=== PATIENT | female | born 1990 | race Caucasian/White ===

== ENCOUNTER → 2016-05-27 | Outpatient (CLI) | payer SELFPAY | END | disposition home or self-care (01) | LOC: LABWHC1 09:02 | PROVIDERS: ATTEND Obstetrics & Gynecology | DX: Z34.80 Encounter for supervision of other normal pregnancy, unspecified trimester (principal); Z3A.00 Weeks of gestation of pregnancy not specified | CPT/HCPCS: 36415; 84702 ==

== ENCOUNTER → 2016-07-21 | Outpatient (CLI) | payer OTHER ==
--- NOTE | 2016-07-21 10:41 | US ---
EXAMINATION TYPE: US OB <= 14 wk fetus DATE OF EXAM: 07/21/2016 10:30 AM COMPARISON: NONE CLINICAL HISTORY: Z36 CONFIRM DATES. EXAM PERFORMED: EXAM MEASUREMENTS: GESTATIONAL AGE / DATING Physician Established: (12 weeks/1 days) EDC: 02/01/2017 Dates by LMP: (12 weeks/1 days) EDC: 02/01/2017 Dates by First Scan: this is first scan Dates by Current Scan for: (12 weeks/2 days) EDC: 01/31/2017 MATERNAL ANATOMY Uterus: 14.4 x 6.0 x 8.1 Right Ovary: 3.4 x 1.8 x 2.3 cm Left Ovary: 3.0 x 3.5 x 2.1 cm Post CDS / Adnexa: wnl Presence of free fluid: none GESTATION / SURVEY CRL: 5.6 cm (12 weeks/2 days) Yolk Sac (normal less than 6mm): not seen Heart Rate: 155 bpm Rhythm: Normal IUP: Viable IUP Date of LMP: end march, correlates with NETTE IMPRESSION: viable IUP that correlates with LMP
[2016-07-21 11:24] LABS: Glucose 79 mg/dL (74-99); Non-African American GFR(MDRD) >60 (>60 ml/min/1.73 sqM)
[2016-07-21 11:33] LABS: CH 26.9; CHCM 33.1; HCT 40.3 % (34.0-46.0); HDW 2.63; HGB 13.4 gm/dL (11.4-16.0); MCH 27.2 pg (25.0-35.0); MCHC 33.3 g/dL (31.0-37.0); MCV 81.6 fL (80.0-100.0); Mean Platelet Volume 7.2; RBC 4.93 m/uL (3.80-5.40); RDW 13.3 % (11.5-15.5); WBC 8.8 k/uL (3.8-10.6)
[2016-07-21 11:53] LABS: Hepatitis B Surface Ag Index 0.06
[2016-07-22 03:46] LABS: Toxoplasma Antibody (IgG) <3.0 IU/mL (<7.2)
[2016-07-22 08:00] LABS: HIV-1/HIV-2 Ab Screen NONREAC (NON REAC)
== END | disposition home or self-care (01) ==
LOC: RADUSWWP 10:09
PROVIDERS: ATTEND Obstetrics & Gynecology
DX: Z34.81 Encounter for supervision of other normal pregnancy, first trimester (principal); O26.811 Pregnancy related exhaustion and fatigue, first trimester; Z3A.12 12 weeks gestation of pregnancy
CPT/HCPCS: 36415; 76801; 82565; 82947; 85027; 86762; 86777; 86778; 86780; 86850; 86900; 86901; 87340; 87389

== ENCOUNTER 2016-12-25 | Outpatient (CLI) | payer OTHER ==
--- NOTE | 2016-12-26 07:27 | P.MSEPDOC ---
Presenting Problems - Arrival Data Date of Arrival on Unit: 12/25/16 Time of Arrival on Unit: 12:51 Mode of Transport: Ambulatory - Complaint OB-Reason for Admission/Chief Complaint: Decreased Movement Medical History - Information : 4 Para: 1 Term: 1 : 0 Abortions: Spontaneous or Elective: 0 Number of Living Children: 1 - Gestational Age Gestational Age by NETTE (wks/days): 34 Weeks and 4 Days Review of Systems - Review of Systems Constitutional: No problems Breast: No problems ENT: No problems Cardiovascular: No problems Respiratory: No problems Gastrointestinal: No problems Genitourinary: No problems Musculoskeletal: No problems Neurological: No problems Skin: No problems Vital Signs - Temperature Temperature: 97.2 F Temperature Source: Tympanic - Pulse Right Brachial Pulse Rate: 113 Pulse Assessment Method: Automatic Cuff - Respirations Respiratory Rate: 16 Oxygen Delivery Method: Room Air - Blood Pressure Right Arm Blood Pressure: 129/75 Blood Pressure Mean: 93 Blood Pressure Source: Automatic Cuff Medical Screen Scoring (Pre) - Cervical Exam Dilation: Exam Deferred Effacement: Exam Deferred Membranes: Intact - Uterine Contractions Frequency: N/A Duration: N/A Intensity: N/A - Maternal Vital Signs Maternal Temperature: N/A Maternal Blood Pressure: N/A Signs of Preeclampsia: N/A Maternal Respirations: N/A - Maternal Trauma Maternal Trauma: N/A - Assessment Baseline FHR: 125 Heart Rate - NICHD Category: Category I (Normal) = 0 NST: Reactive Position: N/A Station: N/A - Total Score Total Score (Pre): 0 - Level of Risk Level of Risk: Low (0-5) Physician Notification (Pre) - Physician Notified Physician Notified Date: 12/25/16 Physician Notified Time: 12:30 Physician/Practitioner Notifed:: Dr. Castro Spoke With: Dr. Castro New Order Received: No Disposition - Disposition OB Disposition: Discharge to home Discharge Date: 12/25/16 Discharge Time: 12:45 I agree with the RN Medical Screening Exam: Yes Risk & Benefit of care provided described in d/c instruction: Yes Diagnosis: DECREASED MOVEMENTS, THIRD TRIMESTER, FETUS 1
== END 2016-12-25 14:36 | disposition home or self-care (01) ==
CPT/HCPCS: 59025; G0463; 99213

== ENCOUNTER 2017-01-27 10:11 | Inpatient (IN) | payer OTHER ==
[2017-01-27 10:51] LABS: Basophils % (A) 0 %; CHCM 32.5; Eosinophils # (A) 0.2 k/uL (0-0.7); Eosinophils % (A) 2 %; HCT 37.3 % (34.0-46.0); HDW 2.63; Luc # (Auto) 0.14; Luc % (Auto) 1; Lymphocytes # (A) 1.7 k/uL (1.0-4.8); Lymphocytes % (A) 17 %; MCH 25.7 pg (25.0-35.0); MCV 80.4 fL (80.0-100.0); Mean Platelet Volume 9.3; Monocytes # (A) 0.4 k/uL (0-1.0); Monocytes % (A) 4 %; Neutrophils # (A) 7.8 k/uL (1.3-7.7); Neutrophils % (A) 76 %; RBC 4.64 m/uL (3.80-5.40); RDW 15.4 % (11.5-15.5); WBC 10.2 k/uL (3.8-10.6); WBC (Perox) 10.71
[2017-01-27 11:00] LABS: Partial Thromboplastin Time 24.8 sec (22.0-30.0); Prothrombin Time 9.8 sec (9.0-12.0)
[2017-01-27] MEDS ORDERED: OXYTOCIN 10 UNIT/ML 1 ML VIAL IM PRN (11:30)
[2017-01-27] MEDS ORDERED: METHYLERGONOVINE 0.2 MG/ML 1 ML AMP IM PRN (11:30)
[2017-01-27] MEDS ORDERED: OXYTOCIN 20 UNITS/1000 ML NS 1,000 ML IV SCH ×2 (11:30→22:15)
[2017-01-27] MEDS ORDERED: TERBUTALINE 1 MG/ML VIAL SQ PRN (11:30)
[2017-01-27] MEDS ORDERED: CARBOPROST TROMETHAMINE 250 MCG/ML 1 ML AMP IM PRN (11:30)
[2017-01-27] MEDS ORDERED: LIDOCAINE 1% (PF) 10 MG/ML (30 ML SDV) SQ PRN (11:30)
[2017-01-27 11:33] LABS: Appearance,Urine Clear (Clear); Bilirubin,Urine Negative (Negative); Glucose,Urine (UA) Negative (Negative); Ketones,Urine Negative (Negative); Leukocyte Esterase,Urine Negative (Negative); Nitrite,Urine Negative (Negative); PH, Urine 6.5 (5.0-8.0); Protein,Urine Negative (Negative); Specific Gravity,Urine 1.008 (1.001-1.035); UA Billing (MACRO vs. MICRO) CHEM; Urobilinogen,Urine <2.0 mg/dL (<2.0)
[2017-01-27] MEDS: LACTATED RINGERS 1,000 ML IV SCH ×2 (11:43→17:07)
[2017-01-27 11:45] LABS: Blood Urea Nitrogen 6 mg/dL (7-17); Non-African American GFR(MDRD) >60 (>60 ml/min/1.73 sqM)
[2017-01-27 11:54] VITALS: BMI 45.4
[2017-01-27] MEDS ORDERED: BUTORPHANOL 1 MG/ML 1 ML VIAL IV PRN (15:46)
[2017-01-27] MEDS ORDERED: BUPIVACAINE (PF) 0.25% 30 ML VIAL ONE (17:14)
[2017-01-27] MEDS ORDERED: SODIUM CHLORIDE 0.9% 100 ML BAG ONE (17:14)
[2017-01-27] MEDS ORDERED: fentaNYL (PF) 50 MCG/ML 5 ML AMP ONE (17:14)
--- NOTE | 2017-01-27 17:31 | P.HPOB ---
History of Present Illness H&P Date: 01/27/17 Chief Complaint: gestational hypertension This patient is a pleasant 26-year-old 4 para 1 female estimated date of confinement 02/01/2017 estimated gestational age 39-2/7 weeks who presented to my office today for routine symmetrical visit and was found to have an elevated pressure 142/86. Patient's blood pressures normally are 120s over 80s so this is a change and she was complaining of a headache. She does evaluation here in labor and delivery shows again for the most part good blood pressures but a couple elevated pressures and I recommended proceed with delivery at this time. Preeclampsia blood work was negative. heart tones are reassuring. has been uncomplicated. Review of Systems Constitutional: Denies chills, Denies fever Cardiovascular: Denies chest pain, Denies shortness of breath Gastrointestinal: Reports heartburn Genitourinary: Reports Menstruation: Reports amenorrhea Neurological: Reports headaches Past Medical History Past Medical History: No Reported History, Hyperlipidemia Additional Past Medical History / Comment(s): patient is had a term vaginal delivery in March 2014. History of Any Multi-Drug Resistant Organisms: None Reported Past Surgical History: Cholecystectomy Past Anesthesia/Blood Transfusion Reactions: No Reported Reaction Past Psychological History: No Psychological Hx Reported Smoking Status: Never smoker Past Alcohol Use History: None Reported Past Drug Use History: None Reported - Past Family History Mother Family Medical History: No Reported History Medications and Allergies Home Medications Medication Instructions Recorded Confirmed Type Pnv with Ca,No.71/Iron/FA 1 tab PO DAILY 04/13/14 01/27/17 History [Vol-Plus Tablet] Allergies Allergy/AdvReac Type Severity Reaction Status Date / Time Penicillins Allergy Unknown Verified 01/27/17 10:20 Childhood Exam - Vital Signs Vital signs: Vital Signs Temp Pulse Resp BP 01/27/17 11:50 97.6 F 88 18 177/86 Intake and Output 01/27/17 01/27/17 01/27/17 06:59 14:59 22:59 Other: # Voids 3 Weight 135.624 kg Patient Weight 01/28/17 06:59 Weight 135.624 kg - OBG Physical Exam Abdomen: bowel sounds normal (Gravid and obese.), no diffuse tenderness, no bruit present, no guarding noted, no hepatomegaly, no splenomegaly, no mass Vulva: both: normal Vagina: normal moisture, no discharge Cervix: no lesion (cervix is 2 cm dilated 50% effaced and soft.), no discharge Uterus: enlarged (fundal height is 41 cm.) Results blood work shows she is AB+, rubella immune, RPR nonreactive, HIV nonreactive, hepatitis B negative, group B strep was negative, Glucola was normal, ultrasounds have been normal. Result Diagrams: 01/27/17 10:30 01/27/17 10:30 Abnormal Lab Results - Last 24 Hours (Table) 01/27/17 01/27/17 Range/Units 10:30 10:30 Neutrophils # 7.8 H (1.3-7.7) k/uL BUN 6 L (7-17) mg/dL Creatinine 0.47 L (0.52-1.04) mg/dL Assessment and Plan (1) Third trimester Narrative/Plan: This is a pleasant 26-year-old 4 para 1 female 39-2/7 weeks gestation with gestational hypertension without evidence of preeclampsia. Patient is a favorable cervix and is term therefore plan is to proceed with delivery at this time. Current Visit: Yes Status: Acute Code(s): Z34.93 - ENCNTR FOR SUPRVSN OF NORMAL PREG, UNSP, THIRD TRIMESTER SNOMED Code(s): 36587887 (2) Gestational hypertension Current Visit: Yes Status: Acute Code(s): O13.9 - GESTATIONAL HTN W/O SIGNIFICANT PROTEINURIA, UNSP TRIMESTER SNOMED Code(s): 88653467
[2017-01-27] MEDS ORDERED: BUPIVACAINE (PF) 0.25% 25 ML, fentaNYL (PF) 200 MCG in SODIUM CHLORIDE 0.9% 71 ML EPIDURAL ONE (17:34)
[2017-01-27] MEDS ORDERED: WITCH HAZEL 1 EACH MED..PAD TOPICAL PRN (22:05)
[2017-01-27] MEDS ORDERED: Acetaminophen-Codeine 300-30mg TAB PO PRN ×2 (22:05)
[2017-01-27] MEDS ORDERED: BISACODYL 10 MG SUPP RECTAL PRN (22:05)
[2017-01-27] MEDS ORDERED: diphenhydrAMINE 50 MG/ML 1 ML VIAL IVP PRN (22:05)
[2017-01-27] MEDS ORDERED: HYDROCORTISONE 2.5% RECTAL CREAM 30 GM TUBE RECTAL PRN (22:05)
[2017-01-27] MEDS ORDERED: ACETAMINOPHEN TAB 325 MG TAB PO PRN (22:05)
[2017-01-27] MEDS ORDERED: SIMETHICONE 80 MG CHEWABLE PO PRN (22:05)
[2017-01-27] MEDS ORDERED: diphenhydrAMINE 25 MG CAP PO PRN (22:05)
[2017-01-27] MEDS ORDERED: ZOLPIDEM 5 MG TAB PO PRN (22:05)
[2017-01-27] MEDS ORDERED: BENZOCAINE/MENTHOL SPRAY 1 GM/SPRAY AEROSOL TOPICAL PRN (22:05)
[2017-01-27] MEDS ORDERED: LANOLIN CREAM 5 GM TUBE TOPICAL PRN (22:05)
--- NOTE | 2017-01-27 22:14 | P.PROBDLV ---
Vaginal Delivery Note - . Vaginal Delivery Note: Normal vaginal delivery viable female Apgars 8 and 9 delivery time is 2152 hours. Please see dictated H&P for intimate details of this patient's admission. Brief summary this is a pleasant 26-year-old 4 para 1 female 39-2/7 weeks gestation who is admitted to labor and delivery for induction of labor secondary to gestational hypertension. Admission patient is 2 cm dilated and has artificial rupture membranes for clear fluid. Labor is induced with Pitocin per protocol. Patient receives an epidural at 3 cm dilated and then progresses to approximately 5 cm for a few hours. At this time patient then progresses quickly to complete pushes the head to the perineum. Posterior perineum was supported and we have controlled delivery of the ' s head over the intact perineum. Mouth and nares are bulb suctioned and there is a very loose nuchal cord. The 's anterior shoulder was then spontaneously delivered without effort and posterior shoulder and rest this 's body. This is a vigorous viable female Apgars are 8 and 9 delivery time was 2152 hrs. has spontaneous respirations and good cry and grossly appears normal. After delivery of the infant the umbilical cord is doubly clamped and cut appears to be trivascular. Senna spontaneously delivered intact. Inspection of perineum shows a 1 cm superficial laceration of the posterior perineum which is repaired with 3-0 Vicryl [id number] stitch. No other lacerations are noted. Estimated blood loss is 1 50 mL. There are no complications. Infant and mother stable delivery room.
[2017-01-27] MEDS: IBUPROFEN 600 MG TAB PO PRN (23:06)
--- NOTE | 2017-01-28 06:34 | P.PNOBGVD ---
Subjective - Subjective Patient reports: Reports appetite normal, Reports voiding normally, Reports pain well controlled, Reports ambulating normally : doing well Objective - Latest Vital Signs Latest vital signs: Vital Signs Temp Pulse Resp BP 01/28/17 04:00 97.8 F 99 18 145/78 01/27/17 23:59 97.2 F L 103 H 16 131/77 01/27/17 23:29 96 16 140/83 01/27/17 22:59 92 16 143/74 01/27/17 22:44 96.9 F L 88 16 121/61 01/27/17 22:28 85 16 119/59 01/27/17 22:13 92 18 127/59 01/27/17 21:57 96 18 134/60 01/27/17 11:50 97.6 F 88 18 177/86 Intake and Output 01/27/17 01/27/17 01/28/17 14:59 22:59 06:59 Output Total 150 150 Balance -150 -150 Output: Urine 150 Estimated Blood Loss 150 Other: # Voids 3 1 Weight 135.624 kg Patient Weight 01/28/17 06:59 Weight 135.624 kg - Exam Lungs: bilateral: normal Chest: Normal S1, Normal S2 Extremities: Present: normal Abdomen: Present: normal appearance, soft Uterus: Present: normal, firm - Labs Labs: Abnormal Lab Results - Last 24 Hours (Table) 01/27/17 01/27/17 Range/Units 10:30 10:30 Neutrophils # 7.8 H (1.3-7.7) k/uL BUN 6 L (7-17) mg/dL Creatinine 0.47 L (0.52-1.04) mg/dL Assessment and Plan Assessment: post day #1. Patient is resting without complaints. Vital signs are stable. Blood pressures continued to improve. Uterus is firm nontender she's having normal lochia. My impression this is a normal course. Plan is to continue close observation of her blood pressures, routine post care, and most likely discharge home tomorrow. (1) Third trimester Current Visit: Yes Status: Acute Code(s): Z34.93 - ENCNTR FOR SUPRVSN OF NORMAL PREG, UNSP, THIRD TRIMESTER SNOMED Code(s): 34648153 (2) Gestational hypertension Current Visit: Yes Status: Acute Code(s): O13.9 - GESTATIONAL HTN W/O SIGNIFICANT PROTEINURIA, UNSP TRIMESTER SNOMED Code(s): 12539259
[2017-01-28] MEDS: IBUPROFEN 600 MG TAB PO PRN ×3 (07:22→19:56)
[2017-01-28] MEDS: SENNOSIDES-DOCUSATE SODIUM 1 EACH TAB PO SCH ×2 (07:22→19:56)
[2017-01-29] MEDS: IBUPROFEN 600 MG TAB PO PRN ×2 (02:47→07:43)
--- NOTE | 2017-01-29 06:03 | P.PNOBGVD ---
Subjective - Subjective Patient reports: Reports appetite normal, Reports voiding normally, Reports pain well controlled, Reports ambulating normally : doing well Objective - Latest Vital Signs Latest vital signs: Vital Signs Temp Pulse Resp BP Pulse Ox 01/29/17 01:22 98.2 F 47 L 18 160/58 01/29/17 00:00 97 18 01/28/17 20:00 98.4 F 97 18 147/56 01/28/17 15:22 97.9 F 85 16 125/90 95 01/28/17 08:00 97.9 F 86 16 129/73 98 Intake and Output 01/28/17 01/28/17 01/29/17 14:59 22:59 06:59 Other: # Voids 1 - Exam Lungs: bilateral: normal Chest: Normal S1, Normal S2 Extremities: Present: normal Abdomen: Present: normal appearance, soft Uterus: Present: normal, firm Assessment and Plan (1) Third trimester Narrative/Plan: Post day #2. Patient is resting without new complaints. Vital signs are stable and she is afebrile. Uterus is firm nontender she's having normal lochia. She's had rare isolated elevated blood pressures otherwise blood pressures are fine. Patient wishes to go home today and felt to be stable for discharge home follow up with me in 6 weeks. To continue routine post care. Current Visit: Yes Status: Acute Code(s): Z34.93 - ENCNTR FOR SUPRVSN OF NORMAL PREG, UNSP, THIRD TRIMESTER SNOMED Code(s): 83976207 (2) Gestational hypertension Current Visit: Yes Status: Acute Code(s): O13.9 - GESTATIONAL HTN W/O SIGNIFICANT PROTEINURIA, UNSP TRIMESTER SNOMED Code(s): 39100708
--- NOTE | 2017-01-29 06:05 | P.DS ---
Providers Date of admission: 01/27/17 11:13 Expected date of discharge: 01/29/17 Attending physician: Leon Castro - Discharge Diagnosis(es) (1) Third trimester Current Visit: Yes Status: Acute (2) Gestational hypertension Current Visit: Yes Status: Acute Hospital Course: Please see dictated H&P for intimate details of this patient's admission. Brief summary this is a pleasant 26-year-old 4 para 1 female 39-2/7 weeks gestation who is admitted from the office for elevated blood pressures. Patient had induction of labor quickly goes on have vaginal delivery viable female . Please see dictated delivery note. day #2 patient's felt be stable for discharge home follow up with me in 6 weeks. Procedures: Induction of labor and normal vaginal delivery. Patient Condition at Discharge: Good Plan - Discharge Summary Discharge Rx Participant: Yes New Discharge Prescriptions: New Acetaminophen-Codeine 300-30mg [Tylenol w/codeine #3] 1 - 2 each PO Q4HR PRN #30 tab PRN Reason: Mild Pain exceeding Tylenol Ibuprofen [Motrin] 600 mg PO Q6HR PRN #40 tab PRN Reason: Mild Pain Or Fever >= 100.5 No Action Pnv with Ca,No.71/Iron/FA [Vol-Plus Tablet] 1 tab PO DAILY Discharge Medication List Pnv with Ca,No.71/Iron/FA [Vol-Plus Tablet] 1 tab PO DAILY 04/13/14 [History] Acetaminophen-Codeine 300-30mg [Tylenol w/codeine #3] 1 - 2 each PO Q4HR PRN # 30 tab 01/29/17 [Rx] Ibuprofen [Motrin] 600 mg PO Q6HR PRN #40 tab 01/29/17 [Rx] Follow up Appointment(s)/Referral(s): Leon Castro MD [STAFF PHYSICIAN] - 03/12/17 9:45 am Patient Instructions/Handouts: Vaginal Delivery (DC) Discharge Disposition: HOME SELF-CARE
[2017-01-29 07:55] VITALS: BP 108/91; PULSE 88; RESP 16; TEMP 97.8
== END 2017-01-29 10:20 | disposition home or self-care (01) | DRG 560 ==
LOC: FBPOP 10:11 → 4FBP 11:13
PROVIDERS: ADMIT Obstetrics & Gynecology; ATTEND Obstetrics & Gynecology
PROC: 10E0XZZ Delivery of Products of Conception, External Approach (ICD-10-PCS; principal; 2017-01-27)
PROC: 0HQ9XZZ Repair Perineum Skin, External Approach (ICD-10-PCS; 2017-01-27)
PROC: 3E033VJ Introduction of Other Hormone into Peripheral Vein, Percutaneous Approach (ICD-10-PCS; 2017-01-27)
PROC: 10907ZC Drainage of Amniotic Fluid, Therapeutic from Products of Conception, Via Natural or Artificial Opening (ICD-10-PCS; 2017-01-27)
PROC: 00HU33Z Insertion of Infusion Device into Spinal Canal, Percutaneous Approach (ICD-10-PCS; 2017-01-27)
PROC: 3E0R3BZ Introduction of Anesthetic Agent into Spinal Canal, Percutaneous Approach (ICD-10-PCS; 2017-01-27)
DX: O13.4 Gestational [pregnancy-induced] hypertension without significant proteinuria, complicating childbirth (principal); O69.81X0 Labor and delivery complicated by cord around neck, without compression, not applicable or unspecified; O70.0 First degree perineal laceration during delivery; Z37.0 Single live birth; Z3A.39 39 weeks gestation of pregnancy; Z79.899 Other long term (current) drug therapy; Z90.49 Acquired absence of other specified parts of digestive tract; Z88.0 Allergy status to penicillin
CPT/HCPCS: 59025; 81003; 82565; 83615; 84450; 84460; 84520; 84550; 85025; 85610; 85730; 88307; 99215

== ENCOUNTER → 2017-11-08 | Outpatient (CLI) | payer OTHER ==
--- NOTE | 2017-11-08 11:03 | US ---
EXAMINATION TYPE: Transabdominal DATE OF EXAM: 06/29/17 COMPARISON: 07/21/2016 CLINICAL HISTORY: O76 Absent Heart Tones. EXAM PERFORMED: Transabdominal (TA) EXAM MEASUREMENTS: GESTATIONAL AGE / DATING Physician Established: (11 weeks/5 days) EDC: 05/25/2018 Dates by LMP: (11 weeks/5 days) EDC: 05/25/2018 Dates by First Scan: No previous this is first scan Dates by Current Scan for: (11 weeks/3 days) EDC: 05/27/2018 MATERNAL ANATOMY Uterus: 14.5 x 7.5 x 8.9 cm Right Ovary: 2.9 x 2.9 x 2.9 cm Left Ovary: 3.4 x 3.6 x 2.0 cm Post CDS / Adnexa: wnl Presence of free fluid: none GESTATION / SURVEY CRL: 4.5 cm (11 weeks/3 days) Yolk Sac (normal less than 6mm): 0.5 cm Heart Rate: 152 bpm Rhythm: Normal IUP: Live IUP Date of LMP: 08/18/2017 Life IUP that correlates with LMP. IMPRESSION: Single live intrauterine with a sonographic age of 11 weeks and 3 days and estimated date o f delivery of 05/27/2018, concordant with menstrual age.
== END | disposition home or self-care (01) ==
LOC: RADUSWWP 10:04
PROVIDERS: ATTEND Obstetrics & Gynecology Obstetrics
DX: Z36.89 Encounter for other specified antenatal screening (principal); Z3A.11 11 weeks gestation of pregnancy
CPT/HCPCS: 76801

== ENCOUNTER 2018-02-11 18:54 | Observation (INO) | payer OTHER ==
[2018-02-11 19:59] LABS: Appearance,Urine Clear (Clear); Bilirubin,Urine Negative (Negative); Blood,Urine Negative (Negative); Color,Urine Light Yellow; Glucose,Urine (UA) Negative (Negative); Ketones,Urine Negative (Negative); Leukocyte Esterase,Urine Negative (Negative); Nitrite,Urine Negative (Negative); Protein,Urine Negative (Negative); Specific Gravity,Urine 1.011 (1.001-1.035); Urobilinogen,Urine <2.0 mg/dL (<2.0)
[2018-02-11] MEDS: BETAMET ACET-BETAMETH SOD PHOS 6 MG/ML VIAL IM SCH (21:27)
[2018-02-11] MEDS ORDERED: LACTATED RINGERS 1,000 ML IV ONE (21:31)
[2018-02-11] MEDS ORDERED: LIDOCAINE 1% INJ 10MG/ML (20 ML MDV) SQ PRN (21:31)
--- NOTE | 2018-02-11 21:31 | P.HPOB ---
History of Present Illness H&P Date: 02/11/18 Chief Complaint: Cramping This is a 27 year old 5 para 20-2 woman who has an estimated due date of 05/25/2018 based on LMP consistent with first trimester ultrasound. She presents at 25+ weeks gestation with several hours of worsening lower abdominal cramping. She reports having a slip and fall over 24 hours ago. She is not sure she had her abdomen but did hit her upper right arm and shoulder. She was evaluated by her primary care physician's for an injury which was negative. Unfortunately as the day progressed today she developed some lower abdominal pain and cramping. She was uncertain if this was bowel related but became concerned she was having contractions so she came in. She denies vaginal bleeding or leakage of fluids. Her has otherwise been uncomplicated up until now. She is on a aspirin 81 mg daily for history of 2 previous miscarriages. On evaluation in labor and delivery triage she has an irritable uterine pattern and positive heart tones consistent with gestational age. Obstetric history: Normal spontaneous vaginal deliveries at term in 2016 and 2014. She had first trimester miscarriages in 2014 and 2015. Laboratory data: Blood type AB+, antibody screen negative, rubella immune, VDRL nonreactive, hepatitis B surface antigen negative, HIV negative, gonorrhea and clinic cultures negative, hemoglobin A1c 5.1, early glucose tolerance testing 84 , normal Pap smear. Review of Systems All systems: negative Past Medical History Past Medical History: No Reported History, Hyperlipidemia Additional Past Medical History / Comment(s): patient is had a term vaginal delivery in March 20142016 History of Any Multi-Drug Resistant Organisms: None Reported Past Surgical History: Cholecystectomy Past Anesthesia/Blood Transfusion Reactions: No Reported Reaction Smoking Status: Never smoker - Past Family History Mother Family Medical History: No Reported History Medications and Allergies Home Medications Medication Instructions Recorded Confirmed Type Pnv with Ca,No.71/Iron/FA 1 tab PO DAILY 04/13/14 02/11/18 History [Vol-Plus Tablet] Aspirin 1 tab PO DAILY 02/11/18 02/11/18 History Allergies Allergy/AdvReac Type Severity Reaction Status Date / Time Penicillins Allergy Unknown Verified 02/11/18 19:09 Childhood Exam Intake and Output 02/11/18 02/11/18 02/11/18 06:59 14:59 22:59 Other: Weight 127.913 kg This is a morbidly obese, comfortable appearing female. HEENT is unremarkable. Her breathing is unlabored. Heart is a regular rate and rhythm. The abdomen is obese, soft and nontender with a fundal height at approximately the umbilicus. This is nontender. She has 1+ bilateral lower extremity edema. On pelvic examination there is extensive redundant vaginal tissue. The cervix is 1-1/2 cm at the external os and secondary to patient's body habitus and high station the internal os is difficult to assess. There is no obvious presenting part or dilation of the internal os. There is no bleeding or fluid noted. Assessment and Plan (1) 25 to 26 weeks gestation of Current Visit: Yes Status: Acute Code(s): VGD1283 - SNOMED Code(s): 978130932 (2) labor Current Visit: Yes Status: Acute Code(s): O60.00 - LABOR WITHOUT DELIVERY, UNSPECIFIED TRIMESTER SNOMED Code(s): 4478094 (3) Obesity Current Visit: Yes Status: Acute Code(s): E66.9 - OBESITY, UNSPECIFIED SNOMED Code(s): 892008902 (4) Fall Current Visit: Yes Status: Acute Code(s): W19.XXXA - UNSPECIFIED FALL, INITIAL ENCOUNTER SNOMED Code(s): 7256048 Plan: 27-year-old 5 para 20-2 woman at 25+ weeks gestation admitted for observation to rule out labor and/or abruption status post fall approximately 24 hours ago. Betamethasone for lung maturity will be administered now. Ultrasound for assessment of placenta and cervical length is ordered. fibronectin is currently pending. If it is positive strong consideration to transfer to a tertiary care facility will be made. At this time status is currently reassuring by external monitoring and she has no evidence of active labor. Time with Patient: Greater than 30
[2018-02-11] MEDS ORDERED: LACTATED RINGERS 1,000 ML IV SCH (21:45)
[2018-02-11 22:12] LABS: Basophils % (A) 0 %; Eosinophils # (A) 0.3 k/uL (0-0.7); Eosinophils % (A) 3 %; HCT 38.3 % (34.0-46.0); HGB 12.7 gm/dL (11.4-16.0); Lymphocytes # (A) 3.1 k/uL (1.0-4.8); Lymphocytes % (A) 25 %; MCH 26.7 pg (25.0-35.0); MCHC 33.1 g/dL (31.0-37.0); MCV 80.6 fL (80.0-100.0); Mean Platelet Volume 7.6; Monocytes # (A) 0.4 k/uL (0-1.0); Monocytes % (A) 4 %; Neutrophils # (A) 8.1 k/uL (1.3-7.7); Neutrophils % (A) 67 %; Platelet Count 193 k/uL (150-450); RBC 4.76 m/uL (3.80-5.40); RDW 14.3 % (11.5-15.5)
--- NOTE | 2018-02-11 22:45 | US ---
EXAMINATION TYPE: US OB limited DATE OF EXAM: 02/11/2018 COMPARISON: NONE CLINICAL HISTORY: 25 weeks possible labor, s/p fall. EXAM PERFORMED: Transvaginal (TV) and Transabdominal (TA) GESTATIONAL AGE / DATING Physician Established: (25 weeks/2 days) EDC: 05/25/2018 Dates by Current Scan: No growth performed on today?s study per ordering physician SURVEY PLACENTA: Anterior/fundal PREVIA: No Ultrasound evidence of abruption? No YUKO: 17.7 cm Normal Ultrasound evidence of premature rupture of membranes? No CERVICAL LENGTH (transvaginal: norm> 2.5cm): 3.5 cm (Supplemental transvaginal imaging performed to verify cervical length.) Ultrasound evidence of cervical incompetence? No PRESENTATION: Breech LIE: Longitudinal HEART RATE: 154 bpm RHYTHM: Normal IMPRESSION: This limited exam shows no evidence of a complicating process. Cervix is closed. Fluid i s adequate.
[2018-02-12 00:36] VITALS: BMI 42.8
[2018-02-12] MEDS ORDERED: CALCIUM CARBONATE 500 MG CHEWABLE PO PRN (09:12)
--- NOTE | 2018-02-12 10:44 | P.PNOBGAP ---
Subjective - Subjective Principal diagnosis: Cramping status post fall Interval history: She rested well overnight, minimal cramping. Denies bleeding or leakage of fluid. Reports good movement. Antepartum ROS: Reports movement normal, Denies new complaints, Denies loss of fluid, Denies vaginal bleeding, Denies contractions Objective - Vital Signs Vital Signs: Intake and Output 02/11/18 02/12/18 02/12/18 22:59 06:59 14:59 Other: Weight 127.913 kg 127.913 kg - Exam FHR: auscultation normal Auscultation: bilateral: normal Abdomen: Present: normal appearance, soft. Absent: tenderness Uterus: Present: normal. Absent: tenderness - Labs Labs: Abnormal Labs 02/11/18 21:47 WBC 12.0 H Neutrophils # 8.1 H Assessment and Plan (1) 25 to 26 weeks gestation of Narrative/Plan: 27-year-old 5 para 2021 woman at 25-3/7 weeks gestation status post fall 48 hours ago. She was admitted for observation secondary to some cramping and possible cervical dilation at the external os. Throughout the night she had a resolution of her cramping. Her fibronectin was negative. Cervical length by ultrasound is 3.5 cm and she has no evidence of active contraction pattern. Plan therefore is to continue observation through administration of the second dose of betamethasone and then discharge home from observation. She will be seen on Wednesday, February 14 in the office for reevaluation. Current Visit: Yes Status: Acute Code(s): HBG4756 - SNOMED Code(s): 455841540 (2) labor Current Visit: Yes Status: Acute Code(s): O60.00 - LABOR WITHOUT DELIVERY, UNSPECIFIED TRIMESTER SNOMED Code(s): 5259278 (3) Obesity Current Visit: Yes Status: Acute Code(s): E66.9 - OBESITY, UNSPECIFIED SNOMED Code(s): 936457186 (4) Fall Current Visit: Yes Status: Acute Code(s): W19.XXXA - UNSPECIFIED FALL, INITIAL ENCOUNTER SNOMED Code(s): 5404439
[2018-02-12] MEDS ORDERED: ACETAMINOPHEN TAB 325 MG TAB PO PRN (17:41)
[2018-02-12 20:02] VITALS: RESP 16
[2018-02-12] MEDS: BETAMET ACET-BETAMETH SOD PHOS 6 MG/ML VIAL IM SCH (21:30)
[2018-02-12 22:16] VITALS: BP 117/59; PULSE 76; TEMP 97.3
== END 2018-02-12 21:35 | disposition home or self-care (01) ==
LOC: FBPOP 18:54 → 4FBP 21:51
PROVIDERS: ADMIT Obstetrics & Gynecology; ATTEND Obstetrics & Gynecology Obstetrics
DX: O60.02 Preterm labor without delivery, second trimester (principal); O99.212 Obesity complicating pregnancy, second trimester; Z3A.25 25 weeks gestation of pregnancy; Z90.49 Acquired absence of other specified parts of digestive tract; Z79.82 Long term (current) use of aspirin; Z88.0 Allergy status to penicillin; E66.01 Morbid (severe) obesity due to excess calories; W01.0XXA Fall on same level from slipping, tripping and stumbling without subsequent striking against object, initial encounter
CPT/HCPCS: 96360 ×2; 96372 ×2; 82731; 85025; 81003; 76815; G0463; G0378 ×2; J0702 ×2; 99214

== ENCOUNTER 2018-02-18 19:55 | Outpatient (CLI) | payer OTHER ==
[2018-02-18 20:29] LABS: Appearance,Urine Clear (Clear); Bilirubin,Urine Negative (Negative); Blood,Urine Negative (Negative); Color,Urine Yellow; Glucose,Urine (UA) Negative (Negative); Ketones,Urine Negative (Negative); Leukocyte Esterase,Urine Negative (Negative); Nitrite,Urine Negative (Negative); Protein,Urine Trace (Negative); Specific Gravity,Urine 1.029 (1.001-1.035); Urobilinogen,Urine <2.0 mg/dL (<2.0)
[2018-02-18 20:54] VITALS: BP 121/68; PULSE 90; RESP 16; TEMP 97
--- NOTE | 2018-02-22 18:21 | P.MSEPDOC ---
Presenting Problems - Arrival Data Date of Arrival on Unit: 02/18/18 Time of Arrival on Unit: 19:55 Mode of Transport: Ambulatory - Complaint OB-Reason for Admission/Chief Complaint: Other Comment: cramping Medical History - Information : 5 Para: 2 Term: 2 : 0 Abortions: Spontaneous or Elective: 2 Number of Living Children: 2 - Gestational Age Gestational Age by NETTE (wks/days): 26 Weeks and 2 Days Review of Systems - Review of Systems Constitutional: No problems Breast: No problems ENT: No problems Cardiovascular: No problems Respiratory: No problems Gastrointestinal: No problems Genitourinary: No problems Musculoskeletal: No problems Neurological: No problems Skin: No problems Vital Signs - Temperature Temperature: 97 F Temperature Source: Temporal Artery Scan - Pulse Right Brachial Pulse Rate: 90 Pulse Assessment Method: Automatic Cuff - Respirations Respiratory Rate: 16 Oxygen Delivery Method: Room Air O2 Sat by Pulse Oximetry: 97 - Blood Pressure Right Arm Blood Pressure: 121/68 Blood Pressure Mean: 85 Blood Pressure Source: Automatic Cuff Medical Screen Scoring (Pre) - Cervical Exam Dilation: 1-3 cm = 1 Membranes: Intact - Uterine Contractions Frequency: N/A Duration: N/A Intensity: N/A - Maternal Vital Signs Maternal Temperature: N/A Maternal Blood Pressure: N/A Signs of Preeclampsia: N/A Maternal Respirations: N/A - Pain Assessment Pain Location and Character: Lower, Back, Abdomen Pain Scale Used: Numeric (1 - 10) Pain Intensity: 6 Pain Description: *Acute, Cramping Pain Frequency: Intermittent Pain Duration Units: Minutes Pain Behavior: None Exhibited Pain Aggravating Factors: None - Maternal Trauma Maternal Trauma: N/A - Assessment Baseline FHR: 145 Heart Rate - NICHD Category: Category I (Normal) = 0 NST: Reactive Position: N/A Station: N/A - Total Score Total Score (Pre): 1 - Level of Risk Level of Risk: Low (0-5) Physician Notification (Pre) - Physician Notified Physician Notified Date: 02/18/18 Physician Notified Time: 20:47 Physician/Practitioner Notifed:: Dr. Garcia Spoke With: Dr. Garcia - Notification Comment Comment: Dr. Garcia called and given report on pt in triage. pt c/o. vs wnl. ffn. obtained, amnisure negative. Vag exam of /-3. Orders recieved to d/c pt to home if. ffn is negative. Disposition - Disposition OB Disposition: Discharge to home Discharge Date: 02/18/18 Discharge Time: 21:00 I agree with the RN Medical Screening Exam: Yes Risk & Benefit of care provided described in d/c instruction: Yes Diagnosis: FALSE LABOR BEFORE 37 COMPLETED WEEKS OF GEST, THIRD TRI
== END 2018-02-18 21:00 | disposition home or self-care (01) ==
LOC: FBPOP 19:55
PROVIDERS: ATTEND Obstetrics & Gynecology Obstetrics
DX: O47.03 False labor before 37 completed weeks of gestation, third trimester (principal); Z3A.26 26 weeks gestation of pregnancy
CPT/HCPCS: 84112; 82731; 81003; G0463; 99213

== ENCOUNTER 2018-03-01 17:11 | Outpatient (CLI) | payer OTHER ==
[2018-03-01 20:50] VITALS: PULSE 92; RESP 16; TEMP 98.9
--- NOTE | 2018-03-03 07:54 | P.MSEPDOC ---
Presenting Problems - Arrival Data Date of Arrival on Unit: 03/01/18 Time of Arrival on Unit: 17:11 Mode of Transport: Ambulatory - Complaint OB-Reason for Admission/Chief Complaint: Pain Comment: pt states is here due to increased cramping and pressure points to suprapubic. area. rates pain at around 7 to 8. past preg history 2 vaginal term deliveies. pt was. here Feb 11 and where cervix found to be 2 cm 50 % . amnisure and Ffn completed both. visits both negative and celestone 2 doses 02/11 and . pt states pain is constant so. she just wants to be sure everything is ok Medical History - Information : 5 Para: 2 Term: 2 : 0 Abortions: Spontaneous or Elective: 0 Number of Living Children: 0 - Gestational Age Gestational Age by NETTE (wks/days): 28 Weeks and 0 Days Review of Systems - Review of Systems Constitutional: No problems Breast: No problems ENT: No problems Cardiovascular: No problems Respiratory: No problems Gastrointestinal: No problems Genitourinary: No problems Musculoskeletal: No problems Neurological: No problems Skin: No problems Vital Signs - Temperature Temperature: 98.9 F Temperature Source: Oral - Pulse Right Pulse Rate: 92 Pulse Assessment Method: Automatic Cuff - Respirations Respiratory Rate: 16 Oxygen Delivery Method: Room Air O2 Sat by Pulse Oximetry: 98 Medical Screen Scoring (Pre) - Cervical Exam Dilation: 1-3 cm = 1 - Uterine Contractions Frequency: N/A Duration: N/A Intensity: N/A - Maternal Vital Signs Maternal Temperature: N/A Maternal Blood Pressure: N/A Signs of Preeclampsia: N/A Maternal Respirations: N/A - Pain Assessment Pain Location and Character: Pelvic Pain Scale Used: Numeric (1 - 10) Pain Intensity: 7 Pain Description: Pressure - Maternal Trauma Maternal Trauma: N/A - Assessment Baseline FHR: 140 Station: N/A - Total Score Total Score (Pre): 1 - Level of Risk Level of Risk: N/A Physician Notification (Pre) - Notification Comment Comment: cervix 2cm external os, secondary to pts body habitus and alannah station. internal os is difficult to assess but funneled no obvious dilation of internal os. no. bleeding vag discharge noted. Dr Madrid aware not able to attempt NSt on pt due to body shape unless we sit by. her bed the entire time and hold it. states we do not need nst. Ffn negative Disposition - Disposition OB Disposition: Physician follow up in office, Discharge to home Discharge Date: 03/01/18 Discharge Time: 20:30 I agree with the RN Medical Screening Exam: Yes Risk & Benefit of care provided described in d/c instruction: Yes Diagnosis: FALSE LABOR, UNSPECIFIED
== END 2018-03-01 20:30 | disposition home or self-care (01) ==
LOC: FBPOP 17:11
PROVIDERS: ATTEND Obstetrics & Gynecology
DX: O47.9 False labor, unspecified (principal); Z3A.28 28 weeks gestation of pregnancy
CPT/HCPCS: 82731; G0463; 99213

== ENCOUNTER 2018-03-27 18:57 | Outpatient (CLI) | payer OTHER ==
[2018-03-27 20:19] LABS: Appearance,Urine Clear (Clear); Bilirubin,Urine Negative (Negative); Blood,Urine Negative (Negative); Color,Urine Yellow; Glucose,Urine (UA) Negative (Negative); Ketones,Urine Negative (Negative); Leukocyte Esterase,Urine Negative (Negative); Nitrite,Urine Negative (Negative); Protein,Urine Trace (Negative); Specific Gravity,Urine 1.024 (1.001-1.035); Urobilinogen,Urine <2.0 mg/dL (<2.0)
[2018-03-27 21:12] VITALS: BP 119/64; PULSE 91; RESP 16; TEMP 97
--- NOTE | 2018-04-12 09:11 | P.MSEPDOC ---
Presenting Problems - Arrival Data Date of Arrival on Unit: 03/27/18 Time of Arrival on Unit: 18:57 Mode of Transport: Wheelchair - Complaint OB-Reason for Admission/Chief Complaint: Possible Onset of Labor Medical History - Information : 5 Para: 2 Term: 2 : 0 Abortions: Spontaneous or Elective: 2 Number of Living Children: 2 - Gestational Age Gestational Age by NETTE (wks/days): 31 Weeks and 4 Days Review of Systems - Review of Systems Constitutional: No problems Breast: No problems ENT: No problems Cardiovascular: No problems Respiratory: No problems Gastrointestinal: No problems Genitourinary: No problems Musculoskeletal: No problems Neurological: No problems Skin: No problems Vital Signs - Temperature Temperature: 97 F Temperature Source: Temporal Artery Scan - Pulse Right Brachial Pulse Rate: 91 Pulse Assessment Method: Automatic Cuff - Respirations Respiratory Rate: 16 Oxygen Delivery Method: Room Air O2 Sat by Pulse Oximetry: 98 - Blood Pressure Right Arm Blood Pressure: 119/64 Blood Pressure Mean: 82 Blood Pressure Source: Automatic Cuff Medical Screen Scoring (Pre) - Cervical Exam Dilation: 0 cm = 0 Membranes: Intact - Uterine Contractions Frequency: N/A Duration: N/A Intensity: N/A - Maternal Vital Signs Maternal Temperature: N/A Maternal Blood Pressure: N/A Signs of Preeclampsia: N/A Maternal Respirations: N/A - Pain Assessment Pain Location and Character: Lower, Abdomen Pain Scale Used: Numeric (1 - 10) Pain Intensity: 6 Pain Description: Cramping Pain Frequency: Intermittent Pain Duration Units: Minutes Pain Behavior: Vocalization Pain Aggravating Factors: None - Assessment Baseline FHR: 130 Heart Rate - NICHD Category: Category I (Normal) = 0 NST: Reactive Position: N/A - Total Score Total Score (Pre): 0 - Level of Risk Level of Risk: Low (0-5) Physician Notification (Pre) - Physician Notified Physician Notified Date: 03/27/18 Physician Notified Time: 19:39 Physician/Practitioner Notifed:: Dr. Madrid New Order Received: Yes - Notification Comment Comment: Dr. Madrid called and given report on pt in tr. Pt c/o. VS wnl. reactive nst. Orders recieved to collect FFN, perform vag exam. send UA. To call with results. Medical Screen Scoring (Post) - Uterine Contractions Frequency: N/A Duration: N/A Intensity: N/A - Maternal Vital Signs Maternal Temperature: N/A Maternal Blood Pressure: N/A Signs of Preeclampsia: N/A Maternal Respirations: N/A - Pain Assessment Pain Location and Character: Lower, Abdomen Pain Scale Used: Numeric (1 - 10) Pain Intensity: 4 Pain Description: Cramping Pain Frequency: Intermittent Pain Duration Units: Minutes Pain Behavior: None Exhibited - Assessment Heart Rate: 135 Heart Rate - NICHD Category: Category I (Normal) = 0 NST: Reactive Position: N/A Station: N/A - Total Score Total Score (Post): 0 - Post Treatment Level of Risk Post Treatment Level of Risk: Low (0-5) Physician Notification (Post) - Physician Notified Physician Notified Date: 03/27/18 Physician Notified Time: 20:59 Physician/Practitioner Notified:: Dr. Madrid Spoke With: Dr. Madrid New Order Received: Yes - Notification Comment Comment: Dr. Madrid given report on pt lab results and vag exam. U/a results, negative. FFN. Orders recieved to d/c pt to home. To educate pt to increase fluids. Maintain. bedrest, pelvic rest. Disposition - Disposition OB Disposition: Discharge to home Discharge Date: 03/27/18 Discharge Time: 21:05 I agree with the RN Medical Screening Exam: Yes Risk & Benefit of care provided described in d/c instruction: Yes Diagnosis: FALSE LABOR BEFORE 37 COMPLETED WEEKS OF GEST, THIRD TRI
== END 2018-03-27 21:05 | disposition home or self-care (01) ==
LOC: FBPOP 18:57
PROVIDERS: ATTEND Obstetrics & Gynecology
DX: O47.03 False labor before 37 completed weeks of gestation, third trimester (principal); Z3A.31 31 weeks gestation of pregnancy
CPT/HCPCS: 59025; 82731; 81003; G0463; 99213

== ENCOUNTER 2018-04-12 12:37 | Outpatient (CLI) | payer SELFPAY ==
[2018-04-12 13:45] VITALS: BP 117/71; PULSE 115; RESP 16; TEMP 97.1
--- NOTE | 2018-06-01 10:34 | P.MSEPDOC ---
Presenting Problems - Arrival Data Date of Arrival on Unit: 04/12/18 Time of Arrival on Unit: 12:40 Mode of Transport: Ambulatory - Complaint Comment: fall yesterday afternoon with no trauma to belly Medical History - Information : 5 Para: 3 Term: 3 : 0 Abortions: Spontaneous or Elective: 1 Number of Living Children: 3 - Gestational Age Gestational Age by NETTE (wks/days): 33 Weeks and 6 Days Review of Systems - Review of Systems Constitutional: No problems Breast: No problems ENT: No problems Cardiovascular: No problems Respiratory: No problems Gastrointestinal: No problems Genitourinary: No problems Musculoskeletal: No problems Neurological: No problems Skin: No problems Vital Signs - Temperature Temperature: 97.1 F Temperature Source: Temporal Artery Scan - Pulse Right Brachial Pulse Rate: 115 Pulse Assessment Method: Automatic Cuff - Respirations Respiratory Rate: 16 Oxygen Delivery Method: Room Air - Blood Pressure Right Arm Blood Pressure: 117/71 Blood Pressure Mean: 86 Blood Pressure Source: Automatic Cuff Medical Screen Scoring (Pre) - Cervical Exam Dilation: Exam Deferred Effacement: Exam Deferred - Uterine Contractions Frequency: N/A Duration: N/A Intensity: N/A - Maternal Vital Signs Maternal Temperature: N/A Maternal Blood Pressure: N/A Signs of Preeclampsia: N/A Maternal Respirations: N/A - Total Score Total Score (Pre): 0 - Level of Risk Level of Risk: N/A Physician Notification (Pre) - Physician Notified Physician Notified Date: 04/12/18 Physician Notified Time: 13:24 Physician/Practitioner Notifed:: titus Spoke With: titus New Order Received: Yes - Notification Comment Comment: pt may be discharged home, warm bath/shower, rest and tylenol if needed. Disposition - Disposition OB Disposition: Discharge to home Discharge Date: 04/12/18 Discharge Time: 13:31 I agree with the RN Medical Screening Exam: Yes Risk & Benefit of care provided described in d/c instruction: Yes Diagnosis: ACUTE PAIN DUE TO TRAUMA
== END 2018-04-12 13:31 | disposition home or self-care (01) ==
LOC: FBPOP 12:37
PROVIDERS: ATTEND Obstetrics & Gynecology Obstetrics
DX: O9A.213 Injury, poisoning and certain other consequences of external causes complicating pregnancy, third trimester (principal); G89.11 Acute pain due to trauma; Z3A.33 33 weeks gestation of pregnancy
CPT/HCPCS: 59025; 99213

== ENCOUNTER 2018-05-04 15:06 | Outpatient (CLI) | payer SELFPAY ==
[2018-05-04 17:25] VITALS: BP 119/64; PULSE 91; RESP 16; TEMP 97
--- NOTE | 2018-05-20 10:31 | P.MSEPDOC ---
Presenting Problems - Arrival Data Date of Arrival on Unit: 05/04/18 Time of Arrival on Unit: 15:06 Mode of Transport: Ambulatory - Complaint OB-Reason for Admission/Chief Complaint: Rule Out PROM Medical History - Information : 5 Para: 2 Term: 2 : 0 Abortions: Spontaneous or Elective: 2 Number of Living Children: 2 - Gestational Age Gestational Age by NETTE (wks/days): 37 Weeks and 0 Days Review of Systems - Review of Systems Constitutional: No problems Breast: No problems ENT: No problems Cardiovascular: No problems Respiratory: No problems Gastrointestinal: No problems Genitourinary: No problems Musculoskeletal: No problems Neurological: No problems Skin: No problems Vital Signs - Temperature Temperature: 97.0 F Temperature Source: Temporal Artery Scan - Pulse Right Sitting Brachial Pulse Rate: 91 Pulse Assessment Method: Automatic Cuff - Respirations Respiratory Rate: 16 Oxygen Delivery Method: Room Air O2 Sat by Pulse Oximetry: 97 - Blood Pressure Right Arm Sitting Blood Pressure: 119/64 Blood Pressure Mean: 82 Blood Pressure Source: Automatic Cuff Medical Screen Scoring (Pre) - Cervical Exam Dilation: Exam Deferred Effacement: Exam Deferred Membranes: Intact - Uterine Contractions Frequency: N/A Duration: N/A Intensity: N/A - Maternal Vital Signs Maternal Temperature: N/A Maternal Blood Pressure: N/A Signs of Preeclampsia: N/A Maternal Respirations: N/A - Pain Assessment Pain Scale Used: Numeric (1 - 10) Pain Intensity: 0 - Maternal Trauma Maternal Trauma: N/A - Assessment Baseline FHR: 115 Heart Rate - NICHD Category: Category I (Normal) = 0 NST: Reactive Position: N/A Station: N/A - Total Score Total Score (Pre): 0 - Level of Risk Level of Risk: Low (0-5) Physician Notification (Pre) - Physician Notified Physician Notified Date: 05/04/18 Physician Notified Time: 16:20 Spoke With: Julius New Order Received: Yes - Notification Comment Comment: ok to dc with instruction Physician Notification (Post) - Notification Comment Comment: amnisure negative, fhts reactive, vitals wnl Disposition - Disposition OB Disposition: Discharge to home, Written follow up instructions reviewed Discharge Date: 05/04/18 Discharge Time: 16:25 I agree with the RN Medical Screening Exam: Yes Risk & Benefit of care provided described in d/c instruction: Yes Diagnosis: FALSE LABOR BEFORE 37 COMPLETED WEEKS OF GEST, THIRD TRI
== END 2018-05-04 16:25 | disposition home or self-care (01) ==
LOC: FBPOP 15:06
PROVIDERS: ATTEND Obstetrics & Gynecology Obstetrics
DX: O47.1 False labor at or after 37 completed weeks of gestation (principal); Z3A.37 37 weeks gestation of pregnancy
CPT/HCPCS: 59025; 84112; 99213

== ENCOUNTER 2018-05-06 16:38 | Outpatient (CLI) | payer SELFPAY ==
[2018-05-06 18:43] VITALS: BP 136/71; PULSE 85; RESP 16; TEMP 97
--- NOTE | 2018-06-01 10:56 | P.MSEPDOC ---
Presenting Problems - Arrival Data Date of Arrival on Unit: 05/06/18 Time of Arrival on Unit: 17:15 Mode of Transport: Ambulatory - Complaint OB-Reason for Admission/Chief Complaint: Decreased Movement Medical History - Information : 5 Para: 2 Term: 2 : 0 Abortions: Spontaneous or Elective: 2 Number of Living Children: 2 - Gestational Age Gestational Age by NETTE (wks/days): 37 Weeks and 2 Days Review of Systems - Review of Systems Constitutional: No problems Breast: No problems ENT: No problems Cardiovascular: No problems Respiratory: No problems Gastrointestinal: No problems Genitourinary: No problems Musculoskeletal: No problems Neurological: No problems Skin: No problems Vital Signs - Temperature Temperature: 97.0 F Temperature Source: Tympanic - Pulse Right Brachial Pulse Rate: 85 Pulse Assessment Method: Automatic Cuff - Respirations Respiratory Rate: 16 Oxygen Delivery Method: Room Air - Blood Pressure Right Arm Blood Pressure: 136/71 Blood Pressure Mean: 92 Blood Pressure Source: Automatic Cuff Medical Screen Scoring (Pre) - Cervical Exam Dilation: 1-3 cm = 1 Membranes: Intact - Uterine Contractions Frequency: N/A Duration: N/A Intensity: N/A - Maternal Vital Signs Maternal Temperature: N/A Maternal Blood Pressure: N/A Signs of Preeclampsia: N/A Maternal Respirations: N/A - Pain Assessment Pain Scale Used: Numeric (1 - 10) Pain Intensity: 0 Pain Management Goal: 0 - Maternal Trauma Maternal Trauma: N/A - Assessment Baseline FHR: 125 Heart Rate - NICHD Category: Category I (Normal) = 0 NST: Reactive Position: N/A Station: N/A - Total Score Total Score (Pre): 1 - Level of Risk Level of Risk: Low (0-5) Physician Notification (Pre) - Physician Notified Physician Notified Date: 05/06/18 Physician Notified Time: 17:20 Physician/Practitioner Notifed:: Dr. Okeefe Spoke With: Dr. Okeefe New Order Received: Yes - Notification Comment Comment: recheck cervix in one hour if no change send home Disposition - Disposition OB Disposition: Discharge to home Discharge Date: 05/06/18 Discharge Time: 18:42 I agree with the RN Medical Screening Exam: Yes Risk & Benefit of care provided described in d/c instruction: Yes Diagnosis: DECREASED MOVEMENTS, THIRD TRIMESTER, FETUS 1
== END 2018-05-06 18:47 | disposition home or self-care (01) ==
LOC: FBPOP 16:38
PROVIDERS: ATTEND Obstetrics & Gynecology Obstetrics
DX: O36.8130 Decreased fetal movements, third trimester, not applicable or unspecified (principal); Z3A.37 37 weeks gestation of pregnancy
CPT/HCPCS: 59025; 99213

== ENCOUNTER 2018-05-18 06:00 | Inpatient (IN) | payer OTHER ==
[2018-05-18] MEDS ORDERED: CARBOPROST TROMETHAMINE 250 MCG/ML 1 ML AMP IM PRN (06:09)
[2018-05-18] MEDS ORDERED: LIDOCAINE 0.5% (PF) 5 MG/ML (50 ML SDV) SQ PRN (06:09)
[2018-05-18] MEDS ORDERED: TERBUTALINE 1 MG/ML VIAL SQ PRN (06:09)
[2018-05-18] MEDS ORDERED: METHYLERGONOVINE 0.2 MG/ML 1 ML AMP IM PRN (06:09)
[2018-05-18] MEDS ORDERED: OXYTOCIN 10 UNIT/ML 1 ML VIAL IM PRN (06:09)
[2018-05-18] MEDS ORDERED: LACTATED RINGERS 1,000 ML IV SCH (06:15)
[2018-05-18] MEDS ORDERED: OXYTOCIN 30 UNITS/500 ML NS 30 UNIT in SALINE 1 500ML.BAG IV SCH (06:15)
[2018-05-18 06:20] VITALS: BMI 44.5
[2018-05-18 06:29] LABS: Basophils % (A) 0 %; Eosinophils # (A) 0.2 k/uL (0-0.7); Eosinophils % (A) 2 %; HCT 39.4 % (34.0-46.0); HGB 12.9 gm/dL (11.4-16.0); Lymphocytes # (A) 2.7 k/uL (1.0-4.8); Lymphocytes % (A) 24 %; MCH 26.1 pg (25.0-35.0); MCHC 32.6 g/dL (31.0-37.0); MCV 80.1 fL (80.0-100.0); Mean Platelet Volume 7.8; Monocytes # (A) 0.5 k/uL (0-1.0); Monocytes % (A) 4 %; Neutrophils % (A) 69 %; Platelet Count 232 k/uL (150-450); RBC 4.92 m/uL (3.80-5.40); RDW 14.2 % (11.5-15.5); WBC 11.6 k/uL (3.8-10.6)
--- NOTE | 2018-05-18 09:30 | P.HPOB ---
History of Present Illness H&P Date: 05/18/18 Chief Complaint: IUP at 39-0/7 weeks, elective induction of labor. This is a very pleasant 27-year-old 5 para 20-2 at 39-0/7 weeks that presents to labor and delivery for elective induction of labor. Patient struggled with contractions throughout the and wishes delivery. Patient notes good movement occasional contractions she denies vaginal bleeding or loss of fluid. She has been receiving routine care with myself. Next para blood work showed a blood type of A+, rubella immune, hepatitis B surface engine negative, HIV negative, RPR nonreactive, GBS negative. Review of Systems Constitutional: Denies chills, Denies fatigue, Denies fever Ears, nose, mouth and throat: Denies headache Cardiovascular: Reports leg edema Respiratory: Denies cough, Denies dyspnea Gastrointestinal: Reports diarrhea, Denies constipation, Denies nausea, Denies vomiting Genitourinary: Reports Past Medical History Past Medical History: No Reported History Additional Past Medical History / Comment(s): patient is had a term vaginal delivery in March 2014, 2016 History of Any Multi-Drug Resistant Organisms: None Reported Past Surgical History: Cholecystectomy Past Anesthesia/Blood Transfusion Reactions: No Reported Reaction Past Psychological History: No Psychological Hx Reported Smoking Status: Never smoker Past Alcohol Use History: None Reported Past Drug Use History: None Reported - Past Family History Mother Family Medical History: No Reported History Medications and Allergies Home Medications Medication Instructions Recorded Confirmed Type Pnv with Ca,No.71/Iron/FA 1 tab PO DAILY 04/13/14 05/18/18 History [Vol-Plus Tablet] Aspirin 1 tab PO DAILY 02/11/18 05/18/18 History Allergies Allergy/AdvReac Type Severity Reaction Status Date / Time Penicillins Allergy Unknown Verified 05/18/18 06:09 Childhood Exam Osteopathic Statement: *. No significant issues noted on an osteopathic structural exam other than those noted in the History and Physical/Consult. Vital Signs Temp Pulse Resp BP Pulse Ox 05/18/18 06:07 97.1 F L 101 H 16 139/84 97 Intake and Output 05/17/18 05/18/18 05/18/18 22:59 06:59 14:59 Other: Weight 132.903 kg Targeted physical exam was performed on this date in general this is a well- nourished well-developed female in no acute distress. She exhibits nonlabored breathing in her lungs are clear to auscultation bilaterally, heart is known to have a regular rate and rhythm, heart tones are noted to be reactive and she is sebastien irregularly it is difficult to graft contractions secondary to her body habitus. On cervical exam she is noted to be 3 cm/50/-3, amniotomy is performed and clear fluid was obtained. Due to difficulty to monitor the heart tones secondary to body habitus the scalp electrode was placed in addition. Results Result Diagrams: 05/18/18 06:20 Abnormal Lab Results - Last 24 Hours (Table) 05/18/18 Range/Units 06:20 WBC 11.6 H (3.8-10.6) k/uL Neutrophils # 8.0 H (1.3-7.7) k/uL Assessment and Plan (1) Term Current Visit: Yes Status: Acute Code(s): Z34.80 - ENCOUNTER FOR SUPRVSN OF NORMAL , UNSP TRIMESTER SNOMED Code(s): 31351063 (2) Obesity Current Visit: No Status: Acute Code(s): E66.9 - OBESITY, UNSPECIFIED SNOMED Code(s): 642436190 Plan: Patient is admitted to labor and delivery for Pitocin induction of labor. Patient does request epidural we will consult anesthesia as needed. Anticipate normal spontaneous vaginal delivery later today.
[2018-05-18] MEDS ORDERED: ROPIVACAINE 100 MG, fentaNYL (PF) 200 MCG in SODIUM CHLORIDE 0.9% 76 ML EPIDURAL ONE (13:43)
[2018-05-18] MEDS ORDERED: WITCH HAZEL 1 EACH MED..PAD TOPICAL PRN (14:40)
[2018-05-18] MEDS ORDERED: LANOLIN CREAM 5 GM TUBE TOPICAL PRN (14:40)
[2018-05-18] MEDS ORDERED: diphenhydrAMINE 50 MG/ML 1 ML VIAL IVP PRN ×2 (14:40)
[2018-05-18] MEDS ORDERED: ZOLPIDEM 5 MG TAB PO PRN (14:40)
[2018-05-18] MEDS ORDERED: HYDROCORTISONE 2.5% RECTAL CREAM 30 GM TUBE RECTAL PRN (14:40)
[2018-05-18] MEDS ORDERED: BENZOCAINE/MENTHOL SPRAY 1 GM/SPRAY AEROSOL TOPICAL PRN (14:40)
[2018-05-18] MEDS ORDERED: diphenhydrAMINE 25 MG CAP PO PRN (14:40)
[2018-05-18] MEDS ORDERED: SIMETHICONE 80 MG CHEWABLE PO PRN (14:40)
[2018-05-18] MEDS ORDERED: diphenhydrAMINE 50 MG CAP PO PRN (14:40)
--- NOTE | 2018-05-18 14:44 | P.PROBDLV ---
Vaginal Delivery Note - . Vaginal Delivery Note: This is a 27-year-old 5 para 20-2 at 39 0/7 weeks that presented to labor and delivery for elective induction of labor this morning. Patient was started on Pitocin induction of labor progressed to 4 cm becoming uncomfortable and requesting epidural. Anesthesia placed epidural without difficulty. Patient progressed to complete began pushing and had a normal spontaneous vaginal delivery of a viable female at 1428, weight of 6 lbs. 11 oz. with Apgars of 8 and 9 at one and 5 minutes respectively. did have a spontaneous cry at delivery. After a two-minute delayed the umbilical cord was doubly clamped and cut and the placenta was delivered spontaneously intact with a three-vessel cord. Of note a loose nuchal cord was noted on delivery and delivered through. On inspection the patient's vaginal vault no lacerations were noted. Patient's uterus was firm and below the umbilicus at this time. Estimated blood loss 200 mL. Patient and tolerated delivery well and are resting comfortably
[2018-05-18] MEDS ORDERED: OXYTOCIN 20 UNITS/1000 ML NS 1,000 ML IV SCH (14:45)
[2018-05-18] MEDS: IBUPROFEN 600 MG TAB PO PRN ×2 (18:05→23:43)
[2018-05-18] MEDS: SENNOSIDES-DOCUSATE SODIUM 1 EACH TAB PO SCH (19:35)
[2018-05-18] MEDS: ACETAMINOPHEN TAB 325 MG TAB PO PRN (22:25)
[2018-05-19] MEDS: ACETAMINOPHEN TAB 325 MG TAB PO PRN ×3 (02:22→12:57)
[2018-05-19 07:16] LABS: Basophils % (A) 0 %; Eosinophils # (A) 0.2 k/uL (0-0.7); Eosinophils % (A) 2 %; HCT 33.6 % (34.0-46.0); HGB 10.8 gm/dL (11.4-16.0); Lymphocytes # (A) 2.8 k/uL (1.0-4.8); Lymphocytes % (A) 27 %; MCH 26.4 pg (25.0-35.0); MCHC 32.2 g/dL (31.0-37.0); MCV 82.2 fL (80.0-100.0); Mean Platelet Volume 9.1; Monocytes # (A) 0.4 k/uL (0-1.0); Monocytes % (A) 4 %; Neutrophils # (A) 6.7 k/uL (1.3-7.7); Neutrophils % (A) 66 %; Platelet Count 181 k/uL (150-450); RBC 4.09 m/uL (3.80-5.40); RDW 14.6 % (11.5-15.5); WBC 10.1 k/uL (3.8-10.6)
[2018-05-19] MEDS: SENNOSIDES-DOCUSATE SODIUM 1 EACH TAB PO SCH (07:35)
[2018-05-19 07:42] VITALS: BP 128/80; PULSE 94; RESP 18; TEMP 98.3
--- NOTE | 2018-05-19 08:14 | P.DS ---
Providers Date of admission: 05/18/18 06:03 Expected date of discharge: 05/19/18 Attending physician: Rosie Garcia Primary care physician: Stated None - Discharge Diagnosis(es) (1) Term Current Visit: Yes Status: Acute (2) Obesity Current Visit: No Status: Acute Hospital Course: This is a 27-year-old 5 para 20-2 at 39-0/7 weeks that presented to labor and delivery for elective induction of labor. Patient was admitted to labor and delivery Pitocin induction was begun. Amniotomy was performed and clear fluid was obtained. Patient progressed through labor eventually becoming complete and requesting epidural. This epidural was placed without the occulta by the anesthesia department. She progressed to complete began pushing and had a normal spontaneous vaginal delivery of a viable female infant at 1428, weight of 6 lbs. 11 oz. with Apgars of 8 and 9 at one and 5 minutes respectively. Patient's course has been uneventful. On this day #1 she is ambulating and voiding without difficulty. She is tolerating a regular diet without nausea or vomiting. Her lochia is moderate at this time. She denies concerns and does wish discharge home at 24 hours. Patient Condition at Discharge: Good Plan - Discharge Summary New Discharge Prescriptions: No Action Pnv with Ca,No.71/Iron/FA [Vol-Plus Tablet] 1 tab PO DAILY Aspirin 1 tab PO DAILY Discharge Medication List Pnv with Ca,No.71/Iron/FA [Vol-Plus Tablet] 1 tab PO DAILY 04/13/14 [History] Aspirin 1 tab PO DAILY 02/11/18 [History] Follow up Appointment(s)/Referral(s): Rosie Garcia DO [Doctor of Osteopathic Medicine] - 4 Weeks Patient Instructions/Handouts: Vaginal Delivery (DC), Vaginal Delivery (GEN) Discharge Disposition: HOME SELF-CARE
[2018-05-19] MEDS ORDERED: PRENATAL VIT-IRON-FOLIC ACID 1 EACH CAP PO SCH (09:00)
[2018-05-19] MEDS: IBUPROFEN 600 MG TAB PO PRN (09:38)
== END 2018-05-19 15:30 | disposition home or self-care (01) | DRG 807 ==
LOC: 4FBP 06:03
PROVIDERS: ADMIT Obstetrics & Gynecology Obstetrics; ATTEND Obstetrics & Gynecology Obstetrics
PROC: 10E0XZZ Delivery of Products of Conception, External Approach (ICD-10-PCS; principal; 2018-05-18)
PROC: 3E033VJ Introduction of Other Hormone into Peripheral Vein, Percutaneous Approach (ICD-10-PCS; 2018-05-18)
PROC: 10907ZC Drainage of Amniotic Fluid, Therapeutic from Products of Conception, Via Natural or Artificial Opening (ICD-10-PCS; 2018-05-18)
PROC: 00HU33Z Insertion of Infusion Device into Spinal Canal, Percutaneous Approach (ICD-10-PCS; 2018-05-18)
PROC: 3E0R3BZ Introduction of Anesthetic Agent into Spinal Canal, Percutaneous Approach (ICD-10-PCS; 2018-05-18)
DX: O60.23X1 Term delivery with preterm labor, third trimester, fetus 1 (principal); Z37.0 Single live birth; O69.81X0 Labor and delivery complicated by cord around neck, without compression, not applicable or unspecified; O99.214 Obesity complicating childbirth; E66.9 Obesity, unspecified; Z3A.39 39 weeks gestation of pregnancy; Z79.82 Long term (current) use of aspirin; Z79.899 Other long term (current) drug therapy
CPT/HCPCS: 85025; 86850; 86900; 86901; 88307

== ENCOUNTER 2018-07-31 21:35 | Inpatient (IN) | payer MEDICAID, OTHER ==
[2018-07-31 21:56] VITALS: RESP 18
[2018-07-31 22:38] LABS: Amphetamine Screen,Urine Detected (NotDetected); Barbiturate Screen,Urine Not Detected (NotDetected); Benzodiazepines Screen,Urine Not Detected (NotDetected); Cocaine Screen,Urine Not Detected (NotDetected); Methadone Screen, Urine Not Detected (NotDetected); Opiate Screen,Urine Not Detected (NotDetected); Oxycodone Screen, Urine Not Detected (NotDetected); Phencyclidine Screen,Urine Not Detected (NotDetected); Tricyclic Antidepressant,Urine Not Detected (NotDetected); Urn Cannabinoid Scrn Not Detected (NotDetected)
--- NOTE | 2018-07-31 22:39 | ED ---
Psych HPI - General Chief Complaint: Psychiatric Symptoms Stated Complaint: Mental Health Time Seen by Provider: 07/31/18 21:58 Source: patient Mode of arrival: ambulatory - History of Present Illness Initial Comments: Torie is a 28-year-old female with a history of anxiety and a history of depression after her second . Patient is currently 2-1/2 months after having her third child, she is currently from her children's father, she recently experienced the loss of her aunt yesterday attended her aunt's . Patient reports she just feels overwhelmed with depression and emotional changes and doesn't feel safe at home. Patient reports she has a great relationship with her children, she states that she's bonding well with her . She states that she enjoys being a mother and she wants to be alive for her children however after going to the listing to the [employer] talk about her [employer] christiano she has continuously been thinking about how bad she was that she could be in heaven so she didn't experience depression and hormonal shifts that she's been experiencing. - Related Data Home Medications Medication Instructions Recorded Confirmed Phentermine HCl [Adipex-P] 37.5 mg PO DAILY 07/31/18 07/31/18 Allergies Allergy/AdvReac Type Severity Reaction Status Date / Time Penicillins Allergy Unknown Verified 05/18/18 06:09 Childhood shellfish derived [Lobster] Allergy Unknown Verified 07/31/18 22:06 Childhood Review of Systems ROS Statement: Those systems with pertinent positive or pertinent negative responses have been documented in the HPI. ROS Other: All systems not noted in ROS Statement are negative. Past Medical History Past Medical History: No Reported History Additional Past Medical History / Comment(s): patient is had a term vaginal delivery in March 2014, 2016 History of Any Multi-Drug Resistant Organisms: None Reported Past Surgical History: Cholecystectomy Past Anesthesia/Blood Transfusion Reactions: No Reported Reaction Past Psychological History: Depression Smoking Status: Never smoker Past Alcohol Use History: Rare Past Drug Use History: None Reported - Past Family History Mother Family Medical History: No Reported History General Exam - General Exam Comments Initial Comments: Physical Exam GENERAL: Patient is well-developed and well-nourished. Patient is nontoxic and well- hydrated and is in no distress. HENT: Normocephalic, Atraumatic. EYES: PERRL, EOMI PULMONARY: Unlabored respirations. No audible rales rhonchi or wheezing was noted. CARDIOVASCULAR: There is a regular rate and rhythm without any murmurs gallops or rubs. ABDOMEN: Soft and nontender with normal bowel sounds. SKIN: Skin is clear with no lesions or rashes and otherwise unremarkable. : Deferred NEUROLOGIC: Patient is alert and oriented x3. Moving all extremities spontaneously MUSCULOSKELETAL: Normal extremities with adequate strength and full range of motion. No lower extremity swelling or edema. No calf tenderness. PSYCHIATRIC: Depressed, passively suicidal Limitations: no limitations Course Vital Signs 07/31/18 21:51 Temperature 97.9 F Pulse Rate 82 Respiratory 18 Rate Blood Pressure 154/86 O2 Sat by Pulse 99 Oximetry Medical Decision Making - Medical Decision Making Patient was seen and evaluated, patient is to have months and experiencing depression thoughts of wanting to be , conflicting thoughts because she does enjoy being a mother and wants to stay alive for her children but doesn't want to be alive and is experiencing significant emotional swings. Patient doesn't feel safe at home. Patient was medically cleared for evaluation by EPS Patient was evaluated by EPS admitted to psychiatric floor. - Lab Data Lab Results 07/31/18 Range/Units 22:10 Urine HCG, Qual Not Detected (Not Detectd) Disposition Clinical Impression: Post depression Disposition: TRANSFER TO PSYCH HOSP/UNIT Condition: Stable Is patient prescribed a controlled substance at d/c from ED?: No Referrals: Talha Braun MD [Primary Care Provider] - 1-2 days
[2018-07-31] MEDS ORDERED: MAG HYDROX/AL HYDROX/SIMETH 30 ML CUP PO PRN (22:46)
[2018-07-31] MEDS ORDERED: ACETAMINOPHEN TAB 325 MG TAB PO PRN (22:46)
[2018-07-31] MEDS ORDERED: MAGNESIUM HYDROXIDE 2,400 MG/10 ML CUP PO PRN (22:46)
[2018-07-31] MEDS: LORazepam 1 MG TAB PO PRN (23:59)
[2018-08-01 00:49] VITALS: BMI 42.0
[2018-08-01] MEDS: buPROPion XL 150 MG TAB.ER.24H PO SCH (11:07)
[2018-08-01 11:18] LABS: Basophils % (A) 0 %; Eosinophils # (A) 0.2 k/uL (0-0.7); Eosinophils % (A) 3 %; HCT 39.9 % (34.0-46.0); HGB 12.9 gm/dL (11.4-16.0); Lymphocytes # (A) 0.8 k/uL (1.0-4.8); Lymphocytes % (A) 14 %; MCH 26.1 pg (25.0-35.0); MCHC 32.2 g/dL (31.0-37.0); MCV 81.1 fL (80.0-100.0); Mean Platelet Volume 7.5; Monocytes # (A) 0.3 k/uL (0-1.0); Monocytes % (A) 6 %; Neutrophils # (A) 4.1 k/uL (1.3-7.7); Neutrophils % (A) 74 %; Platelet Count 207 k/uL (150-450); RBC 4.93 m/uL (3.80-5.40); RDW 14.4 % (11.5-15.5); WBC 5.6 k/uL (3.8-10.6)
[2018-08-01 11:31] LABS: ALT 87 U/L (9-52); AST 31 U/L (14-36); Albumin 4.5 g/dL (3.5-5.0); Alkaline Phosphatase 62 U/L (38-126); Anion Gap 9 mmol/L; Blood Urea Nitrogen 9 mg/dL (7-17); Calcium 9.5 mg/dL (8.4-10.2); Carbon Dioxide 28 mmol/L (22-30); Chloride 103 mmol/L (98-107); Cholesterol 110 mg/dL (<200); Glucose 80 mg/dL (74-99); HDL Cholesterol 44 mg/dL (40-60); LDL Cholesterol,Calculated 54 mg/dL (0-99); Potassium 4.1 mmol/L (3.5-5.1); Sodium 140 mmol/L (137-145); Total Bilirubin 0.4 mg/dL (0.2-1.3); Total Protein 7.2 g/dL (6.3-8.2); Triglycerides 60 mg/dL (<150)
--- NOTE | 2018-08-01 11:51 | P.HP ---
Psychiatric H&P - . H&P Date: 08/01/18 History & Physical: Allergies Allergy/AdvReac Type Severity Reaction Status Date / Time Penicillins Allergy Unknown Unknown Verified 08/01/18 00:35 Childhood shellfish derived [Lobster] Allergy Unknown Unknown Verified 08/01/18 00:35 Childhood Vital Signs Temp 97.2 F L 08/01/18 00:39 Pulse 99 08/01/18 00:39 Resp 18 08/01/18 00:39 BP 136/91 08/01/18 00:39 Pulse Ox 99 07/31/18 21:51 Intake & Output 07/31/18 08/01/18 08/01/18 18:59 06:59 18:59 Weight 123.831 kg Laboratory Last Values Urine HCG, Qual Not Detected (Not Detectd) 07/31/18 22:10 Urine Opiates Screen Not Detected (NotDetected) 07/31/18 22:10 Ur Oxycodone Screen Not Detected (NotDetected) 07/31/18 22:10 Urine Methadone Screen Not Detected (NotDetected) 07/31/18 22:10 Ur Propoxyphene Screen Not Detected (NotDetected) 07/31/18 22:10 Ur Barbiturates Screen Not Detected (NotDetected) 07/31/18 22:10 U Tricyclic Antidepress Not Detected (NotDetected) 07/31/18 22:10 Ur Phencyclidine Scrn Not Detected (NotDetected) 07/31/18 22:10 Ur Amphetamines Screen Detected (NotDetected) H 07/31/18 22:10 U Methamphetamines Scrn Not Detected (NotDetected) 07/31/18 22:10 U Benzodiazepines Scrn Not Detected (NotDetected) 07/31/18 22:10 Urine Cocaine Screen Not Detected (NotDetected) 07/31/18 22:10 U Marijuana (THC) Screen Not Detected (NotDetected) 07/31/18 22:10 Assessment and Plan Assessment: Torie is a 28-year-old female with a history of anxiety and a history of depression after her second . Patient is currently 2-1/2 months after having her third child, she is currently from her children's father, she recently experienced the loss of her aunt yesterday attended her aunt's . Patient reports she just feels overwhelmed with depression and emotional changes and doesn't feel safe at home. Patient reports she has a great relationship with her children, she states that she's bonding well with her . She states that she enjoys being a mother and she wants to be alive for her children however after going to the listing to the dynamite reclaimer talk about her Ambien christiano she has continuously been thinking about how bad she was that she could be in [facility] so she didn't experience depression and hormonal shifts that she's been experiencing. Pt lives with her who brought her in stating she may have post psychosis. She says she does not feel safe to go home. She just wants to . She cant explain why she feels the way she does or even understand why. She thinks that [facility] would be a yash place to be and she just wants to go there. Her stated that she has not been the same since she had her secon child so close to the first one, Pt was tearful and asked to be admitted - Related Data Home Medications Medication Instructions Recorded Confirmed Phentermine HCl [Adipex-P] 37.5 mg PO DAILY 07/31/18 07/31/18 Allergies Allergy/AdvReac Type Severity Reaction Status Date / Time Penicillins Allergy Unknown Verified 05/18/18 06:09 Childhood shellfish derived [Lobster] Allergy Unknown Verified 07/31/18 22:06 Childhood Past Medical History Past Medical History: No Reported History Additional Past Medical History / Comment(s): patient is had a term vaginal delivery in March 20142016 History of Any Multi-Drug Resistant Organisms: None Reported Past Surgical History: Cholecystectomy Past Anesthesia/Blood Transfusion Reactions: No Reported Reaction Past Psychological History: Depression Smoking Status: Never smoker Past Alcohol Use History: Rare Past Drug Use History: None Reported Musculoskeletal Examination - Abnormal/Involuntary Movements: [none] Strength: [greater than antigravity (greater than/equal to 3/5) in all extremities] Muscle Tone: [no impairment] Gait: [grossly normal Station: [grossly normal] Mental Status Examination - this is a 28-year-old female is 2-1/2 months with depression who lives with her 3 children and a boyfriend who has 2 teenagers. She is frustrated with the living situation became depressed and overwhelmed and wanted to harm or self. She was on phentermine for weight loss which appeared to make her depression worse and increased her anxiety. General Appearance: [ casual, appears stated age Speech/Language: [spontaneous Attitude/Behavior: [cooperative Mood: [ depressed, anxious, Affect: [full range, lively, flat, incongruent, labile, blunted constricted, other] Orientation: [time, person, place situation] Thought Content: [wnl, denies delusions, obsessions, phobias, other] Risk Factors: [Admits suicidal (ideations, plan), denies Homicidal (ideations, plan), other] Perception: [wnl, denies hallucinations (auditory, visual, tactile), other] Thought Processes: [goal-oriented Concentration/Attention Span: [wnl] [Per observation and interview with the patient] Recent Memory: [wnl Remote Memory: [wnl] [past events, as related history] Intelligence: [Average] [based on history, based on vocabulary, syntax, grammar, and content] Judgement: [Fair] [per patient's behavior/history of present illness] Insight: [Good] [understanding severity of illness/history of present illness] Admitting Diagnosis: [Major depressive disorder as result of 2-1/2 months post delivery] Patient Strengths - Personal Skills: [x] Achievements: [x] Steady employment/financial stability: [x Housing stability: [x] Able to vocalize needs: [x] Patient Limitations: [medication Initial Plan of Care: [She admitted on a formal voluntary basis for depression and suicidal ideation. She'll be evaluated by medicine, psychiatry, nursing staff, social work and occupational therapy. She will be placed on 15 minute checks for safety while on the psychiatric unit. She will be encouraged to go to [facility] to engage in groups take her medications and be positive in the milieu on the unit. She'll be started on Wellbutrin 150 mg by mouth every morning and ReVia 50 mg for impulsive eating. On 08/02/2017 by increase her Wellbutrin to 300 mg extended release and we'll most likely discharge since she has 3 children at home that need to be taking care of and a part-time job she needs to get back to work] Estimated Length of Stay: [2 days] Initial Discharge Plan: [[facility] Prognosis: [Good Justification for Inpatient Hospitalization - [ anxiety, depression resulting in significant loss of functioning.] [Dangerous to self with need for controlled environment.] [Emotional or behavioral conditions and complications requiring 24 hour medical and nursing care.] [Need for special drug therapy, or other therapeutic program requiring continuous hospitalization.] [Failure of social or occupational functioning.] (1) Major depressive disorder Current Visit: Yes Status: Acute Priority: High Code(s): F32.9 - MAJOR DEPRESSIVE DISORDER, SINGLE EPISODE, UNSPECIFIED SNOMED Code(s): 425658950 (2) Post depression Current Visit: Yes Status: Acute Priority: High Code(s): O99.345 - OTHER MENTAL DISORDERS COMPLICATING THE PUERPERIUM; F53.0 - DEPRESSION SNOMED Code(s): 86403186
--- NOTE | 2018-08-01 14:50 | P.HPIM ---
History of Present Illness H&P Date: 08/01/18 Patient is a 28-year-old female with a past medical history of morbid obesity who presented to the ED for suicidal ideation and depression. The patient reports that she believes it is due to her depression, she just had a baby 4 months ago. She notes feeling better since admission to the psychiatric unit and reports that she slept really well last night. She otherwise is free of active complaints and is denying any additional past medical history. She is denying chest pain, shortness of breath, fever, chills, cough, nausea, vomiting, or abdominal pain. Review of Systems Pertinent positives and negatives as discussed in HPI, a complete review of sys tems was performed and all other systems are negative. Past Medical History Past Medical History: No Reported History Additional Past Medical History / Comment(s): patient is had a term vaginal delivery in March 2014, 2016, 2018. History of Any Multi-Drug Resistant Organisms: None Reported Past Surgical History: Cholecystectomy Past Anesthesia/Blood Transfusion Reactions: No Reported Reaction Smoking Status: Never smoker - Past Family History Mother Family Medical History: No Reported History Medications and Allergies Home Medications Medication Instructions Recorded Confirmed Type Phentermine HCl [Adipex-P] 37.5 mg PO DAILY 07/31/18 07/31/18 History Allergies Allergy/AdvReac Type Severity Reaction Status Date / Time Penicillins Allergy Unknown Unknown Verified 08/01/18 00:35 Childhood shellfish derived [Lobster] Allergy Unknown Unknown Verified 08/01/18 00:35 Childhood Physical Exam Vitals: Vital Signs Temp Pulse Pulse Resp BP BP Pulse Ox 08/01/18 00:39 97.2 F L 99 18 136/91 07/31/18 21:51 97.9 F 82 18 154/86 99 Intake and Output 07/31/18 08/01/18 08/01/18 22:59 06:59 14:59 Other: Weight 123.831 kg General: non toxic, no distress, appears at stated age, morbidly obese Derm: no unusual rashes/lesions no unusual ecchymoses, warm, dry Head: atraumatic, normocephalic, symmetric Eyes: EOMI, no lid lag, anicteric sclera, pupils equal round reactive to light ENT: Nose and ears atraumatic, no thrush, no pharyngeal erythema Neck: No thyromegaly, no cervical lymphadenopathy, trachea midline, supple Mouth: no lip lesion, mucus membranes moist Cardiovascular: S1S2 reg, no murmur, positive posterior tibial pulse bilateral, no edema, capillary refill less than 2 seconds Lungs: CTA bilateral, no rhonchi, no rales , no accessory muscle use Abdominal: soft, nontender to palpation, no guarding, no appreciable organomegaly, normal bowel sounds Ext: no gross muscle atrophy, muscle strength 5 out of 5 in all 4 extremities grossly, no contractures, Neuro: CN II-XI grossly intact, light touch intact all 4 extremities, finger to nose within normal limits, Psych: Alert, oriented, appropriate affect Results CBC & Chem 7: 08/01/18 10:53 08/01/18 10:53 Labs: Abnormal Lab Results - Last 24 Hours (Table) 07/31/18 08/01/18 08/01/18 Range/Units 22:10 10:53 10:53 Lymphocytes # 0.8 L (1.0-4.8) k/uL ALT 87 H (9-52) U/L Ur Amphetamines Screen Detected H (NotDetected) Thrombosis Risk Factor Assmnt - Choose All That Apply Any of the Below Risk Factors Present?: No Other Risk Factors: No Other congenital or acquired thrombophilia - If yes, enter type in comment: No Thrombosis Risk Factor Assessment Level: Very Low Risk Assessment and Plan Plan: Depression, suicidal ideation -As per psychiatry Morbid obesity -Patient advised to follow-up as an outpatient with a dietitian -Patient advised on importance of dietary medications Thank you for allowing us to participate in the care of this patient. We will follow peripherally. Do not hesitate to contact us with questions. Someone can be reached from the [facility] hospitalist group at all hours of the day at [phone].
[2018-08-01 18:38] LABS: Hemoglobin A1C 5.1 % (4.0-6.0)
[2018-08-01] MEDS: LORazepam 1 MG TAB PO PRN (19:34)
[2018-08-01] MEDS ORDERED: NALTREXONE HCL 50 MG TAB PO SCH (21:00)
[2018-08-02 06:46] VITALS: BP 125/60; PULSE 81; TEMP 97.8
[2018-08-02] MEDS: buPROPion XL 150 MG TAB.ER.24H PO SCH (08:25)
[2018-08-02] MEDS ORDERED: buPROPion XL 150 MG TAB.ER.24H PO SCH (10:30)
--- NOTE | 2018-08-02 11:25 | P.DS ---
Providers Date of admission: 07/31/18 22:39 Expected date of discharge: 08/02/18 Attending physician: Kyaw Hernandez DO Consults: 07/31/18 22:46 Consult Physician Routine Consulting Provider: Navdeep Mallory Consult Reason/Comments: medical management Do you want consulting provider notified?: Yes Primary care physician: Talha Braun - Discharge Diagnosis(es) (1) Major depressive disorder Allergies Allergy/AdvReac Type Severity Reaction Status Date / Time Penicillins Allergy Unknown Unknown Verified 08/01/18 00:35 Childhood shellfish derived [Lobster] Allergy Unknown Unknown Verified 08/01/18 00:35 Childhood Vital Signs Temp 97.2 F L 08/01/18 00:39 Pulse 99 08/01/18 00:39 Resp 18 08/01/18 00:39 BP 136/91 08/01/18 00:39 Pulse Ox 99 07/31/18 21:51 Intake & Output 07/31/18 08/01/18 08/01/18 18:59 06:59 18:59 Weight 123.831 kg Laboratory Last Values Urine HCG, Qual Not Detected (Not Detectd) 07/31/18 22:10 Urine Opiates Screen Not Detected (NotDetected) 07/31/18 22:10 Ur Oxycodone Screen Not Detected (NotDetected) 07/31/18 22:10 Urine Methadone Screen Not Detected (NotDetected) 07/31/18 22:10 Ur Propoxyphene Screen Not Detected (NotDetected) 07/31/18 22:10 Ur Barbiturates Screen Not Detected (NotDetected) 07/31/18 22:10 U Tricyclic Antidepress Not Detected (NotDetected) 07/31/18 22:10 Ur Phencyclidine Scrn Not Detected (NotDetected) 07/31/18 22:10 Ur Amphetamines Screen Detected (NotDetected) H 07/31/18 22:10 U Methamphetamines Scrn Not Detected (NotDetected) 07/31/18 22:10 U Benzodiazepines Scrn Not Detected (NotDetected) 07/31/18 22:10 Urine Cocaine Screen Not Detected (NotDetected) 07/31/18 22:10 U Marijuana (THC) Screen Not Detected (NotDetected) 07/31/18 22:10 Assessment and Plan Assessment: Torie is a 28-year-old female with a history of anxiety and a history of depression after her second . Patient is currently 2-1/2 months after having her third child, she is currently from her children's father, she recently experienced the loss of her aunt yesterday attended her aunt's . Patient reports she just feels overwhelmed with depression and emotional changes and doesn't feel safe at home. Patient reports she has a great relationship with her children, she states that she's bonding well with her . She states that she enjoys being a mother and she wants to be alive for her children however after going to the listing to the station detective talk about her Ambien christiano she has continuously been thinking about how bad she was that she could be in [facility] so she didn't experience depression and hormonal shifts that she's been experiencing. Pt lives with her who brought her in stating she may have post psychosis. She says she does not feel safe to go home. She just wants to . She cant explain why she feels the way she does or even understand why. She thinks that [facility] would be a yash place to be and she just wants to go there. Her stated that she has not been the same since she had her secon child so close to the first one, Pt was tearful and asked to be admitted - Related Data Home Medications Medication Instructions Recorded Confirmed Phentermine HCl [Adipex-P] 37.5 mg PO DAILY 07/31/18 07/31/18 Allergies Allergy/AdvReac Type Severity Reaction Status Date / Time Penicillins Allergy Unknown Verified 05/18/18 06:09 Childhood shellfish derived [Lobster] Allergy Unknown Verified 07/31/18 22:06 Childhood Past Medical History Past Medical History: No Reported History Additional Past Medical History / Comment(s): patient is had a term vaginal delivery in March 2014, 2016 History of Any Multi-Drug Resistant Organisms: None Reported Past Surgical History: Cholecystectomy Past Anesthesia/Blood Transfusion Reactions: No Reported Reaction Past Psychological History: Depression Smoking Status: Never smoker Past Alcohol Use History: Rare Past Drug Use History: None Reported Musculoskeletal Examination - Abnormal/Involuntary Movements: [none] Strength: [greater than antigravity (greater than/equal to 3/5) in all extremities] Muscle Tone: [no impairment] Gait: [grossly normal Station: [grossly normal] Mental Status Examination - this is a 28-year-old female is 2-1/2 months with depression who lives with her 3 children and a boyfriend who has 2 teenagers. She is frustrated with the living situation became depressed and overwhelmed and wanted to harm or self. She was on phentermine for weight loss which appeared to make her depression worse and increased her anxiety. General Appearance: [ casual, appears stated age Speech/Language: [spontaneous Attitude/Behavior: [cooperative Mood: [ depressed, anxious, Affect: [full range, lively, flat, incongruent, labile, blunted constricted, other] Orientation: [time, person, place situation] Thought Content: [wnl, denies delusions, obsessions, phobias, other] Risk Factors: [Admits suicidal (ideations, plan), denies Homicidal (ideations, plan), other] Perception: [wnl, denies hallucinations (auditory, visual, tactile), other] Thought Processes: [goal-oriented Concentration/Attention Span: [wnl] [Per observation and interview with the patient] Recent Memory: [wnl Remote Memory: [wnl] [past events, as related history] Intelligence: [Average] [based on history, based on vocabulary, syntax, grammar, and content] Judgement: [Fair] [per patient's behavior/history of present illness] Insight: [Good] [understanding severity of illness/history of present illness] Admitting Diagnosis: [Major depressive disorder as result of 2-1/2 months post delivery] Current Visit: Yes Status: Acute Priority: Low (2) Post depression Current Visit: Yes Status: Acute Priority: Low Hospital Course: Plan of Care: [She admitted on a formal voluntary basis for depression and suicidal ideation. She'll be evaluated by medicine, psychiatry, nursing staff, social work and occupational therapy. She will be placed on 15 minute checks for safety while on the psychiatric unit. She will be encouraged to go to [facility] to engage in groups take her medications and be positive in the milieu on the unit. She'll be started on Wellbutrin 150 mg by mouth every morning and ReVia 50 mg for impulsive eating. On 08/02/2017 by increase her Wellbutrin to 300 mg extended release and we'll most likely discharge since she has 3 children at home that need to be taking care of and a part-time job she needs to get back to work. Mental status examination time of discharge 08/02/2018 at 11:24 AM: The patient presents alert, pleasant, and cooperative. There calmly seated without any agitated behavior. [She] reports that [her] mood is good. Affect is congruent and euthymic. [She] deny having any suicidal or homicidal ideation intent or plan. [She] denies any auditory or visual hallucinations. There is no evidence of any delusional thought content. [Her] thought process is linear and goal-directed. [Her] speech is fluent and nonpressured. [Her] memory and concentration is grossly intact for the purposes of this session. ] Patient Condition at Discharge: Stable Plan - Discharge Summary Discharge Rx Participant: Yes New Discharge Prescriptions: New Naltrexone HCl [Revia] 50 mg PO 2100 30 Days #30 tab buPROPion XL [Wellbutrin XL] 150 mg PO DAILY 30 Days #60 tab.er.24h Discontinued Phentermine HCl [Adipex-P] 37.5 mg PO DAILY Discharge Medication List Naltrexone HCl [Revia] 50 mg PO 2100 30 Days #30 tab 08/02/18 [Rx] buPROPion XL [Wellbutrin XL] 150 mg PO DAILY 30 Days #60 tab.er.24h 08/02/18 [Rx] Follow up Appointment(s)/Referral(s): [facility] [Outside] - 08/03/18 2:30 pm (Manisha Hernandez ) Talha Braun MD [Primary Care Provider] - 1-2 days Discharge Disposition: HOME SELF-CARE
== END 2018-08-02 13:17 | disposition home or self-care (01) | DRG 881 ==
LOC: EC 21:35 → 3MHU 22:39
PROVIDERS: ADMIT Psychiatry & Neurology Psychiatry; ATTEND Psychiatry & Neurology Psychiatry
DX: F53.0 Postpartum depression (principal); R45.851 Suicidal ideations; Z68.41 Body mass index [BMI] 40.0-44.9, adult; E66.01 Morbid (severe) obesity due to excess calories; Z79.899 Other long term (current) drug therapy; Z88.0 Allergy status to penicillin; Z91.013 Allergy to seafood; F41.9 Anxiety disorder, unspecified; Z63.4 Disappearance and death of family member; Z63.5 Disruption of family by separation and divorce; Z90.49 Acquired absence of other specified parts of digestive tract
CPT/HCPCS: 80053; 80061; 80306; 81025; 82075; 83036; 84443; 85025; 99285

== ENCOUNTER → 2019-05-24 | Outpatient (CLI) | payer OTHER | END | disposition home or self-care (01) | LOC: LABWHC1 09:07 | PROVIDERS: ATTEND Obstetrics & Gynecology Obstetrics | DX: N92.5 Other specified irregular menstruation (principal) | CPT/HCPCS: 36415; 84702 ==

== ENCOUNTER 2019-12-03 17:30 | Outpatient (CLI) | payer MEDICAID, OTHER ==
[2019-12-03 17:42] VITALS: BP 131/68; PULSE 86; TEMP 98.2
[2019-12-03 18:02] LABS: Appearance,Urine Cloudy (Clear); Bilirubin,Urine Negative (Negative); Blood,Urine Negative (Negative); Color,Urine Yellow; Glucose,Urine (UA) Negative (Negative); Ketones,Urine Trace (Negative); Leukocyte Esterase,Urine Trace (Negative); Mucus,Urine Many /hpf; Nitrite,Urine Negative (Negative); Protein,Urine 1+ (Negative); RBC,Urine 5 /hpf (0-5); Specific Gravity,Urine 1.038 (1.001-1.035); Squamous Epithelial Cell,Urine 10 /hpf (0-4); WBC,Urine 3 /hpf (0-5)
[2019-12-03 18:42] VITALS: RESP 16
--- NOTE | 2019-12-04 09:59 | P.MSEPDOC ---
Presenting Problems - Arrival Data Date of Arrival on Unit: 12/03/19 Time of Arrival on Unit: 17:30 Mode of Transport: Ambulatory - Complaint OB-Reason for Admission/Chief Complaint: Other Comment: pt presents to triage with c/o vaginal pressure since Wednesday, pt reports + fm, denies regular contractions, denies complications with current , denies lof/vb Medical History - Information : 4 Para: 3 Term: 3 : 0 Abortions: Spontaneous or Elective: 0 Number of Living Children: 3 - Gestational Age Gestational Age by NETTE (wks/days): 31 Weeks and 4 Days Review of Systems - Review of Systems Constitutional: No problems Breast: No problems ENT: No problems Cardiovascular: No problems Respiratory: No problems Gastrointestinal: No problems Genitourinary: No problems Musculoskeletal: No problems Neurological: No problems Skin: No problems Vital Signs - Temperature Temperature: 98.2 F Temperature Source: Oral - Pulse Right Brachial Pulse Rate: 86 Pulse Assessment Method: Automatic Cuff - Respirations Respiratory Rate: 16 Oxygen Delivery Method: Room Air - Blood Pressure Right Arm Blood Pressure: 131/68 Blood Pressure Mean: 89 Blood Pressure Source: Automatic Cuff Medical Screen Scoring (Pre) - Cervical Exam Dilation: 0 cm = 0 Membranes: Intact - Uterine Contractions Frequency: N/A Duration: N/A Intensity: N/A - Maternal Vital Signs Maternal Temperature: N/A Maternal Blood Pressure: N/A Signs of Preeclampsia: N/A Maternal Respirations: N/A - Maternal Trauma Maternal Trauma: N/A - Assessment - Baby A Baseline FHR: 130 Heart Rate - NICHD Category: Category I (Normal) = 0 NST: Reactive Position: N/A Station: N/A - Total Score - Baby A Total Score - Baby A: 0 - Total Score - Baby B Total Score - Baby B: 0 - Total Score - Baby C Total Score - Baby C: 0 - Level of Risk - Baby A Level of Risk - Baby A: Low (0-5) - Level of Risk - Baby B Level of Risk - Baby B: Low (0-5) - Level of Risk - Baby C Level of Risk - Baby C: Low (0-5) Physician Notification (Pre) - Physician Notified Physician Notified Date: 12/03/19 Physician Notified Time: 18:27 New Order Received: Yes (dc home) Disposition - Disposition OB Disposition: Discharge to home, Written follow up instructions reviewed Discharge Date: 12/03/19 Discharge Time: 18:38 I agree with the RN Medical Screening Exam: Yes Risk & Benefit of care provided described in d/c instruction: Yes Diagnosis: RELATED CONDITIONS, UNSPECIFIED, THIRD TRIMESTER
== END 2019-12-03 18:38 | disposition home or self-care (01) ==
LOC: FBPOP 17:30
PROVIDERS: ATTEND Obstetrics & Gynecology
DX: O26.93 Pregnancy related conditions, unspecified, third trimester (principal); Z3A.31 31 weeks gestation of pregnancy
CPT/HCPCS: 59025; 81001; 99213

== ENCOUNTER 2020-01-16 20:54 | Outpatient (CLI) | payer OTHER ==
[2020-01-16 22:17] VITALS: BP 117/73; PULSE 93; RESP 16; TEMP 97.6
--- NOTE | 2020-01-18 08:57 | P.MSEPDOC ---
Presenting Problems - Arrival Data Date of Arrival on Unit: 01/16/20 Time of Arrival on Unit: 20:54 Mode of Transport: Ambulatory - Complaint OB-Reason for Admission/Chief Complaint: Pain Comment: right sided muscle pain. Medical History - Information : 6 Para: 3 Term: 3 : 0 Abortions: Spontaneous or Elective: 2 Number of Living Children: 3 - Gestational Age Gestational Age by NETTE (wks/days): 37 Weeks and 6 Days Review of Systems - Review of Systems Constitutional: No problems Breast: No problems ENT: No problems Cardiovascular: No problems Respiratory: No problems Gastrointestinal: No problems Genitourinary: No problems Musculoskeletal: No problems Neurological: No problems Skin: No problems Vital Signs - Temperature Temperature: 97.6 F Temperature Source: Oral - Pulse Right Brachial Pulse Rate: 93 Pulse Assessment Method: Automatic Cuff - Respirations Respiratory Rate: 16 Oxygen Delivery Method: Room Air O2 Sat by Pulse Oximetry: 99 - Blood Pressure Right Arm Blood Pressure: 117/73 Blood Pressure Mean: 87 Blood Pressure Source: Automatic Cuff Medical Screen Scoring (Pre) - Cervical Exam Dilation: Exam Deferred Effacement: Exam Deferred Membranes: Intact - Uterine Contractions Frequency: N/A Duration: N/A Intensity: N/A - Maternal Vital Signs Maternal Temperature: N/A Maternal Blood Pressure: N/A Signs of Preeclampsia: N/A Maternal Respirations: N/A - Maternal Trauma Maternal Trauma: N/A - Assessment - Baby A Baseline FHR: 135 Heart Rate - NICHD Category: Category I (Normal) = 0 NST: Reactive Position: N/A Station: N/A - Total Score - Baby A Total Score - Baby A: 0 - Total Score - Baby B Total Score - Baby B: 0 - Total Score - Baby C Total Score - Baby C: 0 - Level of Risk - Baby A Level of Risk - Baby A: Low (0-5) - Level of Risk - Baby B Level of Risk - Baby B: Low (0-5) - Level of Risk - Baby C Level of Risk - Baby C: Low (0-5) Physician Notification (Pre) - Physician Notified Physician Notified Date: 01/16/20 Physician Notified Time: 21:54 New Order Received: Yes - Notification Comment Comment: Dr. Madrid given report on pt. Pt c/o. VS. WNL. Reactive NST. movement noted per pt and. audibly. No contractions noted per pt or toco. Orders. recieved to d/c pt to home. To educate pt to remain. on pelvic rest until apt on . Disposition - Disposition OB Disposition: Physician follow up in office, Discharge to home Discharge Date: 01/16/20 Discharge Time: 21:54 I agree with the RN Medical Screening Exam: Yes Risk & Benefit of care provided described in d/c instruction: Yes Diagnosis: FALSE LABOR BEFORE 37 COMPLETED WEEKS OF GEST, THIRD TRI
== END 2020-01-16 21:58 | disposition home or self-care (01) ==
LOC: FBPOP 20:54
PROVIDERS: ATTEND Obstetrics & Gynecology
DX: O47.03 False labor before 37 completed weeks of gestation, third trimester (principal); Z3A.37 37 weeks gestation of pregnancy
CPT/HCPCS: 59025; G0463; 99213

== ENCOUNTER 2020-01-23 04:20 | Inpatient (IN) | payer OTHER ==
[2020-01-23] MEDS ORDERED: OXYTOCIN 10 UNIT/ML 1 ML VIAL IM PRN (05:23)
[2020-01-23] MEDS ORDERED: METHYLERGONOVINE 0.2 MG/ML 1 ML AMP IM PRN (05:23)
[2020-01-23] MEDS ORDERED: LIDOCAINE 0.5% (PF) 5 MG/ML (50 ML SDV) SQ PRN (05:23)
[2020-01-23] MEDS ORDERED: TERBUTALINE 1 MG/ML VIAL SQ PRN (05:23)
[2020-01-23] MEDS ORDERED: CARBOPROST TROMETHAMINE 250 MCG/ML 1 ML AMP IM PRN (05:23)
[2020-01-23] MEDS ORDERED: OXYTOCIN 30 UNITS/500 ML NS 30 UNIT in SALINE 1 500ML.BAG IV SCH ×2 (05:30→07:15)
[2020-01-23] MEDS: LACTATED RINGERS 1,000 ML IV SCH ×2 (05:32→09:04)
[2020-01-23 05:34] LABS: Basophils % (A) 0 %; Eosinophils # (A) 0.1 k/uL (0-0.7); Eosinophils % (A) 1 %; HCT 36.5 % (34.0-46.0); HGB 11.5 gm/dL (11.4-16.0); Hypochromasia Slight; Lymphocytes # (A) 2.2 k/uL (1.0-4.8); Lymphocytes % (A) 22 %; MCH 24.9 pg (25.0-35.0); MCHC 31.4 g/dL (31.0-37.0); MCV 79.2 fL (80.0-100.0); Mean Platelet Volume 9.3; Monocytes # (A) 0.3 k/uL (0-1.0); Monocytes % (A) 3 %; Neutrophils # (A) 7.3 k/uL (1.3-7.7); Neutrophils % (A) 72 %; Platelet Count 177 k/uL (150-450); RBC 4.61 m/uL (3.80-5.40); RDW 14.4 % (11.5-15.5); WBC 10.2 k/uL (3.8-10.6)
--- NOTE | 2020-01-23 11:18 | P.HPOB ---
History of Present Illness H&P Date: 01/23/20 Chief Complaint: IUP at 38 6/7 weeks, spontaneous rupture of membranes this is a 29-year-old 6 para 3023 that presents to labor and delivery with complaints of spontaneous rupture of membranes. Patient states she noted a small gush that was green in color and presented to labor and delivery. Patient was noted to be spontaneously ruptured. Patient denied contractions on admission. Patient has been receiving routine care with myself which has been essentially uncomplicated. On blood work she has a blood type of AB+, rubella immune, B surface antigen negative, HIV was refused, group beta strep is negative. Review of Systems Constitutional: Denies chills, Denies fatigue, Denies fever Ears, nose, mouth and throat: Denies headache Cardiovascular: Reports leg edema Respiratory: Denies dyspnea Gastrointestinal: Denies constipation, Denies diarrhea, Denies nausea, Denies vomiting Genitourinary: Reports Past Medical History Past Medical History: No Reported History Additional Past Medical History / Comment(s): patient is had a term vaginal delivery in March 2014, 2016, 2018. History of Any Multi-Drug Resistant Organisms: None Reported Past Surgical History: Cholecystectomy Past Anesthesia/Blood Transfusion Reactions: No Reported Reaction Past Psychological History: No Psychological Hx Reported Smoking Status: Never smoker Past Alcohol Use History: None Reported, Rare Past Drug Use History: None Reported - Past Family History Mother Family Medical History: No Reported History Medications and Allergies Home Medications Medication Instructions Recorded Confirmed Type Aspirin 81 mg PO DAILY 12/03/19 01/23/20 History Cetirizine HCl [Zyrtec] 10 mg PO DAILY 12/03/19 01/23/20 History Pnv No.95/Ferrous Fum/Folic AC 1 each PO DAILY 12/03/19 01/23/20 History [ Multivitamin Tablet] Allergies Allergy/AdvReac Type Severity Reaction Status Date / Time shellfish derived [Lobster] Allergy Unknown Unknown Verified 01/23/20 04:37 Childhood Exam Osteopathic Statement: *. No significant issues noted on an osteopathic structural exam other than those noted in the History and Physical/Consult. Vital Signs Temp Pulse Resp BP Pulse Ox 01/23/20 05:34 97.2 F L 80 16 110/70 01/23/20 05:11 96.8 F L 99 20 134/86 99 Intake and Output 01/22/20 01/23/20 01/23/20 22:59 06:59 14:59 Other: Weight 127.913 kg targeted physical exam is performed on this date. In general this a well- nourished well-developed female in no obvious distress, breathing is noted to be nonlabored, heart has a regular rate and rhythm, abdomen is gravid and appropriate for gestational age, on cervical exam she is 4/70/-2 station membrane was palpated and amniotomy was performed with meconium-stained fluid being noted. heart tones returned be category 1 and she is sebastien every 4 minutes. Results Result Diagrams: 01/23/20 05:20 Abnormal Lab Results - Last 24 Hours (Table) 01/23/20 Range/Units 05:20 MCV 79.2 L (80.0-100.0) fL MCH 24.9 L (25.0-35.0) pg Assessment and Plan (1) SROM (spontaneous rupture of membranes) Current Visit: Yes Status: Acute Code(s): [id number] - SNOMED Code(s): 812379134 (2) Meconium in amniotic fluid Current Visit: Yes Status: Acute Code(s): P96.83 - MECONIUM STAINING SNOMED Code(s): 929853314 (3) Term Current Visit: No Status: Acute Code(s): Z34.80 - ENCOUNTER FOR SUPRVSN OF NORMAL , UNSP TRIMESTER SNOMED Code(s): 64601453 Plan: this 21-year-old 6 para 3023 at 38-6/7 weeks presents to labor and delivery with complaints of spontaneous rupture of membranes. Rupture of membranes is confirmed with amnisure, meconium-stained fluid was noted. Patient is admitted to labor and delivery with an spontaneous vaginal delivery. Patient does desire epidural when appropriate.
[2020-01-23] MEDS ORDERED: LANOLIN CREAM 5 GM TUBE TOPICAL PRN (11:21)
[2020-01-23] MEDS ORDERED: ZOLPIDEM 5 MG TAB PO PRN (11:21)
[2020-01-23] MEDS ORDERED: diphenhydrAMINE 50 MG CAP PO PRN (11:21)
[2020-01-23] MEDS ORDERED: diphenhydrAMINE 25 MG CAP PO PRN (11:21)
[2020-01-23] MEDS ORDERED: diphenhydrAMINE 50 MG/ML 1 ML VIAL IVP PRN ×2 (11:21)
[2020-01-23] MEDS ORDERED: BENZOCAINE/MENTHOL SPRAY 1 GM/SPRAY AEROSOL TOPICAL PRN (11:21)
[2020-01-23] MEDS ORDERED: HYDROCORTISONE 2.5% RECTAL CREAM 30 GM TUBE RECTAL PRN (11:21)
[2020-01-23] MEDS ORDERED: SIMETHICONE 80 MG CHEWABLE PO PRN (11:21)
--- NOTE | 2020-01-23 11:21 | P.PROBDLV ---
Vaginal Delivery Note - . Vaginal Delivery Note: This is a 29-year-old 6 para 3023 she presented with complaints of spontaneous rupture of membranes around 4 AM. Patient was noted to have meconium stained fluid. Patient was admitted to labor and delivery and made a small amount of change. Pitocin augmentation of labor was begun. Patient became uncomfortable and requested epidural placement. Epidural was placed without difficulty by the anesthesia department. Patient was noted to be complete she began pushing and had a normal spontaneous vaginal delivery of a viable female infant at 1105, weight is pending. Thick meconium fluid was noted during delivery. Dr. Silva was available for evaluation of this term infant. The umbilical cords doubly clamped and cut and the was handed off to awaiting nutrition. The placenta was then delivered spontaneously intact with a three-vessel cord being noted the vaginal vault was inspected and no lacerations were noted. Uterus is noted to be firm and below the umbilicus at this time. Estimated blood loss 200 mL for this delivery. The bladder was then drained via red rubber catheter of 200 mL of clear yellow urine at the end of the delivery. All counts were correct 2, after delivery. patient and tolerated delivery well and is resting comfortably.
[2020-01-23] MEDS ORDERED: OXYTOCIN 20 UNITS/1000 ML NS 1,000 ML IV SCH (11:30)
[2020-01-23] MEDS: IBUPROFEN 600 MG TAB PO PRN ×2 (12:47→20:25)
[2020-01-23] MEDS ORDERED: ROPIVACAINE 100 MG, fentaNYL (PF) 200 MCG in SODIUM CHLORIDE 0.9% 76 ML EPIDURAL ONE (13:35)
[2020-01-23] MEDS: ACETAMINOPHEN TAB 325 MG TAB PO PRN ×2 (15:31→21:59)
[2020-01-23] MEDS: SENNOSIDES-DOCUSATE SODIUM 1 EACH TAB PO SCH (20:24)
--- NOTE | 2020-01-24 08:25 | P.DS ---
Providers Date of admission: 01/23/20 05:00 Expected date of discharge: 01/24/20 Attending physician: Rosie Garcia Primary care physician: Stated None - Discharge Diagnosis(es) (1) SROM (spontaneous rupture of membranes) Current Visit: Yes Status: Acute (2) Meconium in amniotic fluid Current Visit: Yes Status: Acute (3) Term Current Visit: No Status: Acute (4) Normal vaginal delivery Current Visit: No Status: Acute Hospital Course: This is a 21-year-old 6 para 3023 that presents to labor and delivery with complaints of spontaneous rupture of membranes around 4 AM. Patient noted the fluid to be meconium stained. Patient was having irregular contractions at that time. Pitocin augmentation of labor was begun. Patient became uncomfortable and requested epidural placement. Epidural was placed without difficulty by the anesthesia department. She was then noted to be complete soon afterwards began pushing and had a normal spontaneous vaginal delivery of a viable female at 1105, weight of 6 lbs. 14 oz. with Apgars of 9 and 9 at one and 5 minutes or sexually. Patient's post course is been uneventful. On day #1 she is ambulating and voiding without difficulty. She is tolerating a regular diet without nausea or vomiting. She states her pain is well-controlled. She denies concerns and would like discharge home. Patient Condition at Discharge: Good Plan - Discharge Summary New Discharge Prescriptions: No Action Aspirin 81 mg PO DAILY Pnv No.95/Ferrous Fum/Folic AC [ Multivitamin Tablet] 1 each PO DAILY Cetirizine HCl [Zyrtec] 10 mg PO DAILY Discharge Medication List Aspirin 81 mg PO DAILY 12/03/19 [History] Cetirizine HCl [Zyrtec] 10 mg PO DAILY 12/03/19 [History] Pnv No.95/Ferrous Fum/Folic AC [ Multivitamin Tablet] 1 each PO DAILY 12/03/19 [History] Follow up Appointment(s)/Referral(s): Rosie Garcia DO [Doctor of Osteopathic Medicine] - 4 Weeks Patient Instructions/Handouts: Vaginal Delivery (DC), Vaginal Delivery (GEN) Activity/Diet/Wound Care/Special Instructions: No tub baths or intercourse until 6 weeks . Patient can expect period Like bleeding for 4-6 weeks after delivery. Patient is to call with any concerns prior to her appointment. Discharge Disposition: HOME SELF-CARE
[2020-01-24] MEDS: SENNOSIDES-DOCUSATE SODIUM 1 EACH TAB PO SCH (08:52)
[2020-01-24] MEDS: IBUPROFEN 600 MG TAB PO PRN (08:52)
[2020-01-24 10:52] VITALS: BP 107/58; PULSE 95; RESP 18; TEMP 97.5
== END 2020-01-24 11:45 | disposition home or self-care (01) | DRG 807 ==
LOC: FBPOP 04:20 → 4FBP 05:00
PROVIDERS: ADMIT Obstetrics & Gynecology; ATTEND Obstetrics & Gynecology Obstetrics
PROC: 3E0R3BZ Introduction of Anesthetic Agent into Spinal Canal, Percutaneous Approach (ICD-10-PCS; principal; 2020-01-23)
PROC: 00HU33Z Insertion of Infusion Device into Spinal Canal, Percutaneous Approach (ICD-10-PCS; principal; 2020-01-23)
PROC: 10E0XZZ Delivery of Products of Conception, External Approach (ICD-10-PCS; principal; 2020-01-23)
DX: O77.0 Labor and delivery complicated by meconium in amniotic fluid (principal); Z37.0 Single live birth; Z3A.38 38 weeks gestation of pregnancy; Z79.82 Long term (current) use of aspirin; Z90.49 Acquired absence of other specified parts of digestive tract; Z91.013 Allergy to seafood
CPT/HCPCS: 59025; 84112; 85025; 86850; 86900; 86901; 99213

== ENCOUNTER → 2021-03-03 | Outpatient (CLI) | payer OTHER ==
[2021-03-03 14:23] VITALS: BP 147/75; PULSE 92; RESP 18; TEMP 98; BMI 43.9
[2021-03-03 15:47] LABS: HCT 38.8 % (34.0-46.0); HGB 13.1 gm/dL (11.4-16.0); MCHC 33.7 g/dL (31.0-37.0); MCV 80.2 fL (80.0-100.0); Mean Platelet Volume 8.2; Platelet Count 298 k/uL (150-450); RBC 4.84 m/uL (3.80-5.40); RDW 14.2 % (11.5-15.5); WBC 15.9 k/uL (3.8-10.6)
--- NOTE | 2021-03-03 16:15 | P.HPBAR ---
Bariatric H&P - History & Physicial H&P Date: 03/03/21 History & Physicial: Visit/CC: initial visit Patient initial contact: Initial weight: 131.088 kg Initial weight in pounds: 289.00 Height: 5 ft 8 in Initial BMI: 43.9 Last weight: Current weight: 131.088 kg Current weight in pounds: 289.00 Current BMI: 43.9 [place] body weight (based on NIH guidelines): 63.503 kg Excess body weight loss: 0.0% The patient is a 30 year-old F who presents for Bariatric Assessment. Patient presents today for presurgical consultation. She is requesting information on sleeve gastrectomy. She's been morbidly obese entire life. Her BMI is 44. Past Medical History Past Medical History: No Reported History Additional Past Medical History / Comment(s): patient is had a term vaginal delivery in March 2014, 2016, 2018. History of Any Multi-Drug Resistant Organisms: None Reported Past Surgical History: Cholecystectomy Past Anesthesia/Blood Transfusion Reactions: No Reported Reaction Past Psychological History: No Psychological Hx Reported Smoking Status: Never smoker Past Alcohol Use History: None Reported, Rare Past Drug Use History: None Reported - Past Family History Mother Family Medical History: No Reported History Surgical - Exam Vital Signs Temp Pulse Resp BP 98.0 F 92 18 147/75 03/03/21 14:19 03/03/21 14:19 03/03/21 14:19 03/03/21 14:19 - General well developed, well nourished, no distress - Eyes PERRL - ENT normal pinna - Neck no masses - Respiratory normal expansion - Cardiovascular Rhythm: regular - Abdomen Abdomen: soft, non tender Results - Labs 03/03/21 15:07 Abnormal Lab Results - Last 24 Hours (Table) 03/03/21 Range/Units 15:07 WBC 15.9 H (3.8-10.6) k/uL Bariatric Assessment & Plan Plan: Morbid obesity. Patient had a lengthy discussion regarding sleeve gastrectomy. She mentions a risk of the procedure. The patient will be scheduled for EGD. She'll follow-up after this is performed. Bariatric Checklist Checklist: Plan: Checklist: EGD: 1. Hiatal hernia: 2. H. Pylori: HgbA1c: Vitamin D: Smoking: Never smoker Primary care physician referral: Kade Psychiatry clearance: Cardiology clearance: Sleep study: Diet journal: VTE risk score: VTE risk level: Rehab needs at discharge:
[2021-03-04 03:08] LABS: ALT 30 U/L (8-44); AST 18 U/L (13-35); African American GFR (CKD) 145.8 (60.0-200.0); Albumin 4.5 g/dL (3.8-4.9); Albumin/Globulin Ratio 1.69 (1.60-3.17); Alkaline Phosphatase 69 U/L (41-126); BUN/Creat Ratio 17.46 Ratio (12.00-20.00); Blood Urea Nitrogen 9.8 mg/dL (9.0-27.0); Calcium 9.1 mg/dL (8.7-10.3); Carbon Dioxide 18.6 mmol/L (20.0-27.5); Chloride 103 mmol/L (96-109); Globulin 2.6 g/dL (1.6-3.3); Glucose 115 mg/dL (70-110); Non-African American GFR(CKD) 125.8 (60.0-200.0); Potassium 3.9 mmol/L (3.5-5.5); Sodium 136 mmol/L (135-145); Total Bilirubin <0.20 mg/dL (0.30-1.20); Total Protein 7.1 g/dL (6.2-8.2)
== END | disposition home or self-care (01) ==
LOC: BARWHC3 13:38
PROVIDERS: ATTEND Surgery
DX: E66.01 Morbid (severe) obesity due to excess calories (principal); E55.9 Vitamin D deficiency, unspecified
CPT/HCPCS: 84425; 80053; 82607; 82746; 85027; 82306; 83036; 93005; 36415; G0463; 99203

== ENCOUNTER 2021-04-28 10:18 | Day surgery (SDC) | payer OTHER ==
[2021-04-23 12:01] VITALS: BMI 43.3
[2021-04-28 10:45] VITALS: RESP 16; TEMP 97.6
[2021-04-28] MEDS: LACTATED RINGERS 1,000 ML IV SCH ×3 (10:45→11:43)
[2021-04-28] MEDS ORDERED: LIDOCAINE 1% (10MG/ML) FOR IV START INTRADERMA ONE (10:45)
[2021-04-28] MEDS ORDERED: PROPOFOL 10 MG/ML 20 ML VIAL IV ONE (11:40)
[2021-04-28] MEDS ORDERED: LIDOCAINE 1% INJ 10MG/ML (20 ML MDV) ONE (11:40)
--- NOTE | 2021-04-28 11:42 | P.GSHP ---
History of Present Illness H&P Date: 04/28/21 Chief Complaint: GERD, morbid obesity This a 21-year-old female who presents today for. Patient's workup for sleeve gastrectomy. Patient is morbidly obese.. Her BMI is 45. Past Medical History Past Medical History: No Reported History Additional Past Medical History / Comment(s): + COVID TEST 04/07/21 History of Any Multi-Drug Resistant Organisms: None Reported Past Surgical History: Cholecystectomy Past Anesthesia/Blood Transfusion Reactions: No Reported Reaction Smoking Status: Never smoker - Past Family History Mother Family Medical History: No Reported History Medications and Allergies Home Medications Medication Instructions Recorded Confirmed Type Cetirizine HCl [Zyrtec] 10 mg PO DAILY 12/03/19 04/23/21 History ALPRAZolam [Xanax] 0.25 mg PO DIRECTED PRN 03/03/21 04/23/21 History Venlafaxine HCl ER [Effexor Xr] 75 mg PO DAILY 03/03/21 04/23/21 History Allergies Allergy/AdvReac Type Severity Reaction Status Date / Time shellfish derived [Lobster] Allergy Unknown Unknown Verified 04/28/21 10:31 Childhood Surgical - Exam Vital Signs Temp Pulse Resp BP Pulse Ox 97.6 F 80 16 155/80 100 04/28/21 10:43 04/28/21 10:43 04/28/21 10:43 04/28/21 10:43 04/28/21 10:43 - General well developed, well nourished, no distress - Eyes PERRL - ENT normal pinna - Neck no masses - Respiratory normal expansion - Cardiovascular Rhythm: regular - Abdomen Abdomen: soft, non tender Assessment and Plan Assessment: GERD, diverticulitis. We'll perform EGD.
--- NOTE | 2021-04-28 11:51 | P.OP ---
Date of Procedure: 04/28/21 Preoperative Diagnosis: GERD Morbid obesity Postoperative Diagnosis: Antral gastritis Morbid obesity Procedure(s) Performed: EGD Anesthesia: MAC Surgeon: Monty Huber Pathology: other (Antrum) Condition: stable Disposition: PACU Description of Procedure: The patient's placed on the endoscopy table in the lateral position. She received IV sedation. Next, the gastroscope placed oropharynx passed in the esophagus into the stomach. Scope was then placed through the pylorus. The first and second portion of the duodenum appeared normal. Scope summer back and the antrum this was mildly inflamed. A biopsies performed. Scope was then retroflexed and the remainder the stomach appeared normal. There was no hiatal hernia. The GE junction was at 40 cm the distal esophagus appeared normal. The proximal esophagus appeared normal. Scope withdrawn for patient.
[2021-04-28 12:09] VITALS: BP 122/71; PULSE 63
== END 2021-04-28 12:22 | disposition home or self-care (01) ==
LOC: ORWHC2ENDO 10:18
PROVIDERS: ATTEND Surgery
DX: K57.92 Diverticulitis of intestine, part unspecified, without perforation or abscess without bleeding (principal); K21.9 Gastro-esophageal reflux disease without esophagitis; K29.70 Gastritis, unspecified, without bleeding; E66.9 Obesity, unspecified
CPT/HCPCS: 43239; 81025; 88305; J2001; J2704

== ENCOUNTER → 2021-05-19 | Outpatient (CLI) | payer OTHER ==
[2021-05-19 15:17] VITALS: BP 146/78; PULSE 91; TEMP 98; BMI 44.8
--- NOTE | 2021-05-20 13:18 | P.HPBAR ---
Bariatric H&P - History & Physicial H&P Date: 05/19/21 History & Physicial: Visit/CC: egd follow up Patient initial contact: Initial weight: 131.088 kg Initial weight in pounds: 289.00 Height: 5 ft 8 in Initial BMI: 43.9 Last weight: Current weight: 133.81 kg Current weight in pounds: 295.00 Current BMI: 44.8 [place] body weight (based on NIH guidelines): 63.503 kg Excess body weight loss: The patient is a 30 year-old F who presents for Bariatric Assessment. Patient presents today for presurgical consent. She is morbidly obese. Her BMI is 45. She's had a weight gain since her last visit. Past Medical History Past Medical History: No Reported History Additional Past Medical History / Comment(s): + COVID TEST 04/07/21 History of Any Multi-Drug Resistant Organisms: None Reported Past Surgical History: Cholecystectomy Past Anesthesia/Blood Transfusion Reactions: No Reported Reaction Past Psychological History: No Psychological Hx Reported Smoking Status: Never smoker Past Alcohol Use History: Occasional Past Drug Use History: None Reported - Past Family History Mother Family Medical History: No Reported History Surgical - Exam Vital Signs Temp Pulse BP 98 F 91 146/78 05/19/21 15:15 05/19/21 15:15 05/19/21 15:15 - General well developed, well nourished, no distress - Eyes PERRL, normal ocular movement - ENT normal pinna - Neck no masses - Respiratory normal expansion - Cardiovascular Rhythm: regular - Abdomen Abdomen: soft, non tender, no guarding, no rigid, no rebound Bariatric Assessment & Plan Plan: Morbid obesity, BMI 45. Patient will attempt a diet before surgery. She'll follow-up in approximately one month. Bariatric Checklist Checklist: Plan: Checklist: EGD: 1. Hiatal hernia: 2. H. Pylori: HgbA1c: Vitamin D: Smoking: Never smoker Primary care physician referral: Kade Psychiatry clearance: Cardiology clearance: Sleep study: Diet journal: VTE risk score: VTE risk level: Rehab needs at discharge:
== END | disposition home or self-care (01) ==
LOC: BARWHC3 13:55
PROVIDERS: ATTEND Surgery
DX: E66.01 Morbid (severe) obesity due to excess calories (principal); Z68.42 Body mass index [BMI] 45.0-49.9, adult
CPT/HCPCS: 99211

== ENCOUNTER → 2021-07-07 | Outpatient (CLI) | payer OTHER ==
[2021-07-07 14:58] VITALS: BP 126/87; PULSE 90; RESP 16; TEMP 98; BMI 45.1
--- NOTE | 2021-10-03 11:07 | P.HPBAR ---
Bariatric H&P - History & Physicial H&P Date: 07/07/21 History & Physicial: Visit/CC: pre-surgical Patient initial contact: Initial weight: 131.088 kg Initial weight in pounds: 289.00 Height: 5 ft 8 in Initial BMI: 43.9 Last weight: Current weight: 134.535 kg Current weight in pounds: 296.60 Current BMI: 45.1 [place] body weight (based on NIH guidelines): 63.503 kg Excess body weight loss: The patient is a 31 year-old F who presents for Bariatric Assessment. Patient presents today for presurgical consultation. Patient's morbid obese. Her BMI is 45 Past Medical History Past Medical History: No Reported History Additional Past Medical History / Comment(s): + COVID TEST 04/07/21 History of Any Multi-Drug Resistant Organisms: None Reported Past Surgical History: Cholecystectomy Past Anesthesia/Blood Transfusion Reactions: No Reported Reaction Past Psychological History: No Psychological Hx Reported Smoking Status: Never smoker Past Alcohol Use History: Occasional Past Drug Use History: None Reported - Past Family History Mother Family Medical History: No Reported History Surgical - Exam Vital Signs Temp Pulse Resp BP 98.0 F 90 16 126/87 07/07/21 14:55 07/07/21 14:55 07/07/21 14:55 07/07/21 14:55 - General well developed, well nourished, no distress - Eyes PERRL - ENT normal pinna - Neck no masses - Respiratory normal expansion - Cardiovascular Rhythm: regular - Abdomen Abdomen: soft, non tender Bariatric Assessment & Plan Plan: Morbid obesity, BMI 45. Patient will follow-up in one month. Bariatric Checklist Checklist: Plan: Checklist: EGD: 1. Hiatal hernia: 2. H. Pylori: HgbA1c: Vitamin D: Smoking: Never smoker Primary care physician referral: Kade Psychiatry clearance: Cardiology clearance: Sleep study: Diet journal: VTE risk score: VTE risk level: Rehab needs at discharge:
== END | disposition home or self-care (01) ==
LOC: BARWHC3 14:29
PROVIDERS: ATTEND Surgery
DX: Z48.815 Encounter for surgical aftercare following surgery on the digestive system (principal)
CPT/HCPCS: 99211

== ENCOUNTER 2022-03-08 02:41 | Emergency (ER) | payer OTHER ==
[2022-03-08 02:47] VITALS: RESP 16
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
[2022-03-08 03:35] LABS: Basophils % (A) 1 %; Eosinophils % (A) 0 %; HCT 42.4 % (34.0-46.0); HGB 14.2 gm/dL (11.4-16.0); Lymphocytes % (A) 30 %; MCH 27.3 pg (25.0-35.0); MCHC 33.4 g/dL (31.0-37.0); MCV 81.7 fL (80.0-100.0); Mean Platelet Volume 8.7; Monocytes # (A) 0.2 k/uL (0-1.0); Monocytes % (A) 3 %; Neutrophils # (A) 4.2 k/uL (1.3-7.7); Neutrophils % (A) 64 %; Platelet Count 229 k/uL (150-450); RBC 5.19 m/uL (3.80-5.40); RDW 13.5 % (11.5-15.5); WBC 6.6 k/uL (3.8-10.6)
[2022-03-08 03:37] LABS: ALT 44 U/L (4-34); AST 37 U/L (14-36); African American GFR (CKD) >90 (>60 ml/min/1.73 sqM); Albumin 4.9 g/dL (3.5-5.0); Alkaline Phosphatase 62 U/L (38-126); Anion Gap 8 mmol/L; Blood Urea Nitrogen 6 mg/dL (7-17); Calcium 9.3 mg/dL (8.4-10.2); Carbon Dioxide 27 mmol/L (22-30); Chloride 107 mmol/L (98-107); Glucose 108 mg/dL (74-99); Non-African American GFR(CKD) >90 (>60 ml/min/1.73 sqM); Potassium 4.5 mmol/L (3.5-5.1); Sodium 142 mmol/L (137-145); Total Bilirubin 0.2 mg/dL (0.2-1.3); Total Protein 8.3 g/dL (6.3-8.2)
[2022-03-08 04:06] LABS: Alcohol 173 mg/dL
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
[2022-03-08 04:30] VITALS: BP 124/75; PULSE 78; TEMP 98.6
== END 2022-03-08 04:25 | disposition home or self-care (01) ==
LOC: EC 02:41
DX: S06.0X1A Concussion with loss of consciousness of 30 minutes or less, initial encounter (principal); S00.03XA Contusion of scalp, initial encounter; F10.129 Alcohol abuse with intoxication, unspecified; Z86.16 Personal history of COVID-19; Z91.013 Allergy to seafood; Y04.2XXA Assault by strike against or bumped into by another person, initial encounter
CPT/HCPCS: 36415; 93005; 80053; 85025; 72125; 70450; 99284; G0480; 80320

== ENCOUNTER → 2022-06-15 | Outpatient (CLI) | payer BC ==
[2022-06-15 10:37] VITALS: BMI 43.7
== END ==
LOC: BARWHC3 08:36
PROVIDERS: ATTEND Surgery Plastic and Reconstructive Surgery
DX: E66.01 Morbid (severe) obesity due to excess calories (principal); Z71.3 Dietary counseling and surveillance; Z68.41 Body mass index [BMI] 40.0-44.9, adult; Z91.013 Allergy to seafood
CPT/HCPCS: 97804

== ENCOUNTER → 2022-07-06 | Outpatient (CLI) | payer BC ==
[2022-07-06 14:10] VITALS: BP 134/78; PULSE 80; TEMP 98.3; BMI 43.3
--- NOTE | 2022-07-06 14:22 | P.HPBAR ---
Bariatric H&P - History & Physicial H&P Date: 07/06/22 History & Physicial: Visit/CC: pre-surgical Patient initial contact: Initial weight: 131.088 kg Initial weight in pounds: 289.00 Height: 5 ft 8 in Initial BMI: 43.9 Last weight: Current weight: 129.274 kg Current weight in pounds: 285.00 Current BMI: 43.3 [place] body weight (based on NIH guidelines): 63.503 kg Excess body weight loss: 2.6% The patient is a 32 year-old F who presents for Bariatric Assessment.patient resents today for bariatric follow-up. She is scheduled for sleeve gastrectomy next week. Patient's morbidly obese. She has a BMI of 44. Patient is an excellent understanding of sleeve gastrectomy. All her questions have been answered in the office. Past Medical History Past Medical History: No Reported History Additional Past Medical History / Comment(s): + COVID TEST 04/07/21 History of Any Multi-Drug Resistant Organisms: None Reported Past Surgical History: Cholecystectomy Past Anesthesia/Blood Transfusion Reactions: No Reported Reaction Past Psychological History: No Psychological Hx Reported Smoking Status: Never smoker Past Alcohol Use History: Occasional Past Drug Use History: None Reported - Past Family History Mother Family Medical History: No Reported History Surgical - Exam Vital Signs Temp Pulse BP 98.3 F 80 134/78 07/06/22 14:05 07/06/22 14:05 07/06/22 14:05 - General well developed, well nourished, no distress - Eyes PERRL - ENT normal pinna - Respiratory normal expansion - Cardiovascular Rhythm: regular - Abdomen Abdomen: soft, non tender Bariatric Assessment & Plan Plan: morbid obesity. Patient will be scheduled for sleeve gastrectomy next week. Bariatric Checklist Checklist: Plan: Checklist: EGD: 1. Hiatal hernia: 2. H. Pylori: HgbA1c: Vitamin D: Smoking: Never smoker Primary care physician referral: Kaed Psychiatry clearance: Cardiology clearance: Sleep study: Diet journal: VTE risk score: VTE risk level: Rehab needs at discharge:
== END ==
LOC: BARWHC3 13:49
PROVIDERS: ATTEND Surgery
DX: E66.01 Morbid (severe) obesity due to excess calories (principal); Z98.84 Bariatric surgery status; U07.1 COVID-19; Z91.013 Allergy to seafood
CPT/HCPCS: 99211

== ENCOUNTER → 2022-07-08 | Outpatient (CLI) | payer BC ==
[2022-07-08 15:27] LABS: Basophils # (A) 0.05 X 10*3/uL (0.00-0.10); Basophils % (A) 0.7 %; Eosinophils # (A) 0.13 X 10*3/uL (0.04-0.35); Eosinophils % (A) 1.9 %; HCT 38.5 % (37.2-46.3); HGB 12.4 g/dL (12.0-15.0); Immature Grans, Automated 0.1 %; Lymphocytes # (A) 2.66 X 10*3/uL (0.90-5.00); Lymphocytes % (A) 39.9 %; MCH 26.2 pg (27.0-32.0); MCHC 32.2 g/dL (32.0-37.0); MCV 81.4 fL (80.0-97.0); Mean Platelet Volume 11.3 fL (9.5-12.2); Monocytes # (A) 0.38 X 10*3/uL (0.20-1.00); Monocytes % (A) 5.7 %; NRBC Per 100 WBC 0 /100 WBCS (0.0-0.0); Neutrophils # (A) 3.44 X 10*3/uL (1.80-7.70); Neutrophils % (A) 51.7 %; Platelet Count 226 X 10*3/uL (140-440); RBC 4.73 X 10*6/uL (4.10-5.20); WBC 6.67 X 10*3/uL (4.50-10.00)
[2022-07-08 16:56] LABS: African American GFR (CKD) 140.8 (60.0-200.0); Albumin 4.4 g/dL (3.8-4.9); Albumin/Globulin Ratio 1.76 (1.60-3.17); Anion Gap 11.4 mmol/L (10.00-18.00); Blood Urea Nitrogen 10.8 mg/dL (9.0-27.0); Calcium 9.3 mg/dL (8.7-10.3); Carbon Dioxide 23.6 mmol/L (20.0-27.5); Globulin 2.5 g/dL (1.6-3.3); Non-African American GFR(CKD) 121.5 (60.0-200.0); Potassium 4.3 mmol/L (3.5-5.5); Total Bilirubin 0.2 mg/dL (0.30-1.20); Total Protein 6.9 g/dL (6.2-8.2)
== END | disposition home or self-care (01) ==
LOC: LABPAT 08:58
PROVIDERS: ATTEND Surgery
DX: Z01.812 Encounter for preprocedural laboratory examination (principal)
CPT/HCPCS: 80053; 85025; 93005

== ENCOUNTER 2022-07-13 08:01 | Observation (INO) | payer BC ==
[~2022-07-13 08:01] MED LIST: DEXAMETHASONE SOD PHOSPHATE 4 MG/ML 1 ML VIAL IV ONE; ENOXAPARIN 40 MG/0.4 ML SYRINGE SQ PRN; HYDROmorphone 0.5 MG/0.5 ML SYRINGE IVP PRN; MIDAZOLAM 2 MG/2 ML VIAL IV PRN; ONDANSETRON 4 MG/2 ML VIAL IVP ONE; SCOPOLAMINE 1 MG/72 HR PATCH TRANSDERM ONE; ceFAZolin 3 GM in SODIUM CHLORIDE 0.9% 100 ML IVPB PRN
[2022-07-13] MEDS: LACTATED RINGERS 1,000 ML IV SCH (08:30)
[2022-07-13] MEDS ORDERED: ONDANSETRON 4 MG/2 ML VIAL IVP ONE (08:35)
[2022-07-13] MEDS ORDERED: DEXAMETHASONE SOD PHOSPHATE 4 MG/ML 1 ML VIAL IVP ONE (08:36)
[2022-07-13] MEDS ORDERED: BUPIVACAIN-EPI 0.25%-1:200,000 30 ML VIAL SQ ONE ×2 (10:02→10:41)
--- NOTE | 2022-07-13 10:03 | P.GSHP ---
History of Present Illness H&P Date: 07/13/22 Chief Complaint: Morbid obesity This a 32-year-old female with history of morbid obesity. Patient's BMI is 43. Patient is a lifetime problems obesity. Patient presents today for laparoscopic sleeve gastrectomy. Patient's aware the risks of surgery including possible conversion to the open procedure and injury to the stomach liver spleen patient gastric staple line such as bleeding scarring and perforation. Past Medical History Past Medical History: GERD/Reflux Additional Past Medical History / Comment(s): + COVID TEST 04/07/21, ALLERGIES History of Any Multi-Drug Resistant Organisms: None Reported Past Surgical History: Cholecystectomy Past Anesthesia/Blood Transfusion Reactions: No Reported Reaction Additional Past Anesthesia/Blood Transfusion Reaction / Comment(s): Pt has never had a blood transfusion. Smoking Status: Never smoker - Past Family History Mother Family Medical History: No Reported History Medications and Allergies Home Medications Medication Instructions Recorded Confirmed Type Cetirizine HCl [Zyrtec] 10 mg PO DAILY PRN 12/03/19 07/09/22 History ALPRAZolam [Xanax] 0.25 mg PO DIRECTED PRN 03/03/21 07/09/22 History Venlafaxine HCl ER [Effexor Xr] 150 mg PO HS 03/03/21 07/09/22 History Fexofenadine/Pseudoephedrine 1 tab PO DAILY PRN 07/07/21 07/09/22 History [Kisha-D 24 Hour Tablet] Citalopram Hydrobromide [CeleXA] 10 mg PO HS 07/06/22 07/09/22 History Allergies Allergy/AdvReac Type Severity Reaction Status Date / Time shellfish derived [Lobster] Allergy Unknown Unknown Verified 07/13/22 08:30 Childhood Surgical - Exam Vital Signs Temp Pulse Resp BP Pulse Ox 98.5 F 77 16 121/67 100 07/13/22 08:28 07/13/22 08:28 07/13/22 08:28 07/13/22 08:28 07/13/22 08:28 - General well developed, well nourished, no distress - Eyes PERRL - ENT normal pinna - Neck no masses - Respiratory normal expansion - Cardiovascular Rhythm: regular - Abdomen Abdomen: soft, non tender Assessment and Plan Assessment: Morbid obesity, BMI 43. Patient was scheduled for laparoscopic sleeve gastrectomy.
[2022-07-13] MEDS ORDERED: ROCURONIUM 10 MG/ML (5 ML VIAL) IV ONE (10:10)
[2022-07-13] MEDS ORDERED: HYDROmorphone (PF) 1 MG/ML ONE (10:10)
[2022-07-13] MEDS ORDERED: fentaNYL (PF) 50 MCG/ML 2 ML AMP ONE (10:10)
[2022-07-13] MEDS ORDERED: PROPOFOL 10 MG/ML 20 ML VIAL IV ONE (10:10)
[2022-07-13] MEDS ORDERED: KETAMINE 10 MG/ML 20 ML VIAL ONE (10:10)
[2022-07-13] MEDS ORDERED: GLYCOPYRROLATE 0.2 MG/ML 2 ML VIAL ONE (10:10)
[2022-07-13] MEDS ORDERED: MIDAZOLAM 2 MG/2 ML VIAL ONE (10:10)
[2022-07-13] MEDS ORDERED: LIDOCAINE 2% INJ 20 MG/ML (2 ML VIAL) ONE (10:10)
[2022-07-13] MEDS ORDERED: KETOROLAC 15 MG/ML 1 ML VIAL ONE (10:10)
[2022-07-13] MEDS ORDERED: SUCCINYLCHOLINE CHLORIDE 200 MG/10 ML VIAL IV ONE (10:10)
[2022-07-13] MEDS ORDERED: NEOSTIGMINE 1 MG/ML 10 ML VIAL ONE (10:10)
[2022-07-13] MEDS ORDERED: SODIUM CHLORIDE 0.9% 100 ML with ceFAZolin 3,000 MG IV ONE ×2 (10:28)
--- NOTE | 2022-07-13 11:33 | P.OP ---
Date of Procedure: 07/13/22 Preoperative Diagnosis: Morbid obesity, BMI 43 Postoperative Diagnosis: Morbid obesity, BMI 43 Procedure(s) Performed: Laparoscopic sleeve gastrectomy Anesthesia: KAMALJIT Surgeon: Monty Huber Estimated Blood Loss (ml): 5 Pathology: none sent Condition: stable Disposition: PACU Description of Procedure: The patient was placed on the operating room table in the supine position. She received general anesthesia and then was placed in dorsal lithotomy position. Her abdomen was prepped and draped in sterile fashion. The skin incision sites were anesthetized 1% local Xylocaine. And then the skin was incised with an 11 blade in the left lateral position. Using a blade less trocar under direct visualization the peritoneal cavity was entered. The abdomen was insufflated and then a 5 mm laparoscope was placed into the peritoneal cavity. A 5 mm trocar was placed in the right epigastric, and right lateral position. A 15 mm trocar was placed in the supra-umbilical position and another 5 mm trocar was placed in the left lateral position. The left lateral lobe of the liver was retracted. The stomach was visualized. The greater curvature of the stomach was then dissected using the Harmonic scissors. The dissection occurred approximately 5 cm from the pylorus to the level of the left monica. There was no hiatal hernia seen. At this point a 40-Tajik bougie dilator was placed the oropharynx and passed into the esophagus and into the stomach by the CLEANER ASSISTANT. The sleeve gastrectomy was performed by using the powered echelon stapler with a seam guard buttress material. Sequential firings of the stapler were performed. The gastric remnant was then brought out through the 15 mm trocar site. The dilator was withdrawn. And a orogastric tube was replaced into the stomach. The stomach was insufflated with 200 mL of methylene blue normal saline. There was no evidence of extravasation. The abdomen was irrigated there is no bleeding seen. The Boubacar-Alexa device was used to close the 15 mm trocar with 0 Vicryl. Skin was closed with interrupted 3-0 Monocryl sutures once the trochars withdrawn. Dermabond dressing was applied. Patient was sent to recovery in stable condition.
[2022-07-13] MEDS ORDERED: diphenhydrAMINE 50 MG/ML 1 ML VIAL IVP PRN (12:09)
[2022-07-13] MEDS ORDERED: NALOXONE 0.4 MG/ML 1 ML VIAL IV PRN (12:09)
[2022-07-13] MEDS ORDERED: SIMETHICONE 40 MG/0.6 ML DROPS 2,000 MG/30 ML BOTTLE PO PRN (12:09)
[2022-07-13] MEDS ORDERED: HYOSCYAMINE ORAL DROPS 1.875 MG/15 ML BOTTLE PO PRN (12:09)
[2022-07-13] MEDS ORDERED: HYDROcodone/APAP 15 ML SOLUTION PO PRN (12:09)
[2022-07-13] MEDS: ALBUTEROL NEBULIZED 2.5 MG/3 ML INHALATION SCH ×2 (17:47→21:26)
[2022-07-13] MEDS: 0.9% NACL WITH KCL 20 MEQ/L 1,000 ML IV SCH (18:03)
[2022-07-13] MEDS: HYDROmorphone 1 MG/ML 1 ML SYRINGE IVP PRN (18:16)
[2022-07-13] MEDS: ceFAZolin 3 GM in SODIUM CHLORIDE 0.9% 100 ML IVPB SCH (18:18)
[2022-07-13] MEDS: KETOROLAC 15 MG/ML 1 ML VIAL IVP SCH ×2 (18:45→23:10)
[2022-07-13] MEDS: SIMETHICONE 40 MG/0.6 ML DROPS 2,000 MG/30 ML BOTTLE PO PRN (20:32)
[2022-07-14] MEDS: 0.9% NACL WITH KCL 20 MEQ/L 1,000 ML IV SCH ×2 (00:27→11:31)
[2022-07-14] MEDS: SIMETHICONE 40 MG/0.6 ML DROPS 2,000 MG/30 ML BOTTLE PO PRN ×3 (02:36→14:57)
[2022-07-14] MEDS: ceFAZolin 3 GM in SODIUM CHLORIDE 0.9% 100 ML IVPB SCH (02:36)
[2022-07-14] MEDS: HYDROmorphone 0.5 MG/0.5 ML SYRINGE IVP PRN ×2 (02:42→04:01)
[2022-07-14] MEDS: KETOROLAC 15 MG/ML 1 ML VIAL IVP SCH ×2 (06:42→11:35)
[2022-07-14] MEDS ORDERED: 1: THIAMINE 100 MG, FOLIC ACID 1 MG in 0.9% NACL WITH KCL 20 MEQ/L 1,000 ML 2: 0.9% NAC IVP SCH (08:00)
[2022-07-14 08:11] LABS: Basophils % (A) 0 %; Eosinophils % (A) 0 %; HCT 35.3 % (34.0-46.0); HGB 11.6 gm/dL (11.4-16.0); Lymphocytes # (A) 2.1 k/uL (1.0-4.8); Lymphocytes % (A) 24 %; MCH 26.7 pg (25.0-35.0); MCHC 32.9 g/dL (31.0-37.0); MCV 81.1 fL (80.0-100.0); Mean Platelet Volume 8.4; Monocytes # (A) 0.4 k/uL (0-1.0); Monocytes % (A) 5 %; Neutrophils # (A) 5.9 k/uL (1.3-7.7); Neutrophils % (A) 69 %; Platelet Count 192 k/uL (150-450); RBC 4.36 m/uL (3.80-5.40); RDW 14.1 % (11.5-15.5); WBC 8.5 k/uL (3.8-10.6)
[2022-07-14 08:29] LABS: African American GFR (CKD) >90 (>60 ml/min/1.73 sqM); Anion Gap 3 mmol/L; Blood Urea Nitrogen 6 mg/dL (7-17); Calcium 8.1 mg/dL (8.4-10.2); Carbon Dioxide 27 mmol/L (22-30); Chloride 107 mmol/L (98-107); Magnesium 2.1 mg/dL (1.6-2.3); Non-African American GFR(CKD) >90 (>60 ml/min/1.73 sqM); Phosphorus 2.2 mg/dL (2.5-4.5); Potassium 3.9 mmol/L (3.5-5.1); Sodium 137 mmol/L (137-145)
[2022-07-14] MEDS: ALBUTEROL NEBULIZED 2.5 MG/3 ML INHALATION SCH ×3 (08:35→16:33)
[2022-07-14] MEDS ORDERED: ENOXAPARIN 40 MG/0.4 ML SYRINGE SQ SCH (09:00)
[2022-07-14] MEDS ORDERED: PANTOPRAZOLE 40 MG/10 ML VIAL IV SCH (09:00)
[2022-07-14] MEDS: HYDROmorphone 1 MG/ML 1 ML SYRINGE IVP PRN (09:02)
[2022-07-14 12:12] VITALS: BMI 42.5
[2022-07-14] MEDS: LACTATED RINGERS 1,000 ML IV SCH (12:43)
[2022-07-14 13:14] VITALS: BP 130/79; RESP 13; TEMP 98.5
[2022-07-14 13:18] VITALS: PULSE 88
--- NOTE | 2022-07-14 14:37 | P.DS ---
Providers Date of admission: 07/13/22 12:36 Expected date of discharge: 07/14/22 Attending physician: Monty Huber Primary care physician: Talha Braun Hospital Course: Discharge diagnosis 1. Morbid obesity status post laparoscopic sleeve gastrectomy Hospital course This is a 32-year-old female known history of morbid obesity. She is status post laparoscopic sleeve gastrectomy. She tolerated surgery well. Her pain is controlled. She is tolerating diet. She's afebrile. She's had been up and ambulating. She has had flatus. She is stable for discharge. Please refer to chart for any further details. Physician Yard Assistant note has been reviewed by physician. Signing provider agrees with the documented findings, assessment, and plan of care. Patient Condition at Discharge: Stable Plan - Discharge Summary Discharge Rx Participant: Yes New Discharge Prescriptions: New bisacodyL [Dulcolax] 5 mg PO DAILY PRN #10 tab PRN Reason: Constipation Simethicone 40 mg/0.6 ml Drops [Mylicon Drops] 40 mg PO PCHS PRN #30 ml PRN Reason: Gas Omeprazole [PriLOSEC] 40 mg PO DAILY #30 cap Ondansetron Odt [Zofran Odt] 4 mg PO Q8HR PRN #9 tab PRN Reason: Nausea HYDROcodone/APAP 5-325MG [[place] 5-325] 1 tab PO Q6HR PRN 2 Days #5 tab PRN Reason: Pain Continue Cetirizine HCl [Zyrtec] 10 mg PO DAILY PRN PRN Reason: Allergy Symptoms Venlafaxine HCl ER [Effexor XR] 150 mg PO HS Citalopram Hydrobromide [CeleXA] 10 mg PO HS ALPRAZolam [Xanax] 0.25 mg PO DIRECTED PRN PRN Reason: Anxiety Fexofenadine/Pseudoephedrine [Kisha-D 24 Hour Tablet] 1 tab PO DAILY PRN PRN Reason: Anxiety Discharge Medication List Cetirizine HCl [Zyrtec] 10 mg PO DAILY PRN 12/03/19 [History] ALPRAZolam [Xanax] 0.25 mg PO DIRECTED PRN 03/03/21 [History] Venlafaxine HCl ER [Effexor XR] 150 mg PO HS 03/03/21 [History] Fexofenadine/Pseudoephedrine [Kisha-D 24 Hour Tablet] 1 tab PO DAILY PRN 07/07/21 [History] Citalopram Hydrobromide [CeleXA] 10 mg PO HS 07/06/22 [History] HYDROcodone/APAP 5-325MG [[place] 5-325] 1 tab PO Q6HR PRN 2 Days #5 tab 07/14/22 [Rx] Omeprazole [PriLOSEC] 40 mg PO DAILY #30 cap 07/14/22 [Rx] Ondansetron Odt [Zofran Odt] 4 mg PO Q8HR PRN #9 tab 07/14/22 [Rx] Simethicone 40 mg/0.6 ml Drops [Mylicon Drops] 40 mg PO PCHS PRN #30 ml 07/14/22 [Rx] bisacodyL [Dulcolax] 5 mg PO DAILY PRN #10 tab 07/14/22 [Rx] [place]Ref[place] 1 Week Activity/Diet/Wound Care/Special Instructions: No driving while taking [place] No lifting over 10 pounds Shower daily. No soaking or tub baths for 2 weeks Very light activity until you are reevaluated at your follow up appointment with your surgeon No straws or carbonated beverages Discharge Disposition: HOME SELF-CARE
== END 2022-07-14 16:38 | disposition home or self-care (01) ==
LOC: OR 08:01 → 4SSUR 11:38 → OR 12:36 → 4SSUR 12:36
PROVIDERS: ADMIT Surgery; ATTEND Surgery
DX: E66.01 Morbid (severe) obesity due to excess calories (principal); Z68.41 Body mass index [BMI] 40.0-44.9, adult; K21.9 Gastro-esophageal reflux disease without esophagitis; Z86.16 Personal history of COVID-19; Z90.49 Acquired absence of other specified parts of digestive tract; Z79.899 Other long term (current) drug therapy; Z91.013 Allergy to seafood
CPT/HCPCS: 94640 ×3; 94760 ×2; 94762; 97161; 97165; 81025; 80051; 82310; 82565; 83735; 84100; 84520; 85025; 88307; 43775; G0378; J2250; J0330; J1100; J2710; J3411; J0690 ×3; J2405; J1650 ×2; J3010; J1170 ×4; J1885 ×2; J2704; C9113; J1790; J2001

== ENCOUNTER → 2022-07-17 | Outpatient (CLI) | payer BC ==
[2022-07-17 11:30] VITALS: BP 118/82; PULSE 63; RESP 16; TEMP 97.9
[2022-07-17] MEDS: SODIUM CHLORIDE 0.9% 1,000 ML IV SCH ×2 (11:30→12:25)
== END ==
LOC: PROCWHC3 11:23
PROVIDERS: ATTEND Surgery
DX: E86.0 Dehydration (principal); Z91.013 Allergy to seafood
CPT/HCPCS: 96360; 96361

== ENCOUNTER → 2022-07-17 | Outpatient (CLI) | payer BC ==
[2022-07-17 11:37] VITALS: BP 124/83; PULSE 78; RESP 12; TEMP 98.3; BMI 41.6
== END ==
LOC: BARWHC3 10:23
PROVIDERS: ATTEND Surgery
DX: E66.01 Morbid (severe) obesity due to excess calories (principal); Z91.013 Allergy to seafood
CPT/HCPCS: 99211

== ENCOUNTER → 2022-07-20 | Outpatient (CLI) | payer BC ==
[2022-07-20 13:23] VITALS: BP 119/76; PULSE 75; TEMP 97.7; BMI 41.5
--- NOTE | 2022-09-01 09:14 | P.HPBAR ---
Bariatric H&P - History & Physicial H&P Date: 07/20/22 History & Physicial: Visit/CC: 1 week sleeve F/U Patient initial contact: Initial weight: 131.088 kg Initial weight in pounds: 289.00 Height: 5 ft 8 in Initial BMI: 43.9 Last weight: Current weight: 123.831 kg Current weight in pounds: 273.00 Current BMI: 41.5 [place] body weight (based on NIH guidelines): 63.503 kg Excess body weight loss: 10.7% The patient is a 32 year-old F who presents for Bariatric Assessment. Patient's postop sleeve gastrectomy. She's doing quite well. She's had minimal complaints of pain. She is tolerating her diet. Past Medical History Past Medical History: No Reported History Additional Past Medical History / Comment(s): + COVID TEST 04/07/21 History of Any Multi-Drug Resistant Organisms: None Reported Past Surgical History: Bariatric Surgery, Cholecystectomy Additional Past Surgical History / Comment(s): gastric sleeve 07/13/22 Past Anesthesia/Blood Transfusion Reactions: No Reported Reaction Additional Past Anesthesia/Blood Transfusion Reaction / Comm: Pt has never had a blood transfusion. Past Psychological History: No Psychological Hx Reported Additional Psychological History / Comment(s): Pt resides with spouse and children. Smoking Status: Never smoker Past Alcohol Use History: Occasional Past Drug Use History: None Reported - Past Family History Mother Family Medical History: No Reported History Surgical - Exam Vital Signs Temp Pulse BP 97.7 F 75 119/76 07/20/22 13:19 07/20/22 13:19 07/20/22 13:19 - General well developed, well nourished, no distress - Eyes PERRL - ENT normal pinna - Neck no masses - Respiratory normal expansion - Cardiovascular Rhythm: regular - Abdomen Incisions are clean dry intact Abdomen: soft, non tender Bariatric Assessment & Plan Plan: Status post sleeve gastrectomy. Patient's temperature follow-up in 2 weeks. Bariatric Checklist Checklist: Plan: Checklist: EGD: 1. Hiatal hernia: 2. H. Pylori: HgbA1c: Vitamin D: Smoking: Never smoker Primary care physician referral: DR. MATIAS Psychiatry clearance: Cardiology clearance: Sleep study: Diet journal: VTE risk score: VTE risk level: Rehab needs at discharge:
== END ==
LOC: BARWHC3 13:02
PROVIDERS: ATTEND Surgery
DX: E66.01 Morbid (severe) obesity due to excess calories (principal); Z71.3 Dietary counseling and surveillance; Z68.41 Body mass index [BMI] 40.0-44.9, adult; Z98.84 Bariatric surgery status; Z91.013 Allergy to seafood
CPT/HCPCS: 97803; 99211

== ENCOUNTER → 2022-08-03 | Outpatient (CLI) | payer BC ==
[2022-08-03 13:19] VITALS: BP 116/85; PULSE 75; TEMP 97.7; BMI 39.5
--- NOTE | 2022-09-01 11:29 | P.HPBAR ---
Bariatric H&P - History & Physicial H&P Date: 08/03/22 History & Physicial: Visit/CC: sleeve F/U Patient initial contact: Initial weight: 131.088 kg Initial weight in pounds: 289.00 Height: 5 ft 8 in Initial BMI: 43.9 Last weight: Current weight: 117.934 kg Current weight in pounds: 260.00 Current BMI: 39.5 [place] body weight (based on NIH guidelines): 63.503 kg Excess body weight loss: 19.4% Patient The patient is a 32 year-old F who presents for Bariatric Assessment. Patient presents today for sleeve gastric fall. She's lost 13 pounds her last visit. She's had some minimal GERD. She denies any dysphagia. Past Medical History Past Medical History: No Reported History Additional Past Medical History / Comment(s): + COVID TEST 04/07/21 History of Any Multi-Drug Resistant Organisms: None Reported Past Surgical History: Bariatric Surgery, Cholecystectomy Additional Past Surgical History / Comment(s): gastric sleeve 07/13/22 Past Anesthesia/Blood Transfusion Reactions: No Reported Reaction Additional Past Anesthesia/Blood Transfusion Reaction / Comm: Pt has never had a blood transfusion. Past Psychological History: No Psychological Hx Reported Additional Psychological History / Comment(s): Pt resides with spouse and children. Smoking Status: Never smoker Past Alcohol Use History: Occasional Past Drug Use History: None Reported - Past Family History Mother Family Medical History: No Reported History Surgical - Exam Vital Signs Temp Pulse BP 97.7 F 75 116/85 08/03/22 13:15 08/03/22 13:15 08/03/22 13:15 - General well developed, well nourished, no distress - Eyes PERRL - ENT normal pinna - Neck no masses - Respiratory normal expansion - Cardiovascular Rhythm: regular - Abdomen Abdomen: soft, non tender Bariatric Assessment & Plan Plan: Status post sleeve gastrectomy. Patient's GERD is minimal will be observed. Follow-up in 4 weeks. Bariatric Checklist Checklist: Plan: Checklist: EGD: 1. Hiatal hernia: 2. H. Pylori: HgbA1c: Vitamin D: Smoking: Never smoker Primary care physician referral: DR. MATIAS Psychiatry clearance: Cardiology clearance: Sleep study: Diet journal: VTE risk score: VTE risk level: Rehab needs at discharge:
== END ==
LOC: BARWHC3 12:51
PROVIDERS: ATTEND Surgery
DX: E66.01 Morbid (severe) obesity due to excess calories (principal); Z68.36 Body mass index [BMI] 36.0-36.9, adult; Z71.3 Dietary counseling and surveillance; Z98.84 Bariatric surgery status; K21.9 Gastro-esophageal reflux disease without esophagitis; Z91.013 Allergy to seafood
CPT/HCPCS: 97803; 99211

== ENCOUNTER → 2022-09-01 | Outpatient (CLI) | payer BC ==
[2022-09-01 20:30] LABS: % Iron Saturation 29.27; ALT 75 U/L; AST 60 U/L; Albumin 4.3 d/dL; Albumin/Globulin Ratio 2.05 Ratio; Alkaline Phosphatase 59 U/L; BUN/Creat Ratio 10.83 Ratio; Blood Urea Nitrogen 6.5 mg/dL; Calcium 9.7 mg/dL; Carbon Dioxide 27.9 mmol/L; Chloride 99 mmol/L; Globulin 2.1 d/dL; Glucose 88 mg/dL; Iron 72 UG/DL; Magnesium 1.8 mg/dL; Potassium 4.1 mmol/L; Sodium 140 mmol/L; Total Bilirubin 0.4 mg/dL; Total Iron Binding Capacity 246 UG/DL; Total Protein 6.4 d/dL
[2022-09-02 01:27] LABS: HCT 40.6 %; HGB 12.4 d/dL; MCH 25.9 pg; MCHC 30.5 d/dL; MCV 84.8 FL; Mean Platelet Volume 12.5 FL; NRBC Per 100 WBC 0 X 10*3/uL; Platelet Count 219 X 10*3/uL; RBC 4.79 X 10*6/uL; RDW 15.4 %
[2022-09-02 02:25] LABS: Ferritin 54.6 ng/mL
== END | disposition home or self-care (01) ==
LOC: LABWHC1 13:14
PROVIDERS: ATTEND Surgery
DX: D50.8 Other iron deficiency anemias (principal); E55.9 Vitamin D deficiency, unspecified; T56.894A Toxic effect of other metals, undetermined, initial encounter; K90.9 Intestinal malabsorption, unspecified
CPT/HCPCS: 36415; 80053; 82306; 82607; 82728; 82746; 83540; 83550; 83735; 84255; 84425; 84443; 84590; 84630; 85027

== ENCOUNTER → 2022-09-07 | Outpatient (CLI) | payer BC ==
[2022-09-07 14:56] VITALS: BP 120/84; PULSE 80; TEMP 98.1; BMI 37.5
--- NOTE | 2022-10-05 09:44 | P.HPBAR ---
Bariatric H&P - History & Physicial H&P Date: 09/07/22 History & Physicial: Visit/CC: three month follow up Patient initial contact: Initial weight: 131.088 kg Initial weight in pounds: 289.00 Height: 5 ft 8 in Initial BMI: 43.9 Last weight: Current weight: 112.037 kg Current weight in pounds: 247.00 Current BMI: 37.5 [place] body weight (based on NIH guidelines): 63.503 kg Excess body weight loss: 28.1% The patient is a 32 year-old F who presents for Bariatric Assessment. Patient presents today for bariatric follow-up. Fairly well. She is an excellent weight loss. She's had minimal GERD. Past Medical History Past Medical History: No Reported History Additional Past Medical History / Comment(s): + COVID TEST 04/07/21 History of Any Multi-Drug Resistant Organisms: None Reported Past Surgical History: Bariatric Surgery, Cholecystectomy Additional Past Surgical History / Comment(s): gastric sleeve 07/13/22 Past Anesthesia/Blood Transfusion Reactions: No Reported Reaction Additional Past Anesthesia/Blood Transfusion Reaction / Comm: Pt has never had a blood transfusion. Past Psychological History: No Psychological Hx Reported Additional Psychological History / Comment(s): Pt resides with spouse and children. Smoking Status: Never smoker Past Alcohol Use History: Occasional Past Drug Use History: None Reported - Past Family History Mother Family Medical History: No Reported History Surgical - Exam Vital Signs Temp Pulse BP 98.1 F 80 120/84 09/07/22 14:52 09/07/22 14:52 09/07/22 14:52 - General well developed, well nourished, no distress - Eyes PERRL - ENT normal pinna, normal nares - Neck no masses - Respiratory normal expansion - Cardiovascular Rhythm: regular - Abdomen Abdomen: soft, non tender Bariatric Assessment & Plan Plan: Patient's doing well. Her GERD is minimal and will be observed. She'll follow- up in 4 weeks. Bariatric Checklist Checklist: Plan: Checklist: EGD: 1. Hiatal hernia: 2. H. Pylori: HgbA1c: Vitamin D: Smoking: Never smoker Primary care physician referral: DR. MATIAS Psychiatry clearance: Cardiology clearance: Sleep study: Diet journal: VTE risk score: VTE risk level: Rehab needs at discharge:
== END ==
LOC: BARWHC3 13:03
PROVIDERS: ATTEND Surgery
DX: E66.01 Morbid (severe) obesity due to excess calories (principal); Z68.37 Body mass index [BMI] 37.0-37.9, adult; Z91.013 Allergy to seafood
CPT/HCPCS: 99211

== ENCOUNTER → 2022-10-05 | Outpatient (CLI) | payer BC ==
[2022-10-05 14:01] VITALS: BP 121/80; PULSE 76; TEMP 98.1; BMI 34.9
--- NOTE | 2022-10-23 09:46 | P.HPBAR ---
Bariatric H&P - History & Physicial H&P Date: 10/05/22 History & Physicial: Visit/CC: sleeve F/U Patient initial contact: Initial weight: 131.088 kg Initial weight in pounds: 289.00 Height: 5 ft 8 in Initial BMI: 43.9 Last weight: Current weight: 104.326 kg Current weight in pounds: 230.00 Current BMI: 34.9 [place] body weight (based on NIH guidelines): 63.503 kg Excess body weight loss: 39.5% The patient is a 32 year-old F who presents for Bariatric Assessment. Patient presents today for sleeve gastrectomy fall. She's been doing well. She has minimal complaints of pain. She's had some mild GERD. Past Medical History Past Medical History: No Reported History Additional Past Medical History / Comment(s): + COVID TEST 04/07/21 History of Any Multi-Drug Resistant Organisms: None Reported Past Surgical History: Bariatric Surgery, Cholecystectomy Additional Past Surgical History / Comment(s): gastric sleeve 07/13/22 Past Anesthesia/Blood Transfusion Reactions: No Reported Reaction Additional Past Anesthesia/Blood Transfusion Reaction / Comm: Pt has never had a blood transfusion. Past Psychological History: No Psychological Hx Reported Additional Psychological History / Comment(s): Pt resides with spouse and children. Smoking Status: Never smoker Past Alcohol Use History: Occasional Past Drug Use History: None Reported - Past Family History Mother Family Medical History: No Reported History Surgical - Exam Vital Signs Temp Pulse BP 98.1 F 76 121/80 10/05/22 13:57 10/05/22 13:57 10/05/22 13:57 - General well developed, well nourished, no distress - Abdomen Abdomen: soft, non tender Bariatric Assessment & Plan Plan: That S post sleeve gastric. Patient GERD is minimal and will be observed. She'll follow-up in 4 weeks. Bariatric Checklist Checklist: Plan: Checklist: EGD: 1. Hiatal hernia: 2. H. Pylori: HgbA1c: Vitamin D: Smoking: Never smoker Primary care physician referral: DR. MATIAS Psychiatry clearance: Cardiology clearance: Sleep study: Diet journal: VTE risk score: VTE risk level: Rehab needs at discharge:
== END ==
LOC: BARWHC3 13:16
PROVIDERS: ATTEND Surgery
DX: E66.01 Morbid (severe) obesity due to excess calories (principal); Z71.3 Dietary counseling and surveillance; Z68.34 Body mass index [BMI] 34.0-34.9, adult; Z98.84 Bariatric surgery status; K21.9 Gastro-esophageal reflux disease without esophagitis; Z91.013 Allergy to seafood
CPT/HCPCS: 97803; 99211

== ENCOUNTER → 2022-11-09 | Outpatient (CLI) | payer BC ==
[2022-11-09 14:30] VITALS: BP 123/92; PULSE 74; TEMP 98.4; BMI 32.3
--- NOTE | 2022-11-17 15:43 | P.HPBAR ---
Bariatric H&P - History & Physicial H&P Date: 11/09/22 History & Physicial: Visit/CC: four month follow up Patient initial contact: Initial weight: 131.088 kg Initial weight in pounds: 289.00 Height: 5 ft 8 in Initial BMI: 43.9 Last weight: Current weight: 96.615 kg Current weight in pounds: 213.00 Current BMI: 32.3 [place] body weight (based on NIH guidelines): 63.503 kg Excess body weight loss: 51.0% The patient is a 32 year-old F who presents for Bariatric Assessment.Patient presents today for bariatric follow-up. She is lost 7 pounds since her last visit. She has mild GERD. She denies any dysphagia. Past Medical History Past Medical History: No Reported History Additional Past Medical History / Comment(s): + COVID TEST 04/07/21 History of Any Multi-Drug Resistant Organisms: None Reported Past Surgical History: Bariatric Surgery, Cholecystectomy Additional Past Surgical History / Comment(s): gastric sleeve 07/13/22 Past Anesthesia/Blood Transfusion Reactions: No Reported Reaction Additional Past Anesthesia/Blood Transfusion Reaction / Comm: Pt has never had a blood transfusion. Past Psychological History: No Psychological Hx Reported Additional Psychological History / Comment(s): Pt resides with spouse and children. Smoking Status: Never smoker Past Alcohol Use History: Occasional Past Drug Use History: None Reported - Past Family History Mother Family Medical History: No Reported History Surgical - Exam Vital Signs Temp Pulse BP 98.4 F 74 123/92 11/09/22 14:16 11/09/22 14:16 11/09/22 14:16 - General well developed, well nourished, no distress - Eyes PERRL - ENT normal pinna, normal nares - Neck no masses - Respiratory normal expansion - Cardiovascular Rhythm: regular - Abdomen Abdomen: soft, non tender Bariatric Assessment & Plan Plan: Resolving morbid obese. Patient's GERD is minimal and will observe. She will follow-up in 4 weeks. Bariatric Checklist Checklist: Plan: Checklist: EGD: 1. Hiatal hernia: 2. H. Pylori: HgbA1c: Vitamin D: Smoking: Never smoker Primary care physician referral: DR. MATIAS Psychiatry clearance: Cardiology clearance: Sleep study: Diet journal: VTE risk score: VTE risk level: Rehab needs at discharge:
== END ==
LOC: BARWHC3 12:50
PROVIDERS: ATTEND Surgery
DX: E66.01 Morbid (severe) obesity due to excess calories (principal); K21.9 Gastro-esophageal reflux disease without esophagitis; Z68.32 Body mass index [BMI] 32.0-32.9, adult; Z98.84 Bariatric surgery status; Z48.815 Encounter for surgical aftercare following surgery on the digestive system; Z86.16 Personal history of COVID-19; Z91.013 Allergy to seafood
CPT/HCPCS: 99211

== ENCOUNTER → 2023-01-25 | Outpatient (CLI) | payer BC ==
--- NOTE | 2023-01-25 07:41 | MM ---
Reason for Exam: Clinical finding. Baseline mammogram. Indicated Problems: Pain of the right side (Global) for 1 Month(s). Patient History: Menarche at age 14. First Full-Term at age 22. Patient has history of breast feeding. Patient used Hormonal Contraceptives for 15 years. Prior Study Comparison: Patient's first Mammogram. Tissue Density: The breast tissue is heterogeneously dense. This may lower the sensitivity of mammography. Findings: Analyzed By CAD. Nothing to correlate with right breast palpable abnormality. No new suspicious masses, calcifications or distortions. Overall Assessment: Negative, BI-RAD 1 Management: Diagnostic Breast Ultrasound of the right breast. Results were given to the patient verbally at the time of exam. Patient should continue monthly self-breast exams. A clinical breast exam by your physician is recommended on an annual basis. This exam should not preclude additional follow-up of suspicious palpable abnormalities. Note on Yara scores and lifetime risk: 1. A Yara score greater than 3% is considered moderate risk. If this is the case, consider specialist referral to assess eligibility for a risk reducing agent. 2. If overall lifetime risk for the development of breast cancer is 20% or higher, the patient may qualify for future screening with alternating mammogram and breast MRI. Electronically signed and approved by: Carter Glass DO
--- NOTE | 2023-01-25 08:01 | USB ---
Reason for Exam: Clinical finding. Patient History: Menarche at age 14. First Full-Term at age 22. Patient has history of breast feeding. Patient used Hormonal Contraceptives for 15 years. Technique: Method: Targeted. Findings: The area of palpable concern of the right breast, the medial section of the breast of the right breast, the axilla of the right breast and the retroareolar of the right breast were scanned. Technique utilized:US breast limited RT Image; Ultrasound imaging of: Area of concern, retroareolar region and axilla. No finding to correlate with patient's symptomology. No evidence for organizing fluid collection or mass. Management: Screening Mammogram of both breasts at age 41. A clinical breast exam by your physician is recommended on an annual basis and results should be correlated with mammographic findings. This exam should not preclude additional follow-up of suspicious palpable abnormalities. Results were given to the patient verbally at the time of exam. Electronically signed and approved by: Carter Glass DO
== END | disposition home or self-care (01) ==
LOC: RADMAMWWP 07:04
PROVIDERS: ATTEND Obstetrics & Gynecology Obstetrics
DX: N63.10 Unspecified lump in the right breast, unspecified quadrant (principal); N64.4 Mastodynia; R92.333 Mammographic heterogeneous density, bilateral breasts
CPT/HCPCS: 77062; 77066

== ENCOUNTER 2024-06-22 21:17 | Emergency (ER) | payer BC ==
--- NOTE | 2024-06-22 21:51 | ED ---
General Adult HPI - General Chief complaint: Vaginal Bleeding Stated complaint: 6 wks-vaginal bleeding Time Seen by Provider: 06/22/24 21:50 Source: patient Mode of arrival: ambulatory Limitations: no limitations - History of Present Illness Initial comments: Torie is a female with history of recurrent early losses who presents to the ER with a complaint of vaginal bleeding. Patient reports her last menstrual cycle was May 12. She had a positive test last week, she reports some mild menstrual-like cramping that was not concerning to her. She states that today she was on a really long walking when she got back she had some mild spotting. Patient notes that due to her previous early losses during her most recent pregnancies her OB Dr. Garcia is prescribed vaginal progesterone suppositories, she contacted her early today regarding the newly identified but has not heard back to start the p rogesterone. - Related Data Home Medications Medication Instructions Recorded Confirmed Cetirizine HCl [Zyrtec] 10 mg PO DAILY PRN 12/03/19 11/09/22 ALPRAZolam [Xanax] 0.25 mg PO DIRECTED PRN 03/03/21 11/09/22 Venlafaxine HCl ER [Effexor XR] 150 mg PO HS 03/03/21 11/09/22 Fexofenadine/Pseudoephedrine 1 tab PO DAILY PRN 07/07/21 11/09/22 [Kisha-D 24 Hour Tablet] Citalopram Hydrobromide [CeleXA] 10 mg PO HS 07/06/22 11/09/22 Ergocalciferol [Vitamin D2 (1250 50,000 unit PO WEEKLY 09/07/22 11/09/22 Mcg = 98557 Iu)] Omeprazole 20 mg PO DAILY 09/07/22 11/09/22 Vitamin A 10,000 unit PO DAILY 09/07/22 11/09/22 Allergies Allergy/AdvReac Type Severity Reaction Status Date / Time shellfish derived [Lobster] Allergy Unknown Unknown Verified 07/17/22 11:26 Childhood Review of Systems ROS Statement: Those systems with pertinent positive or pertinent negative responses have been documented in the HPI. ROS Other: All systems not noted in ROS Statement are negative. Past Medical History Past Medical History: No Reported History Additional Past Medical History / Comment(s): + COVID TEST 04/07/21 History of Any Multi-Drug Resistant Organisms: None Reported Past Surgical History: Bariatric Surgery, Cholecystectomy Additional Past Surgical History / Comment(s): gastric sleeve 07/13/22 Past Anesthesia/Blood Transfusion Reactions: No Reported Reaction Additional Past Anesthesia/Blood Transfusion Reaction / Comment(s): Pt has never had a blood transfusion. Past Psychological History: No Psychological Hx Reported Smoking Status: Never smoker Past Alcohol Use History: Occasional Past Drug Use History: None Reported - Past Family History Mother Family Medical History: No Reported History General Exam - General Exam Comments Initial Comments: Physical Exam GENERAL: Patient is well-developed and well-nourished. Patient is nontoxic and well-hydrated and is in no distress. HENT: Normocephalic, Atraumatic. EYES: PERRL, EOMI PULMONARY: Unlabored respirations. CARDIOVASCULAR: RRR Warm and well perfused extremities ABDOMEN: Non-distended SKIN: No rashes or bruising : Patient declined pelvic exam NEUROLOGIC: Alert and oriented Normal speech Normal gait MUSCULOSKELETAL: Moving all extremities with no apparent injury PSYCHIATRIC: No SI/HI Limitations: no limitations Course Vital Signs 06/22/24 21:44 Temperature 98.1 F Pulse Rate 79 Respiratory 20 Rate Blood Pressure 120/70 O2 Sat by Pulse 99 Oximetry Medical Decision Making - Medical Decision Making Was pt. sent in by a medical professional or institution ([facility], P[employer], urgent care, hospital, or [facility]...) When possible be specific @ -No Did you speak to anyone other than the patient for history (EMS, parent, family, police, friend...)? What history was obtained from this source @ -No Did you review nursing and triage notes (agree or disagree)? Why? @ -I reviewed and agree with nursing and triage notes Were old charts reviewed (outside hosp., previous admission, EMS record, old EKG, old radiological studies, urgent care reports/EKG's, [facility] records)? Report findings @ -No old charts were reviewed Differential Diagnosis (chest pain, altered mental status, abdominal pain women, abdominal pain men, vaginal bleeding, weakness, fever, dyspnea, syncope, headache, dizziness, GI bleed, back pain, seizure, CVA, palpatations, mental health)? @ -Not applicable EKG interpreted by me (3pts min.). @ -As above X-rays interpreted by me (1pt min.). @ -None done CT interpreted by me (1pt min.). @ -None done U/S interpreted by me (1pt. min.). @Patient declined ultrasound What testing was considered but not performed or refused? (CT, X-rays, U/S, labs)? Why? @ -Patient declined ultrasound as she is not having any discomfort no concern for ectopic as she has no history of and does have history of early loss What meds were considered but not given or refused? Why? @ -None Did you discuss the management of the patient with other professionals (professionals i.e. , PA, PAPER RULER, lab, RT, psych nurse, social service worker, best worker, teacher, immigration services officer, telephonic nurse case manager)? Give summary @ -No Was smoking cessation discussed for >3mins.? @ -No Was critical care preformed (if so, how long)? @ -No Were there social determinants of health that impacted care today? How? (Homelessness, low income, unemployed, alcoholism, drug addiction, transportation, low edu. Level, literacy, decrease access to med. care, residential, rehab)? @ -No Was there de-escalation of care discussed even if they declined (Discuss DNR or withdrawal of care, Hospice)? DNR status @ -No What co-morbidities impacted this encounter? (DM, HTN, Smoking, COPD, CAD, Cancer, CVA, ARF, Chemo, Hep., AIDS, mental health diagnosis, sleep apnea, morbid obesity)? @ -None Was patient admitted / discharged? Hospital course, mention meds given and route, prescriptions, significant lab abnormalities, going to OR and other pertinent info. @ -Discharged home Patient was seen and evaluated labs were obtained beta-hCG levels discussed with patient she will follow-up with her OB for trending of this. Undiagnosed new problem with uncertain prognosis? @ -No Drug Therapy requiring intensive monitoring for toxicity (Heparin, Nitro, Insulin, Cardizem)? @ -No Were any procedures done? @ -No Diagnosis/symptom? @ -Vaginal bleeding in first trimester Acute, or Chronic, or Acute on Chronic? @ -Default Uncomplicated (without systemic symptoms) or Complicated (systemic symptoms)? @ -Default Side effects of treatment? @ -No Exacerbation, Progression, or Severe Exacerbation? @ -No Poses a threat to life or bodily function? How? (Chest pain, USA, ID, pneumonia, PE, COPD, DKA, ARF, appy, cholecystitis, CVA, Diverticulitis, Homicidal, Suicidal, threat to staff... and all critical care pts) @ -No - Lab Data Lab Results 06/22/24 Range/Units 22:43 HCG, Quant 3178.4 mIU/mL Disposition Clinical Impression: Vaginal bleeding before 22 weeks gestation Disposition: HOME SELF-CARE Condition: Stable Instructions (If sedation given, give patient instructions): Threatened Miscarriage (ED) Is patient prescribed a controlled substance at d/c from ED?: No Referrals: Rosie Garcia DO [Doctor of Osteopathic Medicine] - 1-2 days
[2024-06-23 00:40] LABS: Appearance,Urine Clear (Clear); Bilirubin,Urine Negative (Negative); Blood,Urine Negative (Negative); Color,Urine Yellow; Glucose,Urine (UA) Negative (Negative); Ketones,Urine Negative (Negative); Leukocyte Esterase,Urine Negative (Negative); Nitrite,Urine Negative (Negative); PH, Urine 5.5 (5.0-8.0); Protein,Urine Negative (Negative); Specific Gravity,Urine 1.029 (1.001-1.035); Urobilinogen,Urine <2.0 mg/dL (<2.0)
[2024-06-23 01:05] VITALS: BP 125/80; PULSE 73; RESP 16; TEMP 98.2
== END 2024-06-23 01:05 | disposition home or self-care (01) ==
LOC: EC 21:17
DX: O46.91 Antepartum hemorrhage, unspecified, first trimester (principal); Z90.49 Acquired absence of other specified parts of digestive tract; Z91.013 Allergy to seafood; Z3A.01 Less than 8 weeks gestation of pregnancy
CPT/HCPCS: 36415; 81003; 84702; 99284

== ENCOUNTER 2024-07-24 16:52 | Emergency (ER) | payer BC ==
--- NOTE | 2024-07-24 18:09 | ED ---
General Adult HPI - General Chief complaint: Syncope Stated complaint: passed out,preg 10 wks Time Seen by Provider: 07/24/24 17:15 Source: patient, RN notes reviewed Mode of arrival: ambulatory Limitations: no limitations - History of Present Illness Initial comments: This is a 34-year-old female with history of bariatric surgery gastric sleeve in 2022, [id number], presenting to emergency department approximately 10 weeks gestation after syncopal event. Patient states he does have a history of vasovagal syncope and states that throughout the day today she felt extremely weak. Patient has been experiencing severe morning sickness with multiple episodes of emesis throughout the day. Patient states that she had a syncopal episode earlier today denies hitting her head. Currently states that she feels nauseous. Denies difficulty breathing, abdominal pain, vaginal bleeding, fevers, chills, urinary complaints. She denies history of DVT, PE, recent travel or surgeries. - Related Data Home Medications Medication Instructions Recorded Confirmed Cetirizine HCl [Zyrtec] 10 mg PO DAILY PRN 12/03/19 11/09/22 ALPRAZolam [Xanax] 0.25 mg PO DIRECTED PRN 03/03/21 11/09/22 Venlafaxine HCl ER [Effexor XR] 150 mg PO HS 03/03/21 11/09/22 Fexofenadine/Pseudoephedrine 1 tab PO DAILY PRN 07/07/21 11/09/22 [Kisha-D 24 Hour Tablet] Citalopram Hydrobromide [CeleXA] 10 mg PO HS 07/06/22 11/09/22 Ergocalciferol [Vitamin D2 (1250 50,000 unit PO WEEKLY 09/07/22 11/09/22 Mcg = 01812 Iu)] Omeprazole 20 mg PO DAILY 09/07/22 11/09/22 Vitamin A 10,000 unit PO DAILY 09/07/22 11/09/22 Allergies Allergy/AdvReac Type Severity Reaction Status Date / Time shellfish derived [Lobster] Allergy Unknown Unknown Verified 07/24/24 17:10 Childhood Review of Systems ROS Statement: Those systems with pertinent positive or pertinent negative responses have been documented in the HPI. ROS Other: All systems not noted in ROS Statement are negative. Past Medical History Past Medical History: No Reported History Additional Past Medical History / Comment(s): + COVID TEST 04/07/21 History of Any Multi-Drug Resistant Organisms: None Reported Past Surgical History: Bariatric Surgery, Cholecystectomy Additional Past Surgical History / Comment(s): gastric sleeve 07/13/22 Past Anesthesia/Blood Transfusion Reactions: No Reported Reaction Additional Past Anesthesia/Blood Transfusion Reaction / Comment(s): Pt has never had a blood transfusion. Past Psychological History: No Psychological Hx Reported Smoking Status: Never smoker Past Alcohol Use History: Occasional Past Drug Use History: None Reported - Past Family History Mother Family Medical History: No Reported History General Exam Limitations: no limitations General appearance: alert, in no apparent distress Neck exam: Present: normal inspection. Absent: tenderness, meningismus, lymphadenopathy Respiratory exam: Present: normal lung sounds bilaterally. Absent: respiratory distress, wheezes, rales, rhonchi, stridor Cardiovascular Exam: Present: regular rate, normal rhythm, normal heart sounds. Absent: systolic murmur, diastolic murmur, rubs, gallop, clicks GI/Abdominal exam: Present: soft, normal bowel sounds. Absent: distended, tenderness, guarding, rebound, rigid Extremities exam: Present: normal inspection, full ROM, normal capillary refill. Absent: tenderness, pedal edema, joint swelling, calf tenderness Back exam: Present: normal inspection Neurological exam: Present: alert, oriented X3, CN II-XII intact Course Vital Signs 07/24/24 07/24/24 17:07 20:41 Temperature 98.5 F 98.3 F Pulse Rate 77 68 Respiratory 18 16 Rate Blood Pressure 127/85 116/79 O2 Sat by Pulse 100 100 Oximetry Medical Decision Making - Medical Decision Making Was pt. sent in by a medical professional or institution (, PA, [employer], urgent care, hospital, or [facility]...) When possible be specific @ -No Did you speak to anyone other than the patient for history (EMS, parent, family, police, friend...)? What history was obtained from this source @ -No Did you review nursing and triage notes (agree or disagree)? Why? @ -I reviewed and agree with nursing and triage notes Were old charts reviewed (outside hosp., previous admission, EMS record, old EKG, old radiological studies, urgent care reports/EKG's, [facility] records)? Report findings @ -No old charts were reviewed Differential Diagnosis (chest pain, altered mental status, abdominal pain women, abdominal pain men, vaginal bleeding, weakness, fever, dyspnea, syncope, headache, dizziness, GI bleed, back pain, seizure, CVA, palpatations, mental health, musculoskeletal)? @ -Differential Syncope: Valvular disease, hypertrophic cardiomyopathy, pulmonary embolism, tamponade, tachycardia, bradycardia, VT, hypovolemia, hemorrhage, dissection, anemia, intracranial hemorrhage, seizure, hypoglycemia, carbon monoxide poisoning, this is not meant to be an all-inclusive list. EKG interpreted by me (3pts min.). @ -Completed at 1840 sinus rhythm and sinus arrhythmia, ventricular rate 64, HI interval 149, QRS 89, QT 404, QTc 413. X-rays interpreted by me (1pt min.). @ -None done CT interpreted by me (1pt min.). @ -None done U/S interpreted by me (1pt. min.). @ -Transabdominal ultrasound reveals a single live intrauterine with a calculated gestational age of 9 weeks 5 days with an estimated delivery date of 02/21/2025, heart rate 158 What testing was considered but not performed or refused? (CT, X-rays, U/S, labs)? Why? @ -None What meds were considered but not given or refused? Why? @ -None Did you discuss the management of the patient with other professionals (professionals i.e. , PA, [employer], lab, RT, psych nurse, dialysis social worker, day care provider, teacher, unemployment insurance hearing officer, caser shoe parts)? Give summary @ -No Was smoking cessation discussed for >3mins.? @ -No Was critical care preformed (if so, how long)? @ -No Were there social determinants of health that impacted care today? How? (Homelessness, low income, unemployed, alcoholism, drug addiction, transportation, low edu. Level, literacy, decrease access to med. care, assisted, rehab)? @ -No Was there de-escalation of care discussed even if they declined (Discuss DNR or withdrawal of care, Hospice)? DNR status @ -No What co-morbidities impacted this encounter? (DM, HTN, Smoking, COPD, CAD, Cancer, CVA, ARF, Chemo, Hep., AIDS, mental health diagnosis, sleep apnea, morbid obesity)? @ -None Was patient admitted / discharged? Hospital course, mention meds given and route, prescriptions, significant lab abnormalities, going to OR and other pertinent info. @ -discharged. 34-year-old female presenting to the emergency department after syncopal event. Overall patient is well-appearing in no signs of acute distress. Initial vitals are stable. EKG sinus rhythm. She is provided with 1 L fluid bolus in addition to Zofran for nausea. Laboratory testing including C BC, CMP, urinalysis and troponin unremarkable. My attending recommend that patient has an ultrasound order to ensure healthy . Ultrasound reveals a single live intrauterine with a gestational age of 9 weeks 5 days with a heart rate of 158. Reevaluation patient states that she still feeling mildly nauseous and provided with dose of Reglan. Patient is scheduled for appointment with OB in the next upcoming weeks. Return parameters discussed. Recommend follow-up with primary care provider. Case discussed with Dr. Mccord Undiagnosed new problem with uncertain prognosis? @ -No Drug Therapy requiring intensive monitoring for toxicity (Heparin, Nitro, Insulin, Cardizem)? @ -No Were any procedures done? @ -No Diagnosis/symptom? @ -Intrauterine , syncope Acute, or Chronic, or Acute on Chronic? @ -Acute Uncomplicated (without systemic symptoms) or Complicated (systemic symptoms)? @ -Uncomplicated Side effects of treatment? @ -No Exacerbation, Progression, or Severe Exacerbation? @ -No Poses a threat to life or bodily function? How? (Chest pain, USA, VT, pneumonia, PE, COPD, DKA, ARF, appy, cholecystitis, CVA, Diverticulitis, Homicidal, Suicidal, threat to staff... and all critical care pts) @ -No - Lab Data Result diagrams: 07/24/24 18:28 07/24/24 18:28 Lab Results 07/24/24 07/24/24 07/24/24 Range/Units 18:28 18:28 18:28 WBC 7.55 (4.50-10.00) 10*3/uL RBC 4.54 (4.10-5.20) 10*6/uL Hgb 13.1 (12.0-15.0) g/dL Hct 38.0 (37.2-46.3) % MCV 83.7 (80.0-97.0) fL MCH 28.9 (27.0-32.0) pg MCHC 34.5 (32.0-37.0) g/dL Plt Count 177 (140-440) 10*3/uL MPV 11.3 (9.5-12.2) fL Immature Gran % (Auto) 0.3 % Neutrophils % 58.0 % Lymphocytes % 32.6 % Monocytes % 5.6 % Eosinophils % 3.2 % Basophils % 0.3 % Immature Gran # 0.02 (0.00-0.04) 10*3/uL Neutrophils # 4.39 (1.80-7.70) 10*3/uL Lymphocytes # 2.46 (0.90-5.00) 10*3/uL Monocytes # 0.42 (0.20-1.00) 10*3/uL Eosinophils # 0.24 (0.04-0.35) 10*3/uL Basophils # 0.02 (0.00-0.10) 10*3/uL PT 10.5 (10.0-12.5) sec INR 0.9 (<1.2) APTT 23.2 (22.0-30.0) sec Sodium (137-145) mmol/L Potassium (3.5-5.1) mmol/L Chloride (98-107) mmol/L Carbon Dioxide (22-30) mmol/L Anion Gap mmol/L BUN (7-17) mg/dL Creatinine (0.52-1.04) mg/dL Est GFR (CKD-EPI)AfAm (>60 ml/min/1.73 sqM) Est GFR (CKD-EPI)NonAf (>60 ml/min/1.73 sqM) Glucose (74-99) mg/dL Calcium (8.4-10.2) mg/dL Magnesium (1.6-2.3) mg/dL Total Bilirubin (0.2-1.3) mg/dL AST (14-36) U/L ALT (4-34) U/L Alkaline Phosphatase (38-126) U/L Troponin I (0.000-0.034) ng/mL Total Protein (6.3-8.2) g/dL Albumin (3.5-5.0) g/dL Urine Color Yellow Urine Appearance Clear (Clear) Urine pH 6.5 (5.0-8.0) Ur Specific [place] 1.029 (1.001-1.035) Urine Protein Negative (Negative) Urine Glucose (UA) Negative (Negative) Urine Ketones Negative (Negative) Urine Blood Negative (Negative) Urine Nitrite Negative (Negative) Urine Bilirubin Negative (Negative) Urine Urobilinogen 2.0 (<2.0) mg/dL Ur Leukocyte Esterase Negative (Negative) 07/24/24 07/24/24 Range/Units 18:28 18:28 WBC (4.50-10.00) 10*3/uL RBC (4.10-5.20) 10*6/uL Hgb (12.0-15.0) g/dL Hct (37.2-46.3) % MCV (80.0-97.0) fL MCH (27.0-32.0) pg MCHC (32.0-37.0) g/dL Plt Count (140-440) 10*3/uL MPV (9.5-12.2) fL Immature Gran % (Auto) % Neutrophils % % Lymphocytes % % Monocytes % % Eosinophils % % Basophils % % Immature Gran # (0.00-0.04) 10*3/uL Neutrophils # (1.80-7.70) 10*3/uL Lymphocytes # (0.90-5.00) 10*3/uL Monocytes # (0.20-1.00) 10*3/uL Eosinophils # (0.04-0.35) 10*3/uL Basophils # (0.00-0.10) 10*3/uL PT (10.0-12.5) sec INR (<1.2) APTT (22.0-30.0) sec Sodium 133 L (137-145) mmol/L Potassium 4.1 (3.5-5.1) mmol/L Chloride 101 (98-107) mmol/L Carbon Dioxide 23 (22-30) mmol/L Anion Gap 9 mmol/L BUN 10 (7-17) mg/dL Creatinine 0.45 L (0.52-1.04) mg/dL Est GFR (CKD-EPI)AfAm >90 (>60 ml/min/1.73 sqM) Est GFR (CKD-EPI)NonAf >90 (>60 ml/min/1.73 sqM) Glucose 80 (74-99) mg/dL Calcium 9.5 (8.4-10.2) mg/dL Magnesium 1.9 (1.6-2.3) mg/dL Total Bilirubin 0.5 (0.2-1.3) mg/dL AST 28 (14-36) U/L ALT 35 H (4-34) U/L Alkaline Phosphatase 34 L (38-126) U/L Troponin I <0.012 (0.000-0.034) ng/mL Total Protein 7.1 (6.3-8.2) g/dL Albumin 4.3 (3.5-5.0) g/dL Urine Color Urine Appearance (Clear) Urine pH (5.0-8.0) Ur Specific [place] (1.001-1.035) Urine Protein (Negative) Urine Glucose (UA) (Negative) Urine Ketones (Negative) Urine Blood (Negative) Urine Nitrite (Negative) Urine Bilirubin (Negative) Urine Urobilinogen (<2.0) mg/dL Ur Leukocyte Esterase (Negative) Disposition Clinical Impression: Vasovagal syncope Disposition: HOME SELF-CARE Condition: Good Instructions (If sedation given, give patient instructions): Syncope (ED) Additional Instructions: Please return to the Emergency Department if symptoms worsen or any other concerns. Is patient prescribed a controlled substance at d/c from ED?: No Referrals: Talha Braun MD [Primary Care Provider] - 1-2 days Time of Disposition: 20:28
[2024-07-24] MEDS: ONDANSETRON 4 MG/2 ML VIAL IVP STA (18:35)
[2024-07-24] MEDS: SODIUM CHLORIDE 0.9% 1,000 ML IV STA (18:35)
[2024-07-24 18:48] LABS: Basophils # (A) 0.02 10*3/uL (0.00-0.10); Basophils % (A) 0.3 %; Eosinophils # (A) 0.24 10*3/uL (0.04-0.35); Eosinophils % (A) 3.2 %; HGB 13.1 g/dL (12.0-15.0); Lymphocytes # (A) 2.46 10*3/uL (0.90-5.00); Lymphocytes % (A) 32.6 %; MCH 28.9 pg (27.0-32.0); MCHC 34.5 g/dL (32.0-37.0); MCV 83.7 fL (80.0-97.0); Mean Platelet Volume 11.3 fL (9.5-12.2); Monocytes # (A) 0.42 10*3/uL (0.20-1.00); Monocytes % (A) 5.6 %; Neutrophils # (A) 4.39 10*3/uL (1.80-7.70); Platelet Count 177 10*3/uL (140-440); RBC 4.54 10*6/uL (4.10-5.20); RDW 13.2 % (11.5-14.5); WBC 7.55 10*3/uL (4.50-10.00)
[2024-07-24 18:50] LABS: Appearance,Urine Clear (Clear); Bilirubin,Urine Negative (Negative); Blood,Urine Negative (Negative); Color,Urine Yellow; Glucose,Urine (UA) Negative (Negative); Ketones,Urine Negative (Negative); Leukocyte Esterase,Urine Negative (Negative); Nitrite,Urine Negative (Negative); PH, Urine 6.5 (5.0-8.0); Protein,Urine Negative (Negative); Specific Gravity,Urine 1.029 (1.001-1.035)
[2024-07-24 19:00] LABS: ALT 35 U/L (4-34); AST 28 U/L (14-36); African American GFR (CKD) >90 (>60 ml/min/1.73 sqM); Albumin 4.3 g/dL (3.5-5.0); Alkaline Phosphatase 34 U/L (38-126); Anion Gap 9 mmol/L; Blood Urea Nitrogen 10 mg/dL (7-17); Calcium 9.5 mg/dL (8.4-10.2); Carbon Dioxide 23 mmol/L (22-30); Chloride 101 mmol/L (98-107); Glucose 80 mg/dL (74-99); Magnesium 1.9 mg/dL (1.6-2.3); Non-African American GFR(CKD) >90 (>60 ml/min/1.73 sqM); Potassium 4.1 mmol/L (3.5-5.1); Sodium 133 mmol/L (137-145); Total Bilirubin 0.5 mg/dL (0.2-1.3); Total Protein 7.1 g/dL (6.3-8.2)
[2024-07-24 19:09] LABS: INR 0.9 (<1.2); Partial Thromboplastin Time 23.2 sec (22.0-30.0); Prothrombin Time 10.5 sec (10.0-12.5)
--- NOTE | 2024-07-24 20:23 | US ---
EXAMINATION TYPE: Transabdominal DATE OF EXAM: 07/24/2024 8:04 PM COMPARISON: NONE for this CLINICAL INDICATION: Female, 34 years old with history of syncope, 10 weeks; patient states syncope. very bad nausea. no abd pain, cramping, or bleeding. Patient has had prior ultrasound elsewhere TECHNIQUE: Transabdominal (TA) with grayscale and color Doppler imaging including first trimester pre gnancy. FINDINGS: EXAM MEASUREMENTS: GESTATIONAL AGE / DATING Physician Established: (10 weeks/0 days) EDC: 02/19/2025 Dates by LMP: (10 weeks/0 days) EDC: 02/19/2025 Dates by First Scan: No previous this is first scan at this facility Dates by Current Scan for: (9 weeks/5 days) EDC: 02/21/2025 MATERNAL ANATOMY Uterus: 11.0 x 7.6 x 8.3cm Right Ovary: 3.2 x 2.7 x 2.2cm. There is a 2.0 x 1.4 x 1.8cm complex area seen within Left Ovary: obscured by gas Post CDS / Adnexa: wnl as best seen Presence of free fluid: not seen Presence of corpus luteal cyst: possible 2.0 x 1.4 x 1.8cm complex area seen within the right ovary Presence of subchorionic bleed: not seen GESTATION / SURVEY CRL: 2.81 (9 weeks/5 days) Gestational Sac morphology: Normal Yolk Sac (normal less than 6mm): 5mm Cardiac Activity/Heart Rate: 158 bpm Rhythm: Normal IUP: Viable IUP Date of LMP: patient did not give LMP Beta HcG (if available): Quant HCG not ordered IMPRESSION: Single live intrauterine with calculated ultrasound age of 9 weeks 5 days by crown-rump janie gth, estimated date of delivery of 02/21/2025 [facility], , 07/24/2024 8:21 PM
[2024-07-24] MEDS: METOCLOPRAMIDE 5 MG/ML 2 ML VIAL IVP STA (20:37)
[2024-07-24] MEDS: METOCLOPRAMIDE 10 MG TAB PO STA (20:40)
[2024-07-24 20:43] VITALS: BP 116/79; PULSE 68; RESP 16; TEMP 98.3
== END 2024-07-24 20:41 | disposition home or self-care (01) ==
LOC: EC 16:52
DX: O26.891 Other specified pregnancy related conditions, first trimester (principal); Z91.013 Allergy to seafood; Z3A.10 10 weeks gestation of pregnancy
CPT/HCPCS: 36415; 93005; 80053; 83735; 84484; 85025; 85610; 85730; 81003; 76801; 99284; 96374; 96361 ×2; J2405